=== PATIENT | female | born 1985 | race Caucasian/White ===

== ENCOUNTER 2016-12-02 17:27 | Emergency (ER) | payer BC ==
[2016-12-02 17:44] VITALS: BP 113/79
--- NOTE | 2016-12-02 18:23 | UC ---
Skin Complaint HPI - HPI Summary HPI Summary: The patient comes in today for: 1. Rash, and history of kidney stones and infections: Onset: The spot was noted "a few days ago" and she has been feeling cold in the 90 degree weather for today. Palliative/provocative: Sleep makes her symptoms better. Quality: Body aches and flank pain. Region: Rash if the inner right ankle and the back pain is over the flank areas. Severity: 5/10 Time: Constant. Associated symptoms: Chills. She does not know if she has been bitten by anything. But, her father thinks that the skin lesion "looks like a tick bite." She said that initially, she was not particularly concerned about it, but people around her told her that she "better get it checked." * - History of Current Complaint Chief Complaint: UCBackPain Time Seen by Provider: 12/02/16 18:16 Stated Complaint: FLANK PAIN,TICK BITE Hx Obtained From: Patient Hx Last Menstrual Period: 3 WEEKS AGO ?: No - Allergy/Home Medications Allergies/Adverse Reactions: Allergies Allergy/AdvReac Type Severity Reaction Status Date / Time Molds & Smuts Allergy Severe Congestion Verified 12/02/16 17:45 NSAIDs Allergy Severe SEE Verified 12/02/16 17:47 COMMENTS Shellfish Allergy Allergy Severe Anaphylatic Verified 12/02/16 17:45 Shock Bacitracin [From Neosporin] Allergy Swelling Verified 12/02/16 17:45 Hydromorphone [From Dilaudid] Allergy APNEA Verified 12/02/16 17:45 Neomycin [From Neosporin] Allergy Swelling Verified 12/02/16 17:45 Polymyxin B [From Neosporin] Allergy Swelling Verified 12/02/16 17:45 Tramadol Allergy Hallucinati Verified 12/02/16 17:45 ons DHE Allergy UNABLE TO Uncoded 06/11/16 21:07 SWALLOW Home Medications: Home Medications Bethanechol TAB* [Urecholine TAB*] 10 mg PO QID 12/02/16 [History Confirmed ] Sucralfate TAB* [Carafate*] 1 gm PO QID 12/02/16 [History Confirmed 12/02/16] Topiramate [Trokendi Xr] 12/02/16 [History] Review of Systems Constitutional: Negative, Chills - Chills in the office cold with AC. Skin: Rash Eyes: Negative ENT: Negative Respiratory: Negative Cardiovascular: Negative Gastrointestinal: Negative Genitourinary: Frequency Musculoskeletal: Arthralgia, Myalgia All Other Systems Reviewed And Are Negative: Yes PMH/Surg Hx/FS Hx/Imm Hx Previously Healthy: No - Gastroparesis, Herpes, Gastritis, Family planning/BCP, colon polyps Endocrine History Of: Denies: Diabetes, Thyroid Disease, Hyperthyroidism, Hypothyroidism, Dyslipidemia Cardiovascular History Of: Denies: Cardiac Disorders, Hypertension, Pacemaker/ICD, Myocardial Infarction , Congestive Heart Failure, Atrial Fibrillation, Deep Vein Thrombosis, Bleeding Disorders Respiratory History Of: Denies: COPD, Asthma, Bronchitis, Pneumonia, Pulmonary Embolism GI/ History Of: Reports: Kidney Stones, Renal Disease - MAY HAVE SOME RENAL INSUFF WAS TOLD BY PMD NOT TO HAVE NSAIDS Denies: Gastroesophageal Reflux, Ulcer, Gastrointestinal Bleed, Gall Bladder Disease, Diverticulitis, Urosepsis Neurological History Of: Reports: Migraine Denies: TIA, CVA, Dementia, Seizures Psychological History Of: Reports: Depression Denies: Anxiety, Bipolar Disorder, Schizophrenia, Post Traumatic Stress Disorder Cancer History Of: Denies: Lung Cancer, Colorectal Cancer, Breast Cancer, Prostate Cancer, Cervical Cancer Other History Of: Negative For: HIV, Hepatitis B, Hepatitis C, Anticoagulant Therapy - Surgical History Surgical History: Yes Surgery Procedure, Year, and Place: UPPER PELVIC GRAFT- AGE 4. SCAR TISSUE REMOVED- AGE 25 - Family History Known Family History: Positive: Hypertension, Diabetes - Social History Occupation: Employed Full-time Alcohol Use: None Substance Use Type: None Smoking Status (MU): Never Smoked Tobacco Physical Exam Triage Information Reviewed: Yes Appearance: Well-Appearing, No Pain Distress, Well-Nourished Vital Signs: Initial Vital Signs Temp 98.2 F 12/02/16 17:38 Pulse 94 12/02/16 17:38 Resp 16 12/02/16 17:38 BP 113/79 12/02/16 17:38 Pulse Ox 99 12/02/16 17:38 Vital Signs Reviewed: Yes Eyes: Positive: Conjunctiva Clear. Negative: Discharge ENT: Positive: Hearing grossly normal. Negative: Pharyngeal erythema, Nasal congestion, Nasal drainage, TM bulging, TM dull, TM red, Tonsillar swelling, Tonsillar exudate Dental: Negative: Gross Decay/Caries @, Dental Fracture @ Neck: Positive: Supple, Nontender, No Lymphadenopathy. Negative: Nuchal Rigidity, Tenderness @ Respiratory: Positive: Chest non-tender, Lungs clear, No respiratory distress, No accessory muscle use. Negative: Crackles, Rhonchi Cardiovascular: Positive: RRR, No Murmur Abdomen Description: Positive: Nontender, No Organomegaly, Soft. Negative: CVA Tenderness (R), CVA Tenderness (L), Distended, Guarding Musculoskeletal: Positive: Strength Intact, ROM Intact Neurological: Positive: Alert, Muscle Tone Normal Psychological: Positive: Age Appropriate Behavior, Consolable Skin: Positive: Other - There was a dark, red macule of the right medial ankle which was non-tender.. Negative: rashes, breakdown Diagnostics - Laboratory Diagnostic Studies Completed/Ordered: Urine screen: Specific gravity: 1.015. WBC: (-). Nitrite: (-). Blood: (-). Protein: (-). Glucose: (-) Course/Dx - Course Course Of Treatment: The patient was told that her skin lesion on the medial right ankle did not resemble the usual rash of LYme disease and with her not knowing of any tick bite, at this time my recommendation was to monitor this. - Diagnoses Provider Diagnoses: Skin lesion Discharge - Discharge Plan Condition: Stable Disposition: HOME Patient Education Materials: Dermatitis (ED) Referrals: No Primary Care Phys,NOPCP [Primary Care Provider] - 1 Week (Please see your primary care provider in about a week to see how well you are doing. If you don't have a primary care provider, please contact the physician referral service. If you can't get in timely, please you may come back to see us until you can. If you get worse, please be seen sooner by us or the ER.) [facility]IAN REFERRAL [Outside]
== END 2016-12-02 19:10 | disposition home or self-care (01) ==
LOC: UCEAST 17:27
DX: L98.9 Disorder of the skin and subcutaneous tissue, unspecified (principal)
CPT/HCPCS: 81003; 99212; G0463

== ENCOUNTER → 2017-04-27 15:26 | Emergency (ER) | payer BC, OTHER ==
[~2017-04-27 15:26] MED LIST: HYDROcodone/ACETAMIN 5-325 MG* 1 TAB PO ONE; Ondansetron ODT TAB* 4 MG SL ONE
[2017-04-27 17:53] LABS: Urine Bilirubin Negative (Negative); Urine Glucose Negative (Negative); Urine Nitrite Negative (Negative)
--- NOTE | 2017-04-27 18:41 | ED ---
Back Pain - HPI Summary HPI Summary: Patient presents to the ED with CC of left flank pain after falling at work into a bar and hitting her head on a muffler. Denies LOC. Notes to some nausea. Denies visual changes, memory loss. States she had confusion immediatley following which has now dissipated. Denies other symptoms. She was concerned because she has a history of hydronephrosis of the right kidney and she feels she may have damaged her left kidney. There is bruising noted just over the left iliac crest and inferior to the left kidney. No CVA tenderness bilaterally. Denies urinary symptoms. - History of Current Complaint Chief Complaint: EDFlankPain Stated Complaint: FALL, LEFT FLANK PAIN, ARM PAIN Time Seen by Provider: 04/27/17 16:41 Hx Obtained From: Patient Hx Last Menstrual Period: 3 WEEKS AGO Onset/Duration: Sudden Onset Onset/Duration: Started Minutes Ago Timing: Constant Back Pain Location: Is Discrete @ - left hip and back Severity Initially: Moderate Severity Currently: Moderate Pain Intensity: 6 Pain Scale Used: 0-10 Numeric Character: Aching Aggravating Symptom(s): Movement Alleviating Symptom(s): Rest, Position Related History: Previous Back Injury - Risk Factors AAA Risk Factors: Negative TAD Risk Factors: Negative Cauda Equina Risk Factors: Negative Epidural Abscess Risk Factors: Negative - Allergies/Home Medications Allergies/Adverse Reactions: Allergies Allergy/AdvReac Type Severity Reaction Status Date / Time Molds & Smuts Allergy Severe Congestion Verified 12/02/16 17:45 NSAIDs Allergy Severe SEE Verified 12/02/16 17:47 COMMENTS Shellfish Allergy Allergy Severe Anaphylatic Verified 12/02/16 17:45 Shock Bacitracin [From Neosporin] Allergy Swelling Verified 12/02/16 17:45 Hydromorphone [From Dilaudid] Allergy APNEA Verified 12/02/16 17:45 Neomycin [From Neosporin] Allergy Swelling Verified 12/02/16 17:45 Polymyxin B [From Neosporin] Allergy Swelling Verified 12/02/16 17:45 Tramadol Allergy Hallucinati Verified 12/02/16 17:45 ons DHE Allergy UNABLE TO Uncoded 06/11/16 21:07 SWALLOW PMH/Surg Hx/FS Hx/Imm Hx Previously Healthy: Yes Endocrine/Hematology History: Reports: Other Endocrine/Hematological Disorders - low K+, low Mg, enlarged right kidney Denies: Hx Anticoagulant Therapy, Hx Diabetes, Hx Thyroid Disease Cardiovascular History: Denies: Hx Congestive Heart Failure, Hx Deep Vein Thrombosis, Hx Hypertension , Hx Myocardial Infarction, Hx Pacemaker/ICD Respiratory History: Denies: Hx Asthma, Hx Chronic Obstructive Pulmonary Disease (COPD), Hx Lung Cancer, Hx Pneumonia, Hx Pulmonary Embolism GI History: Denies: Hx Gall Bladder Disease, Hx Gastrointestinal Bleed, Hx Ulcer, Hx Urosepsis History: Reports: Hx Kidney Stones, Hx Renal Disease - MAY HAVE SOME RENAL INSUFF WAS TOLD BY PMD NOT TO HAVE NSAIDS Neurological History: Reports: Hx Migraine Denies: Hx Dementia, Hx Seizures, Hx Transient Ischemic Attacks (TIA) Psychiatric History: Reports: Hx Depression Denies: Hx Anxiety, Hx Schizophrenia, Hx Bipolar Disorder - Surgical History Surgery Procedure, Year, and Place: UPPER PELVIC GRAFT- AGE 4. SCAR TISSUE REMOVED- AGE 25 - Immunization History Hx Pertussis Vaccination: No Immunizations Up to Date: Unable to Obtain/Confirm Infectious Disease History: No Infectious Disease History: Reports: History Other Infectious Disease - Herpes Denies: Traveled Outside the [place] in Last 30 Days - Family History Known Family History: Positive: Hypertension, Diabetes - Social History Occupation: Employed Full-time Lives: With Family Alcohol Use: Rare Hx Substance Use: No Substance Use Type: Reports: None Hx Tobacco Use: No Smoking Status (MU): Never Smoked Tobacco Review of Systems Constitutional: Negative Negative: Fever, Chills, Fatigue Negative: Photophobia, Blurred Vision ENT: Negative Cardiovascular: Negative Respiratory: Negative Positive: Nausea Genitourinary: Negative Positive: no symptoms reported, see HPI Positive: Arthralgia - left posterior hip pain just over the iliac crest with ecchymosis Positive: Bruising Neurological: Negative All Other Systems Reviewed And Are Negative: Yes Physical Exam Triage Information Reviewed: Yes Vital Signs On Initial Exam: Initial Vitals Temp Pulse Resp BP Pulse Ox 98.6 F 94 18 131/77 100 04/27/17 15:34 04/27/17 15:34 04/27/17 15:34 04/27/17 15:34 04/27/17 15:34 Vital Signs Reviewed: Yes Appearance: Positive: Well-Appearing, Well-Nourished Skin: Positive: Warm, Skin Color Reflects Adequate Perfusion, Other - ecchymosis over the left posterior hip Head/Face: Positive: Normal Head/Face Inspection Eyes: Positive: EOMI, CAPO, Conjunctiva Clear Neck: Positive: Supple, No Lymphadenopathy Respiratory/Lung Sounds: Positive: Clear to Auscultation, Breath Sounds Present Cardiovascular: Positive: RRR, Pulses are Symmetrical in both Upper and Lower Extremities Musculoskeletal: Positive: Pain @ - left posterior hip Neurological: Positive: Sensory/Motor Intact, Alert, Oriented to Person Place, Time, CN Intact II-III, Speech Normal Psychiatric: Positive: Normal AVPU Assessment: Alert - Pieter Coma Scale Coma Scale Total: 15 Diagnostics - Vital Signs Vital Signs Temp Pulse Resp BP Pulse Ox 04/27/17 15:34 98.6 F 94 18 131/77 100 - Laboratory Lab Results: Lab Results 04/27/17 Range/Units 17:35 Urine Color Straw Urine Appearance Clear Urine pH 7.0 (5-9) Ur Specific Siren 1.005 L (1.010-1.030) Urine Protein Negative (Negative) Urine Ketones Negative (Negative) Urine Blood Negative (Negative) Urine Nitrate Negative (Negative) Urine Bilirubin Negative (Negative) Urine Urobilinogen Negative (Negative) Ur Leukocyte Esterase Negative (Negative) Urine Glucose Negative (Negative) Lab Statement: Any lab studies that have been ordered have been reviewed, and results considered in the medical decision making process. Back Pain Course/Dx - Course Course Of Treatment: Patient presents s/p fall. She notes to hitting her head, but denies LOC. Denies memory loss. Notes to mild nausea, but also states she has had pain in the left posterior hip just over the iliac crest with ecchymosis. She hit her left hip with a bar and struck her head onto a muffler. Discussed CT scans and the risks and benefits. Patient would like to wait and will return if COLLINS develops or other symptoms. Denies any memory loss or blurry vision. Denies COLLINS. She is given pain medication to dispense to home and as rx. She is given return precautions. GCS score >15 at 2h post injury. No suspected open or depressed skull fx, no sign of basal skull fx, no hemotympanum, raccoon eyes, Battles sign, CSF adal-/rhinorrhea, no emesis after injury, age <64yo, no amnesia greater than 30 minutes prior to trauma, and mechanism of injury was minimal impact with no MVA or fall greater than 3 ft. Complete neuro exam completed and WNL. Normal head/face inspection with no cephalohematoma. Reflexes intact. EOMI, CAPO, visual acuity intact. - Diagnoses Differential Diagnosis/HQI/PQRI: Positive: Strain, Sprain Provider Diagnoses: Back contusion, Head injury Discharge - Discharge Plan Condition: Stable Disposition: HOME Prescriptions: HYDROcodone/ACETAMIN 5-325 MG* [Hallowell 5-325 TAB*] 1 tab PO Q4H PRN #6 tab MDD 6 PRN Reason: Pain Patient Education Materials: Contusion in Adults (ED) Forms: *Work Release Referrals: Tyrese Rojas MD [Primary Care Provider] - Additional Instructions: Tylenol 650mg three times daily Pain medication only as needed for breakthrough pain Moist heat to the area several times per day If you develop any urinary symptoms or worsening pain, return to the ED immediately
[2017-04-27 20:19] VITALS: BP 106/76
== END | disposition home or self-care (01) ==
LOC: ED 15:26
DX: S70.02XA Contusion of left hip, initial encounter (principal); S30.0XXA Contusion of lower back and pelvis, initial encounter; S09.90XA Unspecified injury of head, initial encounter; W18.09XA Striking against other object with subsequent fall, initial encounter; Y93.9 Activity, unspecified; Y92.9 Unspecified place or not applicable; Y99.0 Civilian activity done for income or pay; N28.81 Hypertrophy of kidney; Z87.442 Personal history of urinary calculi; E87.6 Hypokalemia; G43.909 Migraine, unspecified, not intractable, without status migrainosus; F32.9 Major depressive disorder, single episode, unspecified; Z88.6 Allergy status to analgesic agent; Z88.3 Allergy status to other anti-infective agents; Z88.5 Allergy status to narcotic agent; Z91.013 Allergy to seafood
CPT/HCPCS: 81003; 99282; A9270-GY

== ENCOUNTER 2017-06-15 05:39 | Emergency (ER) | payer BC, OTHER ==
[2017-06-15] MEDS ORDERED: NS 0.9% 1000 ML* 2,000 ML IV ONE (06:23)
[2017-06-15] MEDS ORDERED: Ondansetron INJ* 2 MG/ML VIAL IV ONE (06:23)
[2017-06-15] MEDS ORDERED: Morphine INJ* 2 MG/ML 1 ML CARPUJECT IV ONE (06:23)
[2017-06-15] MEDS ORDERED: Morphine INJ* 2 MG/ML 1 ML SYRINGE (TWO MG - NEW SYRINGE VERSION) ONE (06:34)
[2017-06-15 06:49] LABS: Hematocrit 39 % (35-47); Hemoglobin 13.1 g/dl (12.0-16.0); Mean Corpuscular HGB Conc 34 g/dl (31-36); Mean Corpuscular Hemoglobin 32 pg (27-31); Mean Corpuscular Volume 94 fL (80-97); Mean Platelet Volume 8 um3 (7.4-10.4); Red Blood Count 4.11 10^6/ul (4.0-5.4); Red Cell Distribution Width 13 % (10.5-15); White Blood Count 11.2 10^3/ul (3.5-10.8)
[2017-06-15 07:04] LABS: ALT 10 U/L (7-52); AST 17 U/L (13-39); Albumin 3.6 g/dL (3.2-5.2); Alkaline Phosphatase 64 U/L (34-104); Anion Gap 9 mmol/L (2-11); BUN/Creatinine Ratio 17.8 (8-20); Blood Urea Nitrogen 16 mg/dL (6-24); CO2 Carbon Dioxide 26 mmol/L (22-32); Calcium 9.1 mg/dL (8.6-10.3); Chloride 103 mmol/L (101-111); EGFR African American 93.3 (>60); EGFR Non-African American 72.6 (>60); Globulin 3.2 g/dL (2-4); Glucose 101 mg/dL (70-100); Lipase 22 U/L (11.0-82.0); Potassium 3.4 mmol/L (3.5-5.0); Sodium 138 mmol/L (133-145); Total Protein 6.8 g/dL (6.4-8.9)
[2017-06-15] MEDS ORDERED: Morphine INJ* 4 MG/ML 1 ML CARPUJECT IV ONE (07:52)
[2017-06-15] MEDS ORDERED: Metoclopramide IV* 5 MG/ML 2 ML VIAL IV SLOW PU ONE (07:53)
[2017-06-15] MEDS ORDERED: NS 0.9% 1000 ML* 1,000 ML IV ONE (07:53)
[2017-06-15 08:14] LABS: Urine Bacteria Absent (Absent); Urine Bilirubin Negative (Negative); Urine Glucose Negative (Negative); Urine Nitrite Negative (Negative)
[2017-06-15] MEDS ORDERED: Iohexol 300* (CONTRAST) 10 ML SDV IV ONE (08:42)
[2017-06-15] MEDS ORDERED: Morphine INJ* 4 MG/ML 1 ML CARPUJECT ONE (08:43)
--- NOTE | 2017-06-15 09:26 | RAD ---
INDICATION: Abdominal pain, evaluate for appendicitis. COMPARISON: Comparison is made with a prior CT of the abdomen and pelvis from June 11, 2016. TECHNIQUE: A CT scan of the abdomen and pelvis was performed with intravenous and oral contrast following intravenous injection of 100 ml of Omnipaque 300 nonionic contrast. Contiguous axial sections were obtained from the lung bases through the symphysis pubis. Images were reconstructed in the coronal and sagittal planes. FINDINGS: The lung bases are clear. No pleural effusion is present. The liver and spleen are normal in size. There is a small hypodense area in the lateral aspect of the right hepatic lobe measuring 0.5 cm in size which is too small to characterize by CT although unchanged from the prior exam and likely represents a small cyst. No other focal hepatic abnormalities are seen. No calcific gallstones are seen noted. The pancreas appears to be within normal limits. The adrenal glands appear to be within normal limits. There is enlargement of the right kidney. There is severe dilatation of the right renal calyces and pelvis. The right ureter is not significantly distended. These findings appear similar to the prior exam and would be most consistent with a chronic right ureteropelvic junction obstruction. The urinary bladder is normal without wall thickening. No bladder calculi are seen. The aorta is normal in caliber and demonstrates homogeneous contrast opacification. No significant enlarged retroperitoneal lymph nodes are seen. The stomach, small and large bowel appear nondistended. The appendix is within normal limits. There is mild sigmoid diverticulosis. There is no evidence for diverticulitis or colitis. The uterus is anteverted and normal in size. No free intraperitoneal air or fluid is seen. There is a [id number] lumbar scoliosis convex toward the left side. No significant focal osseous abnormality is seen. IMPRESSION: 1. NO EVIDENCE FOR ACUTE FINDING OR CAUSE FOR THE PATIENT'S ABDOMINAL PAIN IS SEEN. 2. SEVERE CHRONIC RIGHT HYDRONEPHROSIS WHICH APPEARS TO BE SECONDARY TO URETEROPELVIC JUNCTION OBSTRUCTION AND UNCHANGED FROM THE PRIOR EXAM. RECOMMEND UROLOGIC CONSULTATION.
[2017-06-15 10:24] VITALS: BP 98/66
== END 2017-06-15 10:33 ==
LOC: ED 05:39
DX: R10.9 Unspecified abdominal pain (principal)
CPT/HCPCS: 36415; 74177; 80053; 81003; 81015; 83690; 84702; 85025; 85610; 85730; 87086; 96374; 96375; 99283; J2270; J2405; J2765; Q9967

== ENCOUNTER 2017-09-06 12:21 | Emergency (ER) | payer BC ==
[2017-09-06] MEDS ORDERED: Albuterol/Ipratropium NEB.SOL* Albuterol 2.5 MG/Ipratropium 0.5 MG 3 ML INH ONE (15:10)
--- NOTE | 2017-09-06 15:14 | UC ---
FLU HPI - HPI Summary HPI Summary: Pt presents with mild sore throat, cough, and chest "hurting" with deep breath since last night. She has a history of asthma. She does have an albuterol inhaler at home, but has not used it. She also says that she is unsure if she is having cardiac chest pain or if it is her "lungs" that are hurting when she breathes. Denies fever, chills, SOB, n/v/d/c, palpitations, or body aches. - History of Current Complaint Chief Complaint: UCRespiratory Stated Complaint: FLU SYMPTOMS Time Seen by Provider: 09/06/17 14:58 Hx Obtained From: Patient Hx Last Menstrual Period: 08/16/17 Severity Currently: Mild Severity Initially: Mild Pain Intensity: 4 Pain Scale Used: 0-10 Numeric - Allergy/Home Medications Allergies/Adverse Reactions: Allergies Allergy/AdvReac Type Severity Reaction Status Date / Time bacitracin Allergy Swelling Verified 09/06/17 13:36 dihydroergotamine Allergy See Comment Verified 09/06/17 13:38 hydromorphone [From Dilaudid] Allergy See Comment Verified 09/06/17 13:35 neomycin Allergy Swelling Verified 09/06/17 13:33 NSAIDS (Non-Steroidal Allergy GI Upset Verified 09/06/17 13:37 Anti-Inflamma polymyxin B Allergy Swelling Verified 09/06/17 13:36 shellfish derived Allergy Anaphylatic Verified 09/06/17 13:35 Shock tramadol Allergy Hallucinati Verified 09/06/17 13:33 ons DHE Allergy UNABLE TO Uncoded 06/11/16 21:07 SWALLOW molds Allergy Congestion Uncoded 09/06/17 13:33 Home Medications: Home Medications Albuterol HFA INHALER* [Ventolin HFA Inhaler*] 2 puff INH Q4H PRN 09/06/17 [ History Confirmed 09/06/17] Doxylamine/Phenylep/Dm/Aspirin [Zeinab-Colstrip Plus Day/Nig] 1 mis PO DAILY PRN [History Confirmed 09/06/17] Fexofenadine (NF) [Lizet 180 (NF)] 180 mg PO DAILY 09/06/17 [History Confirmed 09/06/17] Pantoprazole TAB (NF) [Protonix TAB (NF)] 40 mg PO DAILY 09/06/17 [History Confirmed 09/06/17] Sertraline* [Zoloft*] 50 mg PO DAILY 09/06/17 [History Confirmed 09/06/17] ValACYclovir (*) [Valtrex 500 mg (*)] 500 mg PO DAILY 09/06/17 [History Confirmed 09/06/17] PMH/Surg Hx/FS Hx/Imm Hx Respiratory History: Asthma GI/ History: Gastroesophageal Reflux Other History Of: Negative For: HIV, Hepatitis B, Hepatitis C, Anticoagulant Therapy - Surgical History Surgical History: Yes Surgery Procedure, Year, and Place: UPPER PELVIC GRAFT- AGE 4. SCAR TISSUE REMOVED- AGE 25 - Family History Known Family History: Positive: Hypertension, Diabetes - Social History Lives: With Family Alcohol Use: Rare Substance Use Type: None Smoking Status (MU): Never Smoked Tobacco Review of Systems Constitutional: Negative Skin: Negative Eyes: Negative ENT: Sore Throat Respiratory: Shortness Of Breath, Cough Cardiovascular: Chest Pain Gastrointestinal: Negative Genitourinary: Negative Musculoskeletal: Negative Neurological: Negative Psychological: Negative All Other Systems Reviewed And Are Negative: Yes Physical Exam Triage Information Reviewed: Yes Appearance: Well-Appearing, No Pain Distress, Well-Nourished Vital Signs: Initial Vital Signs Temp 98.1 F 09/06/17 13:20 Pulse 90 09/06/17 13:20 Resp 16 09/06/17 13:20 BP 113/81 09/06/17 13:20 Pulse Ox 100 09/06/17 13:20 Vital Signs Reviewed: Yes Eyes: Positive: Conjunctiva Clear. Negative: Conjunctiva Inflamed, Discharge ENT: Positive: Hearing grossly normal, Pharynx normal, TMs normal, Uvula midline. Negative: Pharyngeal erythema, Nasal congestion, Nasal drainage, TM bulging, TM dull, TM red, Tonsillar swelling, Tonsillar exudate, Hoarse voice, Sinus tenderness Neck: Positive: Supple, Nontender, No Lymphadenopathy Respiratory: Positive: Lungs clear, No respiratory distress, No accessory muscle use, Wheezing - Moderate throughout. Negative: Crackles Cardiovascular: Positive: RRR, No Murmur, Pulses Normal Abdomen Description: Positive: Nontender, No Organomegaly, Soft. Negative: CVA Tenderness (R), CVA Tenderness (L), Distended, Guarding Bowel Sounds: Positive: Present Neurological: Positive: Fatigued Psychological: Positive: Age Appropriate Behavior Skin: Negative: rashes, significant lesion(s) Re-Evaluation - Re-Evaluation First Eval Re-Evaluation Time: 16:07 Change: Improved Comment: Pt reports feeling easier to breathe. Lung sounds improved with no wheezing Flu Course/Dx - Course Course Of Treatment: POC flu negative. CXR: IMPRESSION: No active cardiopulmonary disease is noted. EKG NSR 69bpm no ST changes as read by Dr. Pate. Her breathing improved after treatment with Duoneb. Suspect this is bronchitis vs asthma exacerbation. Will treat with amoxicillin and prednisone. Advised to use at home albuterol inhaler. - Differential Dx/Diagnosis Provider Diagnoses: Bronchitis. Asthma Discharge - Discharge Plan Condition: Stable Disposition: HOME Prescriptions: Amoxicillin PO (*) [Amoxicillin 500 MG CAP*] 500 mg PO Q12H #20 cap Fluconazole 100 MG TAB* [Diflucan 100 MG TAB*] 100 mg PO DAILY #2 tab predniSONE TAB* [Deltasone TAB*] 40 mg PO DAILY #10 tab Patient Education Materials: Acute Bronchitis (ED) Referrals: Ericka Hobson NP [Primary Care Provider] - Additional Instructions: If you develop a fever, shortness of breath, chest pain, new or worsening symptoms - please call your PCP or go to the ED.
--- NOTE | 2017-09-06 15:47 | RAD ---
Indication: Cough. 2 views of the chest including dual energy PA views demonstrate no mediastinal shift. Heart is of normal size and configuration. Lung cole are clear. IMPRESSION: No active cardiopulmonary disease is noted.
[2017-09-06 15:48] VITALS: BP 0/0
== END 2017-09-06 16:20 | disposition home or self-care (01) ==
LOC: UCEAST 12:21
DX: J45.909 Unspecified asthma, uncomplicated (principal); R05 Cough; R07.1 Chest pain on breathing; K21.9 Gastro-esophageal reflux disease without esophagitis; Z88.6 Allergy status to analgesic agent; Z88.3 Allergy status to other anti-infective agents; Z88.5 Allergy status to narcotic agent
CPT/HCPCS: 71046; 87502; 93005; 99212; A9270-GY; G0463

== ENCOUNTER 2017-11-02 09:14 | Emergency (ER) | payer BC ==
[2017-11-02 09:26] VITALS: BP 131/82
[2017-11-02] MEDS ORDERED: Ondansetron ODT TAB* 4 MG PO ONE ×2 (09:58→10:14)
[2017-11-02] MEDS ORDERED: Ketorolac INJ* 30 MG/ML 1 ML VIAL IM ONE (10:15)
--- NOTE | 2017-11-02 10:20 | UC ---
Demarcus Garnica Julia, scribed for Nohemi Mcdonnell MD on 11/02/17 at 1000 . Complaint Female HPI - HPI Summary HPI Summary: This patient is a 32 year old F presenting to [facility] with a chief complaint of right flank pain with difficulty urinating and abdominal discomfort. Patient reports lightheadedness, nausea, and vomiting beginning yesterday. She vomited once last night, several episodes of dry heaves this morning, and at work started with yellow vomitus. Pt states pain and pressure in left back and LLQ. Patient denies fever and diarrhea. Pt is unaware bloody or black stool. She states she generally been constipated but had a normal BM this morning. The patient rates the pain 6/10 in severity. Pt with a h/o chronic hydronephrosis due to ureter obstructing. Pt states she also has stents and renal colic. Pt states had a urologist at [facility] - is waiting to establish with a new specialist. Symptoms aggravated by BM.Pt has hx of gastritis. Pt has history of kidney stones and hydronephrosis. No analgesia taken [employer]. Medications and allergies reviewed. Previous visits reviewed. - History Of Current Complaint Chief Complaint: UCGU Stated Complaint: BACK PAIN, NAUSEA, AND VOMITING Hx Obtained From: Patient Hx Last Menstrual Period: 3 weeks Onset/Duration: Lasting Days, Still Present Timing: Constant Severity Initially: Moderate Severity Currently: Moderate Pain Intensity: 6 Pain Scale Used: 0-10 Numeric Character: Dull, Cramping, Colicy Aggravating Factor(s): Nothing Alleviating Factor(s): Nothing Associated Signs And Symptoms: Positive: Back Pain - R flank pain, Nausea, Vomiting(# Of Episodes =) Related Hx: Similar Episode/Dx as: - kidney stones, hydronephrosis - Allergies/Home Medications Allergies/Adverse Reactions: Allergies Allergy/AdvReac Type Severity Reaction Status Date / Time dihydroergotamine Allergy See Comment Verified 11/02/17 09:29 hydromorphone [From Dilaudid] Allergy See Comment Verified 11/02/17 09:29 neomycin Allergy Swelling Verified 11/02/17 09:29 shellfish derived Allergy Anaphylatic Verified 11/02/17 09:29 Shock tramadol Allergy Hallucinati Verified 11/02/17 09:29 ons NSAIDS (Non-Steroidal AdvReac GI Upset Verified 04/18/18 09:29 Anti-Inflamma DHE Allergy UNABLE TO Uncoded 11/02/17 09:29 SWALLOW molds Allergy Congestion Uncoded 11/02/17 09:29 Home Medications: Home Medications Lansoprazole [Prevacid] 1 cap PO DAILY 11/02/17 [History Confirmed 11/02/17] Loratadine 1 tab PO DAILY 11/02/17 [History Confirmed 11/02/17] Potassium Magnesium 1 tab PO BID PRN 11/02/17 [History] Triamterene/HCTZ 37.5-25 MG* [Dyazide CAP*] 1 cap PO BID 11/02/17 [History Confirmed 11/02/17] PMH/Surg Hx/FS Hx/Imm Hx Previously Healthy: Yes GI/ History: Gastroesophageal Reflux, Kidney Stones, Renal Disease - hydronephrosis Other GI/ History: nephrostomy Psychological History: Depression Other History Of: Negative For: HIV, Hepatitis B, Hepatitis C, Anticoagulant Therapy - Surgical History Surgical History: Yes Surgery Procedure, Year, and Place: UPPER PELVIC GRAFT- AGE 4. Nephrostomy tube. SCAR TISSUE REMOVED- AGE 25 - Family History Known Family History: Positive: Hypertension, Diabetes - Social History Occupation: Employed Full-time Lives: With Family Alcohol Use: Rare Substance Use Type: None Smoking Status (MU): Never Smoked Tobacco - Immunization History Most Recent Tetanus Shot: UTD Review of Systems Gastrointestinal: Abdominal Pain, Vomiting, Nausea Genitourinary: Urgency, Other - flank pain Neurological: Other - lightheaded All Other Systems Reviewed And Are Negative: Yes Physical Exam Triage Information Reviewed: Yes Appearance: Well-Nourished, Pain Distress, Other: - active vomiting in UC Vital Signs: Initial Vital Signs Temp 98.6 F 11/02/17 09:19 Pulse 95 11/02/17 09:19 Resp 18 11/02/17 09:19 BP 131/82 11/02/17 09:19 Pulse Ox 100 11/02/17 09:19 Vital Signs Reviewed: Yes Eye Exam: Normal Eyes: Positive: Conjunctiva Clear ENT Exam: Normal ENT: Positive: Normal ENT inspection, Hearing grossly normal Dental Exam: Normal Neck exam: Normal Neck: Positive: Supple, Nontender, No Lymphadenopathy Respiratory: Positive: Lungs clear, Normal breath sounds, No respiratory distress, No accessory muscle use Cardiovascular Exam: Normal Cardiovascular: Positive: RRR, No Murmur Abdomen Description: Positive: No Organomegaly, CVA Tenderness (L). Negative: Nontender - soft +BS + TTP LLQ no guarding, no rebound Musculoskeletal Exam: Normal Musculoskeletal: Positive: Strength Intact Neurological Exam: Normal Neurological: Positive: Alert Psychological Exam: Normal Skin Exam: Normal Complaint Female Dx - Course Course Of Treatment: PT with intractable nausea, vomiting and left flank pain. Pt with h/o renal colic, chronic left hydro and gastritis. Pt with active vomiting and obvious discomfort. Offered pt IV, zofran, pepcid, morphine - pt adamant wants to go by POV second to finances. d/w pt optiions - will give 1 dose IM toradol - pt generally avoids NSAIDS second to gastriris. Pt will contact mom for transportation. pt vomited after 1zofran - second ODT tab given. Will discharge with referral to ED. Pt comfortable and in agreement with plan - Differential Dx/Diagnosis Provider Diagnoses: intractable vomiting. left flank pain Discharge - Sign-Out/Discharge Documenting (check all that apply): Discharge - Discharge Plan Condition: Good Disposition: HOME Patient Education Materials: Acute Nausea and Vomiting (ED), Flank Pain (ED) Referrals: Ericka Hobson NP [Primary Care Provider] - Additional Instructions: As discussed with the provider at urgent care, it is recommended you go directly to the emergency department for further evaluation and treatment. Go directly to the emergency department at [facility]. If you symptoms worsen or you have any concerns enroute, picker/puller and call 911 for assistance. You should not be driving and you have indicated you have a family member that will be driving you. - Billing Disposition and Condition Condition: GOOD Disposition: HOME The documentation as recorded by the Demarcus jimenez Julia accurately reflects the service I personally performed and the decisions made by me, Nohemi Mcdonnell MD.
== END 2017-11-02 10:30 | disposition home or self-care (01) ==
LOC: UCEAST 09:14
DX: R11.10 Vomiting, unspecified (principal); R10.32 Left lower quadrant pain; M54.5 Low back pain; Z32.02 Encounter for pregnancy test, result negative; K21.9 Gastro-esophageal reflux disease without esophagitis; Z87.442 Personal history of urinary calculi; Z93.6 Other artificial openings of urinary tract status; F32.9 Major depressive disorder, single episode, unspecified; Z88.6 Allergy status to analgesic agent; Z88.1 Allergy status to other antibiotic agents; Z88.5 Allergy status to narcotic agent; Z88.8 Allergy status to other drugs, medicaments and biological substances
CPT/HCPCS: 81003; 84702; 96372; 99212; A9270-GY; G0463; J1885

== ENCOUNTER 2017-11-02 10:53 | Emergency (ER) | payer BC ==
[2017-11-02 11:22] LABS: Urine Appearance Clear; Urine Blood 1+ (Negative); Urine Color Straw; Urine Ketones Negative (Negative); Urine Protein Negative (Negative); Urine Specific Gravity 1.003 (1.010-1.030); Urine Urobilinogen Negative (Negative)
[2017-11-02] MEDS ORDERED: NS 0.9% 1000 ML* 1,000 ML IV ONE (12:32)
[2017-11-02] MEDS ORDERED: Ondansetron INJ* 2 MG/ML VIAL IV ONE (12:32)
[2017-11-02] MEDS ORDERED: Morphine INJ* 10 MG/ML 1 ML CARPUJECT IV ONE (12:32)
--- NOTE | 2017-11-02 13:19 | RAD ---
Indication: Right flank pain. CT of the abdomen and pelvis was performed without oral or IV contrast administration. Comparison is made with previous exam dated 06/15/2017 and 03/25/2016. Lung bases demonstrate no pleural fluid, nodules or masses. Heart is of normal size without evidence of pericardial effusion. Liver is normal in size. There is no intrahepatic duct dilatation. Low density lesion in the periphery of the right lobe of liver is unchanged measuring approximately 5 mm. Pancreas demonstrates no mass or pancreatic duct dilatation. Spleen is normal in size. Common duct is not dilated. No adrenal masses are noted. There is moderate to severe right hydronephrosis noted which appears to be chronic although the renal pelvis appears to be decompressed. This is similar to multiple prior exams. Left kidney shows no hydronephrosis. No retroperitoneal lymphadenopathy is noted. No dilated loops of bowel are present. Aorta and inferior vena cava are unremarkable. CT of the pelvis demonstrates no dilated loops of bowel. The urinary bladder is unremarkable. The colon is filled with stool. No free fluid is identified. The appendix is normal. Uterus and ovaries are unremarkable. No hernias are identified. IMPRESSION: There appears to be chronic right hydronephrosis noted however the right renal pelvis appears to be decompressed. The hydronephrosis appears to be similar to that seen on 06/15/2017 and 03/25/2016. Probable right lobe hepatic cyst unchanged from prior exam.
[2017-11-02 13:32] LABS: ABS Basophils 0 10^3/ul (0-0.2); ABS Eosinophils 0.1 10^3/ul (0-0.6); ABS Lymphocytes 1.6 10^3/ul (1.0-4.8); ABS Monocytes 0.9 10^3/ul (0-0.8); ABS Neutrophils 6.2 10^3/ul (1.5-7.7); ABS Nucleated RBC 0 10^3/ul; Eosinophil % 0.6 % (0-6); Hematocrit 39 % (35-47); Hemoglobin 13.2 g/dl (12.0-16.0); Lymphocyte % 18.5 % (25-47); Mean Corpuscular HGB Conc 34 g/dl (31-36); Mean Corpuscular Hemoglobin 31 pg (27-31); Mean Corpuscular Volume 92 fL (80-97); Mean Platelet Volume 8.8 um3 (7.4-10.4); Nucleated Red Blood Cells % 0; Platelet Count 270 10^3/ul (150-450); Red Blood Count 4.26 10^6/ul (4.0-5.4); Red Cell Distribution Width 13 % (10.5-15); White Blood Count 8.8 10^3/ul (3.5-10.8)
[2017-11-02 13:50] LABS: EGFR Non-African American 66.9 (>60)
[2017-11-02] MEDS ORDERED: Potassium Chlor TAB* 20 MEQ TAB.ER PO ONE (14:01)
[2017-11-02 15:27] VITALS: BP 122/74
--- NOTE | 2017-11-02 16:29 | ED ---
Back Pain - HPI Summary HPI Summary: Patient is a 32-year-old year-old female who presents emergency department for right flank pain, nausea and vomiting 2 days. 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 She also has chronic hydronephrosis secondary. She states she has not seen a urologist in years and procedure was done elsewhere. She denies fever, chills, upper respiratory symptoms. Admits to mild dysuria. She has had one kidney stone in the past. Symptoms are moderate in severity. No current modifying factors. Patient was seen in urgent care prior to arrival and received an injection of Toradol which is moderately for the pain. - History of Current Complaint Chief Complaint: EDFlankPain Stated Complaint: FLANK PAIN-CC TRANSFER Time Seen by Provider: 11/02/17 12:23 Hx Obtained From: Patient Hx Last Menstrual Period: 3 weeks Pain Intensity: 3 Pain Scale Used: 0-10 Numeric - Allergies/Home Medications Allergies/Adverse Reactions: Allergies Allergy/AdvReac Type Severity Reaction Status Date / Time dihydroergotamine Allergy See Comment Verified 11/02/17 09:29 hydromorphone [From Dilaudid] Allergy See Comment Verified 11/02/17 09:29 neomycin Allergy Swelling Verified 11/02/17 09:29 shellfish derived Allergy Anaphylatic Verified 11/02/17 09:29 Shock tramadol Allergy Hallucinati Verified 11/02/17 09:29 ons NSAIDS (Non-Steroidal AdvReac GI Upset Verified 11/02/17 09:29 Anti-Inflamma DHE Allergy UNABLE TO Uncoded 11/02/17 09:29 SWALLOW molds Allergy Congestion Uncoded 11/02/17 09:29 Home Medications: Home Medications Lansoprazole CAP (NF) [Prevacid CAP (NF)] 15 mg PO DAILY 11/02/17 [History Confirmed 11/02/17] LoraTADine TAB(NF) [Claritin 10 MG TAB(NF)] 10 mg PO DAILY 11/02/17 [History Confirmed 11/02/17] Potassium &Magnesium Aspartate [Ra Potassium/Magnesium As 250-250 mg] 1 cap PO BID PRN 11/02/17 [History Confirmed 11/02/17] PMH/Surg Hx/FS Hx/Imm Hx Previously Healthy: Yes Endocrine/Hematology History: Reports: Other Endocrine/Hematological Disorders - low K+, low Mg, enlarged right kidney Denies: Hx Anticoagulant Therapy, Hx Diabetes, Hx Thyroid Disease Cardiovascular History: Denies: Hx Congestive Heart Failure, Hx Deep Vein Thrombosis, Hx Hypertension , Hx Myocardial Infarction, Hx Pacemaker/ICD Respiratory History: Reports: Hx Asthma - asthmatic bronchitis Denies: Hx Chronic Obstructive Pulmonary Disease (COPD), Hx Lung Cancer, Hx Pneumonia, Hx Pulmonary Embolism GI History: Denies: Hx Gall Bladder Disease, Hx Gastrointestinal Bleed, Hx Ulcer, Hx Urosepsis History: Reports: Hx Kidney Stones, Hx Renal Disease - MAY HAVE SOME RENAL INSUFF WAS TOLD BY PMD NOT TO HAVE NSAIDS Neurological History: Reports: Hx Migraine Denies: Hx Dementia, Hx Seizures, Hx Transient Ischemic Attacks (TIA) Psychiatric History: Reports: Hx Depression Denies: Hx Anxiety, Hx Schizophrenia, Hx Bipolar Disorder - Surgical History Surgery Procedure, Year, and Place: UPPER PELVIC GRAFT- AGE 4. Nephrostomy tube. SCAR TISSUE REMOVED- AGE 25 - Immunization History Date of Tetanus Vaccine: 03/2011 Date of Influenza Vaccine: 2016 Infectious Disease History: No Infectious Disease History: Reports: History Other Infectious Disease - Herpes Denies: Traveled Outside the [place] in Last 30 Days - Family History Known Family History: Positive: Hypertension, Diabetes - Social History Occupation: Employed Full-time Lives: With Family Alcohol Use: Rare Hx Substance Use: No Substance Use Type: Reports: None Hx Tobacco Use: No Smoking Status (MU): Never Smoked Tobacco Review of Systems Negative: Fever, Chills Eyes: Negative ENT: Negative Cardiovascular: Negative Respiratory: Negative Positive: Vomiting, Nausea, Other - right flank pain Positive: dysuria Neurological: Negative All Other Systems Reviewed And Are Negative: Yes Physical Exam Triage Information Reviewed: Yes Vital Signs On Initial Exam: Initial Vitals Temp Pulse Resp BP Pulse Ox 98.8 F 97 18 126/88 99 11/02/17 10:54 11/02/17 10:54 11/02/17 10:54 11/02/17 10:54 11/02/17 10:54 Vital Signs Reviewed: Yes Appearance: Positive: Well-Appearing - Patient sitting in bed in no acute distress. Mother present. Skin: Positive: Warm, Dry Head/Face: Positive: Normal Head/Face Inspection Eyes: Positive: Normal Neck: Positive: Supple Respiratory/Lung Sounds: Positive: Clear to Auscultation, Breath Sounds Present Cardiovascular: Positive: Normal, RRR Abdomen Description: Positive: Other: - Abdomen is soft with mild tenderness to the right lower quadrant. No rebound tenderness or guarding. Mild CVA tenderness on the right. Psychiatric: Positive: Normal Diagnostics - Vital Signs Vital Signs Temp Pulse Resp BP Pulse Ox 11/02/17 15:26 97.8 F 83 17 122/74 99 11/02/17 15:00 80 119/73 97 11/02/17 14:31 78 123/82 99 11/02/17 14:00 70 128/74 100 11/02/17 13:30 73 126/79 100 11/02/17 13:08 16 11/02/17 13:01 83 100 11/02/17 12:59 83 120/94 99 11/02/17 12:53 76 116/86 99 11/02/17 12:43 75 116/87 99 11/02/17 12:38 83 125/87 97 11/02/17 12:33 85 130/90 100 11/02/17 12:28 82 120/75 100 11/02/17 12:25 79 99 11/02/17 12:23 83 119/76 99 11/02/17 10:54 98.8 F 97 18 126/88 99 - Laboratory Lab Results: Lab Results 11/02/17 11/02/17 11/02/17 Range/Units 11:00 13:05 13:05 WBC 8.8 (3.5-10.8) 10^3/ul RBC 4.26 (4.0-5.4) 10^6/ul Hgb 13.2 (12.0-16.0) g/dl Hct 39 (35-47) % MCV 92 (80-97) fL MCH 31 (27-31) pg MCHC 34 (31-36) g/dl RDW 13 (10.5-15) % Plt Count 270 (150-450) 10^3/ul MPV 8.8 (7.4-10.4) um3 Neut % (Auto) 70.4 (38-83) % Lymph % (Auto) 18.5 L (25-47) % [place] % (Auto) 10.0 H (0-7) % Eos % (Auto) 0.6 (0-6) % Baso % (Auto) 0.5 (0-2) % Absolute Neuts (auto) 6.2 (1.5-7.7) 10^3/ul Absolute Lymphs (auto) 1.6 (1.0-4.8) 10^3/ul Absolute Monos (auto) 0.9 H (0-0.8) 10^3/ul Absolute Eos (auto) 0.1 (0-0.6) 10^3/ul Absolute Basos (auto) 0 (0-0.2) 10^3/ul Absolute Nucleated RBC 0 10^3/ul Nucleated RBC % 0 Sodium 138 L (139-145) mmol/L Potassium 3.0 L (3.5-5.0) mmol/L Chloride 98 L (101-111) mmol/L Carbon Dioxide 28 (22-32) mmol/L Anion Gap 12 H (2-11) mmol/L BUN 13 (6-24) mg/dL Creatinine 0.96 H (0.51-0.95) mg/dL Est GFR ( Amer) 86.1 (>60) Est GFR (Non-Af Amer) 66.9 (>60) BUN/Creatinine Ratio 13.5 (8-20) Glucose 77 (70-100) mg/dL Calcium 9.1 (8.6-10.3) mg/dL Total Bilirubin 0.40 (0.2-1.0) mg/dL AST 18 (13-39) U/L ALT 9 (7-52) U/L Alkaline Phosphatase 55 (34-104) U/L Total Protein 7.3 (6.4-8.9) g/dL Albumin 4.1 (3.2-5.2) g/dL Globulin 3.2 (2-4) g/dL Albumin/Globulin Ratio 1.3 (1-3) Beta HCG, Quant < 0.60 mIU/mL Urine Color Straw Urine Appearance Clear Urine pH 7.0 (5-9) Ur Specific [place] 1.003 L (1.010-1.030) Urine Protein Negative (Negative) Urine Ketones Negative (Negative) Urine Blood 1+ A (Negative) Urine Nitrate Negative (Negative) Urine Bilirubin Negative (Negative) Urine Urobilinogen Negative (Negative) Ur Leukocyte Esterase Negative (Negative) Urine WBC (Auto) Trace(0-5/hpf) (Absent) Urine RBC (Auto) Trace(0-2/hpf) (Absent) Ur Squamous Epith Cells Present A (Absent) Urine Bacteria Absent (Absent) Urine Glucose Negative (Negative) Result Diagrams: 11/02/17 13:05 11/02/17 13:05 Lab Statement: Any lab studies that have been ordered have been reviewed, and results considered in the medical decision making process. Back Pain Course/Dx - Course Course Of Treatment: Patient presents emergency department for right flank pain and vomiting. IV fluids were started and she was given a dose of IV morphine and Zofran. She had Toradol prior to arrival. At work and CT scan were obtained. Urinalysis shows trace blood without signs of infection. Blood work is unremarkable including negative . Abd/pelvis CT w/o:IMPRESSION: There appears to be chronic right hydronephrosis noted however the right renal. pelvis appears to be decompressed. The hydronephrosis appears to be similar to that seen. on 06/15/2017 and 03/25/2016, reading per radiology. On reexamination patient states her pain is starting to return. I did speak with on-call urology, Dr. Alberts, who recommends conservative management of patients. He will see her in the office. Certainly she may need revisional surgery from prior procedures. This was discussed with patient and she is comfortable with this plan. A few days of Percocet were prescribed as well as Zofran. ISTOP was queried and no red flags noted. Patient to return to the ear symptoms change or worsen. To call the urology office tomorrow for an appointment. - Diagnoses Differential Diagnosis/HQI/PQRI: Positive: Other - UTI, appendicitis, ovarian cyst, , pyelonephritis, urolithiasis, hydronephrosis. Provider Diagnoses: Hydronephrosis, Flank pain Discharge - Sign-Out/Discharge Documenting (check all that apply): Discharge - Discharge Plan Condition: Good Disposition: HOME Prescriptions: Ondansetron TAB* [Zofran 4 MG Tab*] 4 mg PO Q6H PRN #12 tab PRN Reason: Nausea oxyCODONE/Acetamin 5/325 MG* [Percocet 5/325 TAB*] 1 tab PO Q6H PRN 3 Days #12 tab MDD 4 tablets PRN Reason: Pain Patient Education Materials: Hydronephrosis (ED) Referrals: Ericka Hobson NP [Primary Care Provider] - Gómez Alberts MD [Medical Doctor] - Additional Instructions: Call the urology office today to schedule an appointment Take medication as directed Return to ER if symptoms change or worsen - Billing Disposition and Condition Condition: GOOD Disposition: HOME
== END 2017-11-02 15:26 | disposition home or self-care (01) ==
LOC: ED 10:53
DX: N13.30 Unspecified hydronephrosis (principal); R10.10 Upper abdominal pain, unspecified; J45.909 Unspecified asthma, uncomplicated; Z87.442 Personal history of urinary calculi
CPT/HCPCS: 36415; 74176; 80053; 81003; 81015; 84702; 85025; 87086; 96360; 96374; 96375; 99283; A9270-GY; J2270; J2405

== ENCOUNTER 2017-12-14 19:57 | Emergency (ER) | payer BC ==
[2017-12-14 20:13] VITALS: BP 138/91
[2017-12-14] MEDS ORDERED: Ondansetron ODT TAB* 4 MG PO ONE ×2 (20:55→21:18)
[2017-12-14] MEDS ORDERED: Ciprofloxacin TAB* 500 MG PO ONE ×2 (21:16→21:17)
--- NOTE | 2017-12-14 21:29 | UC ---
Alma Garnica Emily, scribed for Axel Moreno MD on 12/14/17 at 2053 . Complaint Female HPI - HPI Summary HPI Summary: This patient is a 32 year old F presenting to urgent care with a chief complaint of irritated nephrostomy tube that began 3 days ago. The patient rates the pain 4/10 in severity. Symptoms aggravated by nothing. Symptoms alleviated by nothing. Patient reports nausea and vomiting. Pt denies fever and chills. Pt brought in her old bandages and reports a significant amount of pus. Pt reports getting her first nephrostomy tube on 11/12/2017 in [place]. Pt reports the tube fell out when she got into her car one week ago and got a new tube on 12/08/2017. Pt has had a little bit of blood since the new tube was placed. Medications reviewed. Allergies reviewed. - History Of Current Complaint Chief Complaint: UCGU Stated Complaint: IRRITATION AROUND NEPHROSTOMY TUBE Time Seen by Provider: 12/14/17 20:42 Hx Obtained From: Patient Hx Last Menstrual Period: 3 weeks ?: No Onset/Duration: Sudden Onset, Lasting Days, Still Present Timing: Constant Severity Initially: Moderate Severity Currently: Moderate Pain Intensity: 4 Pain Scale Used: 0-10 Numeric Aggravating Factor(s): Nothing Alleviating Factor(s): Nothing - Allergies/Home Medications Allergies/Adverse Reactions: Allergies Allergy/AdvReac Type Severity Reaction Status Date / Time dihydroergotamine Allergy See Comment Verified 12/14/17 20:14 hydromorphone [From Dilaudid] Allergy See Comment Verified 12/14/17 20:14 neomycin Allergy Swelling Verified 12/14/17 20:14 shellfish derived Allergy Anaphylatic Verified 12/14/17 20:14 Shock tramadol Allergy Hallucinati Verified 12/14/17 20:14 ons NSAIDS (Non-Steroidal AdvReac GI Upset Verified 12/14/17 20:14 Anti-Inflamma DHE Allergy UNABLE TO Uncoded 12/14/17 20:14 SWALLOW molds Allergy Congestion Uncoded 12/14/17 20:14 Home Medications: Home Medications Lansoprazole CAP (NF) [Prevacid CAP (NF)] 12/14/17 [History] oxyCODONE TAB* [Roxycodone TAB 5 mg*] 5 mg PO Q4H PRN 12/14/17 [History Confirmed 12/14/17] PMH/Surg Hx/FS Hx/Imm Hx Previously Healthy: No Respiratory History: Asthma GI/ History: Renal Disease Other History Of: Negative For: HIV, Hepatitis B, Hepatitis C, Anticoagulant Therapy - Surgical History Surgical History: Yes Surgery Procedure, Year, and Place: UPPER PELVIC GRAFT- AGE 4. Nephrostomy tube. SCAR TISSUE REMOVED- AGE 25 - Family History Known Family History: Positive: Hypertension, Diabetes - Social History Occupation: Employed Full-time Lives: Alone Alcohol Use: Rare Substance Use Type: Marijuana Substance Use Comment - Amount & Last Used: rarely Smoking Status (MU): Never Smoked Tobacco - Immunization History Most Recent Tetanus Shot: UTD Review of Systems Constitutional: Other - Negative fever and chills Gastrointestinal: Vomiting, Nausea Genitourinary: Other - Irritated nephrostomy tube All Other Systems Reviewed And Are Negative: Yes Physical Exam - Summary Physical Exam Summary: General: well-appearing, no pain distress Skin: warm, color reflects adequate perfusion, dry Head: normal Eyes: EOMI, CAPO ENT: normal Neck: supple, nontender Respiratory: CTA, breath sounds present Cardiovascular: RRR Abdomen: soft, nontender. Nephrostomy tube in place R flank. There is no drainage from the site. Mild erythema in a nephrostomy tube pozo and tape distribution. Bowel: present Musculoskeletal: normal, strength/ROM intact Neurological: sensory/motor intact, A&O x3 Psychological: affect/mood appropriate Triage Information Reviewed: Yes Vital Signs: Initial Vital Signs Temp 99.0 F 12/14/17 20:05 Pulse 104 12/14/17 20:05 Resp 18 12/14/17 20:05 BP 138/91 12/14/17 20:05 Pulse Ox 99 12/14/17 20:05 Vital Signs Reviewed: Yes Complaint Female Dx - Course Course Of Treatment: NO DRAINAGE SEEN WHEN NEPHROSTOMY TUBE POZO REPLACED. CX TAKEN FROM THE DRESSING THAT WAS TAKEN OFF JPTA. WILL CONTINUE CIPRO. AFEBRILE IN CLINIC. NEPHROSTOMY URINE CX TO BE OBTAINED AND SENT. CALL [facility] IN THE AM FOR F/U. GET RECHECKED IN ED SOONER IF WORSE. - Differential Dx/Diagnosis Provider Diagnoses: PAIN AND DRAINAGE RIGHT NEPHROSTOMY TUBE SITE Discharge - Sign-Out/Discharge Documenting (check all that apply): Discharge/Admit/Transfer - Discharge Plan Condition: Stable Disposition: HOME Prescriptions: Ciprofloxacin TAB* [Cipro 500 MG TAB*] 500 mg PO BID #20 tab Ondansetron ODT TAB* [Zofran 4 MG Odt TAB*] 4 mg PO Q6H PRN #10 tab.odt PRN Reason: Nausea oxyCODONE TAB* [Roxycodone TAB 5 mg*] 5 mg PO Q4H PRN #20 tab MDD 6 PRN Reason: Pain Forms: *Work Release Referrals: Ericka Hobson NP [Primary Care Provider] - Gómez Alberts MD [Medical Doctor] - Additional Instructions: FOLLOW UP WITH YOUR UROLOGIST. CALL TOMORROW MORNING TO ARRANGE FOLLOW UP FOR THE DRAINAGE AND PAIN AT YOUR NEPHROSTOMY TUBE SITE. GET RECHECKED FOR ANY WORSENING OF YOUR CONDITION; PAIN, FEVER, YOU FEEL ILL OR QUESTIONS OR CONCERNS. - Billing Disposition and Condition Condition: STABLE Disposition: HOME The documentation as recorded by the Alma jimenez Emily accurately reflects the service I personally performed and the decisions made by me, Axel Moreno MD.
== END 2017-12-14 22:00 | disposition home or self-care (01) ==
LOC: UCEAST 19:57
DX: N99.528 Other complication of incontinent external stoma of urinary tract (principal); Z88.8 Allergy status to other drugs, medicaments and biological substances; Z88.6 Allergy status to analgesic agent; Z88.1 Allergy status to other antibiotic agents; Z88.5 Allergy status to narcotic agent; Z91.013 Allergy to seafood
CPT/HCPCS: 87070; 87086; 87205; 99212; A9270-GY; G0463

== ENCOUNTER 2018-02-09 12:20 | Emergency (ER) | payer BC ==
[2018-02-09 12:39] VITALS: BP 119/95
--- NOTE | 2018-02-09 12:55 | ED ---
GI/ HPI - HPI Summary HPI Summary: 32 female presents with abdominal pain since yesterday. She states it located in her right lower quadrant and into her flank. States it started right lower quadrant. She has history of nephrostomy tube placement and urethral stent. She had her urethral stent place on the 6. She is followed by urology at [facility], [place]. She denies any dysuria urgency or frequency. No hematuria. She states that she feels warm. She states that she called [facility] [place] they told her to turn her pump on. She states after turning her pump on it change the quality pain but not location. States she's been nauseous and has been vomiting. She admits to diarrhea. She's never had this pain before. She has had surgery for stent placement and nephrostomy but no other abdominal surgeries. She has seen dr bravo before for this before she was referred to [facility], [place]. 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 She still has normal kidney function per patient. - History of Current Complaint Chief Complaint: UCGU Time Seen by Provider: 02/09/18 12:45 Stated Complaint: ABDOMINAL PAIN Hx Last Menstrual Period: 02/02/18 Pain Intensity: 8 - Allergy/Home Medications Allergies/Adverse Reactions: Allergies Allergy/AdvReac Type Severity Reaction Status Date / Time dihydroergotamine Allergy See Comment Verified 02/09/18 12:41 hydromorphone [From Dilaudid] Allergy See Comment Verified 02/09/18 12:41 neomycin Allergy Swelling Verified 02/09/18 12:41 shellfish derived Allergy Anaphylatic Verified 02/09/18 12:41 Shock tramadol Allergy Hallucinati Verified 02/09/18 12:41 ons NSAIDS (Non-Steroidal AdvReac GI Upset Verified 02/09/18 12:41 Anti-Inflamma DHE Allergy UNABLE TO Uncoded 02/09/18 12:41 SWALLOW molds Allergy Congestion Uncoded 02/09/18 12:41 Home Medications: Home Medications Oxybutynin Chloride [Ditropan Xl] 5 mg PO TID 02/09/18 [History Confirmed ] Phenazopyridine 200 mg (NF) [Pyridium 200 MG tab *] 1 tab PO ONCE PRN 02/09/18 [ History Confirmed 02/09/18] Tamsulosin HCl 1 tab PO DAILY 02/09/18 [History Confirmed 02/09/18] PMH/Surg Hx/FS Hx/Imm Hx Endocrine/Hematology History: Reports: Other Endocrine/Hematological Disorders - low K+, low Mg, enlarged right kidney Denies: Hx Anticoagulant Therapy, Hx Diabetes, Hx Thyroid Disease Cardiovascular History: Denies: Hx Congestive Heart Failure, Hx Deep Vein Thrombosis, Hx Hypertension , Hx Myocardial Infarction, Hx Pacemaker/ICD Respiratory History: Reports: Hx Asthma - asthmatic bronchitis Denies: Hx Chronic Obstructive Pulmonary Disease (COPD), Hx Lung Cancer, Hx Pneumonia, Hx Pulmonary Embolism GI History: Denies: Hx Gall Bladder Disease, Hx Gastrointestinal Bleed, Hx Ulcer, Hx Urosepsis History: Reports: Hx Kidney Stones, Hx Renal Disease - MAY HAVE SOME RENAL INSUFF WAS TOLD BY PMD NOT TO HAVE NSAIDS Neurological History: Reports: Hx Migraine Denies: Hx Dementia, Hx Seizures, Hx Transient Ischemic Attacks (TIA) Psychiatric History: Reports: Hx Depression Denies: Hx Anxiety, Hx Schizophrenia, Hx Bipolar Disorder - Surgical History Surgery Procedure, Year, and Place: UPPER PELVIC GRAFT- AGE 4. Nephrostomy tube. SCAR TISSUE REMOVED- AGE 25 - Immunization History Date of Tetanus Vaccine: 03/2011 Date of Influenza Vaccine: 2016 Infectious Disease History: No Infectious Disease History: Reports: History Other Infectious Disease - Herpes Denies: Traveled Outside the [place] in Last 30 Days - Family History Known Family History: Positive: Hypertension, Diabetes - Social History Alcohol Use: Rare Hx Substance Use: No Substance Use Type: Reports: Marijuana Substance Use Comment - Amount & Last Used: rarely Hx Tobacco Use: No Smoking Status (MU): Never Smoked Tobacco Review of Systems Negative: Fever Negative: Chest Pain Negative: Shortness Of Breath Positive: Abdominal Pain, Vomiting, Diarrhea, Nausea Positive: flank pain All Other Systems Reviewed And Are Negative: Yes Physical Exam Triage Information Reviewed: Yes Vital Signs On Initial Exam: Initial Vitals Temp Pulse Resp BP Pulse Ox 98.7 F 103 22 119/95 97 02/09/18 12:35 02/09/18 12:35 02/09/18 12:35 02/09/18 12:35 02/09/18 12:35 Vital Signs Reviewed: Yes Appearance: Positive: Pain Distress Skin: Positive: Warm, Dry Head/Face: Positive: Normal Head/Face Inspection Eyes: Positive: Normal, Conjunctiva Clear ENT: Positive: Pharynx normal Respiratory/Lung Sounds: Positive: Clear to Auscultation, Breath Sounds Present Cardiovascular: Positive: Normal, RRR Abdomen Description: Positive: Soft, CVA Tenderness (R), McBurney's Point Tenderness, Other: - tenderness RLQ, pos obturator, nephrostomy tube in place right side Bowel Sounds: Positive: Present Musculoskeletal: Positive: Normal Neurological: Positive: Normal Psychiatric: Positive: Normal Diagnostics - Vital Signs Vital Signs Temp Pulse Resp BP Pulse Ox 02/09/18 12:35 98.7 F 103 22 119/95 97 - Laboratory Lab Statement: Any lab studies that have been ordered have been reviewed, and results considered in the medical decision making process. GIGU Course/Dx - Course Course Of Treatment: 32 female presents with abdominal pain since yesterday. She states it located in her right lower quadrant and into her flank. States it started right lower quadrant. She has history of nephrostomy tube placement and urethral stent. She had her urethral stent place on the 6. She is followed by urology at [facility], [place]. She denies any dysuria urgency or frequency. No hematuria. She states that she feels warm. She states that she called [facility] [place] they told her to turn her pump on. She states after turning her pump on it change the quality pain but not location. States she's been nauseous and has been vomiting. She admits to diarrhea. She's never had this pain before. She has had surgery for stent placement and nephrostomy but no other abdominal surgeries. She has seen dr bravo before for this before she was referred to [facility], [place]. 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 She still has normal kidney function per patient. on exam has tenderness in RLQ at mcburney point and of right flank. has nephrostomy tube in place. patient in pain distress. discussed with patient that should go to the ED for further evualation so can get lab work as diff include appendicitis, urethral obstruction, pyelo. gave pain medication before left with mom to go to the ED. - Diagnoses Differential Diagnoses - Female: Appendicitis, Pyelonephritis, Urinary Tract Infection, Ureteral Calculi Provider Diagnoses: Abdominal pain Discharge - Sign-Out/Discharge Documenting (check all that apply): Patient Departure - Discharge Plan Condition: Good Disposition: HOME-RECOMMEND TO ED Patient Education Materials: Acute Abdominal Pain (ED) Referrals: Jazlyn,Ericka, SEED SPECIALIST [Primary Care Provider] - Additional Instructions: It is recommended that you go to the ED for your symptoms Per institutional requirements, I have reviewed the chart, however, I was not consulted specifically or made aware of this patient by the above midlevel provider. I did not personally evaluate, interact with , or disposition this patient. - Billing Disposition and Condition Condition: GOOD Disposition: Home-Recommend to ED
[2018-02-09] MEDS ORDERED: Ondansetron ODT TAB* 4 MG PO ONE (13:00)
[2018-02-09] MEDS ORDERED: Morphine VIAL* 10 MG/ML 1 ML VIAL IM ONE (13:00)
== END 2018-02-09 13:21 | disposition home health service (06) ==
LOC: UCEAST 12:20
DX: R10.31 Right lower quadrant pain (principal); R19.7 Diarrhea, unspecified; N28.81 Hypertrophy of kidney; R11.2 Nausea with vomiting, unspecified; Q62.39 Other obstructive defects of renal pelvis and ureter; J45.909 Unspecified asthma, uncomplicated; Z88.8 Allergy status to other drugs, medicaments and biological substances; Z88.5 Allergy status to narcotic agent; Z91.013 Allergy to seafood; Z88.6 Allergy status to analgesic agent; Z93.6 Other artificial openings of urinary tract status; Z88.1 Allergy status to other antibiotic agents; Z91.09 Other allergy status, other than to drugs and biological substances; Z96.0 Presence of urogenital implants
CPT/HCPCS: 96372; 99212; A9270-GY; G0463; J2270

== ENCOUNTER 2018-02-09 13:57 | Emergency (ER) | payer BC ==
[2018-02-09] MEDS ORDERED: NS 0.9% 1000 ML* 1,000 ML IV ONE ×2 (16:38→19:12)
--- NOTE | 2018-02-09 16:56 | ED ---
Abdominal Pain/Female - HPI Summary HPI Summary: This is scribe Chapo Jordana documenting for attending Chaim Caruso MD. Patient is a 32 y/o F w/ c/o RLQ abdominal pain onsetting yesterday. 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 She reports that her bag was closed for a week and a half to check for proper function of the bag. At the time, the bag function was good and there was no pain. Yesterday, after pain onset, Pt had called her urologist who told her to open the valve of her nephrostomy tube. She did so, but pain still remained. Pain is noted to be different from that caused by previous kidney problems and patient described current pain as stabbing. Patient went to walk- in clinic and was sent to ED. Pain has progressively worsened, vomiting, nausea , and diarrhea are noted. She also reports some right pelvic and flank pain. Patient notes she feels feverish. The patient's last menstrual cycle was 2 weeks ago and she denies any vaginal discharge or bleeding. On triage, pain is rated 7/10, noted to radiate to the right side of the lower back, and it is noted that certain movements aggravate Sx, with nothing alleviating symptoms. Hx of kidney failure is noted. Home medications and allergies are noted. - History of Current Complaint Chief Complaint: EDAbdPain Stated Complaint: ABD PAIN-SENT BY CC Time Seen by Provider: 02/09/18 16:31 Hx Obtained From: Patient Hx Last Menstrual Period: 02/02/18 Onset/Duration: Lasting Days - yesterday, Worse Since Timing: Constant Severity Initially: Mild Severity Currently: Moderate Pain Intensity: 7 Pain Scale Used: 0-10 Numeric - 7/10 Location: Discrete At: RLQ, Flank - right side flank, Other - right sided lower back pain, right sided pelvic pain Radiates: Yes Radiates to: Back - right side of back Aggravating Factor(s): Movement Alleviating Factor(s): Nothing Associated Signs and Symptoms: Positive: Fever, Nausea, Vomiting, Diarrhea. Negative: Vaginal Bleeding, Vaginal Discharge Allergies/Adverse Reactions: Allergies Allergy/AdvReac Type Severity Reaction Status Date / Time dihydroergotamine Allergy See Comment Verified 02/09/18 15:56 hydromorphone [From Dilaudid] Allergy See Comment Verified 02/09/18 15:56 neomycin Allergy Swelling Verified 02/09/18 15:56 shellfish derived Allergy Anaphylatic Verified 02/09/18 15:56 Shock tramadol Allergy Hallucinati Verified 02/09/18 15:56 ons NSAIDS (Non-Steroidal AdvReac GI Upset Verified 02/09/18 15:56 Anti-Inflamma DHE Allergy UNABLE TO Uncoded 02/09/18 12:41 SWALLOW molds Allergy Congestion Uncoded 02/09/18 12:41 PMH/Surg Hx/FS Hx/Imm Hx Endocrine/Hematology History: Reports: Other Endocrine/Hematological Disorders - low K+, low Mg, enlarged right kidney Denies: Hx Anticoagulant Therapy, Hx Diabetes, Hx Thyroid Disease Cardiovascular History: Denies: Hx Congestive Heart Failure, Hx Deep Vein Thrombosis, Hx Hypertension , Hx Myocardial Infarction, Hx Pacemaker/ICD Respiratory History: Reports: Hx Asthma - asthmatic bronchitis Denies: Hx Chronic Obstructive Pulmonary Disease (COPD), Hx Lung Cancer, Hx Pneumonia, Hx Pulmonary Embolism GI History: Denies: Hx Gall Bladder Disease, Hx Gastrointestinal Bleed, Hx Ulcer, Hx Urosepsis History: Reports: Hx Kidney Stones, Hx Renal Disease - MAY HAVE SOME RENAL INSUFF WAS TOLD BY PMD NOT TO HAVE NSAIDS Neurological History: Reports: Hx Migraine Denies: Hx Dementia, Hx Seizures, Hx Transient Ischemic Attacks (TIA) Psychiatric History: Reports: Hx Depression Denies: Hx Anxiety, Hx Schizophrenia, Hx Bipolar Disorder - Surgical History Surgery Procedure, Year, and Place: UPPER PELVIC GRAFT- AGE 4. Nephrostomy tube. SCAR TISSUE REMOVED- AGE 25 - Immunization History Date of Tetanus Vaccine: 03/2011 Date of Influenza Vaccine: 2016 Infectious Disease History: No Infectious Disease History: Reports: History Other Infectious Disease - Herpes Denies: Traveled Outside the [place] in Last 30 Days - Family History Known Family History: Positive: Hypertension, Diabetes - Social History Alcohol Use: Rare Hx Substance Use: No Substance Use Type: Reports: None Substance Use Comment - Amount & Last Used: rarely Hx Tobacco Use: No Smoking Status (MU): Never Smoked Tobacco Review of Systems Positive: Fever Positive: Abdominal Pain - RLQ abdominal pain, Vomiting, Diarrhea, Nausea Positive: flank pain - right sided , pain - right pelvic pain, other - NEGATIVE : vaginal discharge/bleeding Positive: Other - right sided lower back pain All Other Systems Reviewed And Are Negative: Yes Physical Exam - Summary Physical Exam Summary: VITAL SIGNS: Reviewed. GENERAL: Patient is a well-developed and nourished female who is lying comfortable in the stretcher. Patient is not in any acute respiratory distress. HEAD AND FACE: Normocephalic and atraumatic. EYES: PERRLA, EOMI x 2, No injected conjunctiva. EARS: Hearing grossly intact. Ear canals and tympanic membranes are WNL. MOUTH: Oropharynx within normal limits. NECK: Supple, trachea is midline, no adenopathy, no JVD. CHEST: Symmetric, no tenderness at palpation LUNGS: Clear to auscultation bilaterally. No wheezing or crackles. CVS: RRR, S1 and S2 present, no murmurs or gallops appreciated. ABDOMEN: Soft, RLQ tenderness. No signs of distention. Positive bowel sounds. No rebound no guarding, and no masses palpated. No abdominal bruit or pulsations. Right nephrostomy tube is noted to be present. EXTREMITIES: FROM in all major joints, no edema, no cyanosis or clubbing. NEURO: Alert and oriented x 3. No acute neurological deficits. Speech is normal. SKIN: Dry and warm Triage Information Reviewed: Yes Vital Signs On Initial Exam: Initial Vitals Temp Pulse Resp BP Pulse Ox 98.8 F 98 20 123/87 94 02/09/18 14:23 02/09/18 14:23 02/09/18 14:23 02/09/18 14:23 02/09/18 14:23 Vital Signs Reviewed: Yes Diagnostics - Vital Signs Vital Signs Temp Pulse Resp BP Pulse Ox 02/09/18 15:27 98.2 F 101 18 131/87 02/09/18 14:23 98.8 F 98 20 123/87 94 - Laboratory Result Diagrams: 02/09/18 16:54 02/09/18 16:54 Lab Statement: Any lab studies that have been ordered have been reviewed, and results considered in the medical decision making process. - CT CT abd/pel CT Interpretation: No Acute Changes CT Interpretation Completed By: Radiologist - No evidence for acute finding. Chronic severe right caliectasis. There is a percutaneous nephrostomy tube and ureteral stent in place. This report was reviewed by ED physician. Re-Evaluation - Re-Evaluation First Eval Re-Evaluation Time: 20:20 Comment: Discussed labs and tests. Discussed plan of discharge and follow up from [facility] urolog. Patient is agreeable with plan. Abdominal Pain Fem Course/Dx - Course Course Of Treatment: This patient is a 32-year-old female who presents to the emergency department with a chief complaint of having right lower abdominal pain. The patient reports that she has history of congenital UPJ obstruction for which she has had surgery and last she had a nephrostomy tube in place as well as and stent. She was doing well until yesterday when she developed pain. The patient denies any fever or chills positive nausea no vomiting. The pain is 10 out of 10. The patient has menstrual cycle was 2 weeks ago and she denies any vaginal discharge or bleeding. Physical exam she has a right lower quadrant tenderness. There is no rebound no guarding. Blood test results without any significant abnormality except for potassium level of 2.1 magnesium 1.4. The patient was given potassium and magnesium by mouth. CRP 15.6. Urinalysis shows 1+ ketones 1+ blood, leukocyte 2+ the result of to RBCs , and positive squamous epithelial cells. Abdominopelvic CT impression: No evidence for acute findings. Chronic severe right caliectasis. There is a percutaneous nephrostomy tube and urethral stent in place. In the ED course the patient was given IV fluids, Zofran for nausea vomiting a morphine for pain. After these medications the patient is feeling better. I discussed my physical exam and findings with Dr. Carlson who is covering from Dr. Cook the [facility] urologist for this patient. Since all the test results are within normal limits he recommends for the patient to be discharged home and they will contact the patient tomorrow for an outpatient visit. I discussed the findings test results and plan with the patient and patients family members and they agree. At this time the patient is hemodynamically stable alert and oriented 3. - Diagnoses Provider Diagnoses: Lower abdominal pain - Provider Notifications Discussed Care Of Patient With: stacy carlson Time Discussed With Above Provider: 20:10 Instructed by Provider To: Other - Dr. Carlson from [facility] was consulted at 20:10. They recommend discharge and their office will call the patient tomorrow to set up a follow up appointment. Discharge - Sign-Out/Discharge Documenting (check all that apply): Patient Departure - discharge - Discharge Plan Condition: Stable Disposition: HOME Patient Education Materials: Acute Abdominal Pain (ED) Referrals: [facility] [Provider Group] - 1 Day Additional Instructions: Return to ED for new or worsening symptoms. [facility] Urology office will call tomorrow to set up an appointment.
[2018-02-09 17:08] LABS: ABS Basophils 0 10^3/ul (0-0.2); ABS Eosinophils 0 10^3/ul (0-0.6); ABS Lymphocytes 1.7 10^3/ul (1.0-4.8); ABS Monocytes 0.8 10^3/ul (0-0.8); ABS Neutrophils 6.4 10^3/ul (1.5-7.7); ABS Nucleated RBC 0 10^3/ul; Eosinophil % 0.4 % (0-6); Hematocrit 40 % (35-47); Hemoglobin 13.6 g/dl (12.0-16.0); Lymphocyte % 19.2 % (25-47); Mean Corpuscular HGB Conc 34 g/dl (31-36); Mean Corpuscular Hemoglobin 31 pg (27-31); Mean Corpuscular Volume 91 fL (80-97); Mean Platelet Volume 7.7 um3 (7.4-10.4); Nucleated Red Blood Cells % 0; Platelet Count 291 10^3/ul (150-450); Red Blood Count 4.42 10^6/ul (4.00-5.40); Red Cell Distribution Width 12 % (10.5-15)
[2018-02-09 17:21] LABS: Urine Appearance Cloudy; Urine Blood 1+ (Negative); Urine Color Yellow; Urine Ketones 1+ (Negative); Urine Protein Negative (Negative); Urine Red Blood Cell 1+(3-5/hpf) (Absent); Urine Specific Gravity 1.012 (1.010-1.030); Urine Urobilinogen Negative (Negative); Urine White Blood Cell 2+(11-20/hpf) (Absent)
[2018-02-09 17:22] LABS: EGFR Non-African American 71.2 (>60)
[2018-02-09] MEDS ORDERED: Ondansetron INJ* 2 MG/ML VIAL ONE (17:35)
[2018-02-09] MEDS ORDERED: Ondansetron INJ* 2 MG/ML VIAL IV ONE (17:36)
[2018-02-09] MEDS ORDERED: Morphine VIAL* 4 MG/ML VIAL (1 ml vial) IV ONE ×2 (18:07→20:30)
[2018-02-09] MEDS ORDERED: Morphine INJ* 2 MG/ML 1 ML SYRINGE (TWO MG - NEW SYRINGE VERSION) ONE (18:12)
[2018-02-09] MEDS ORDERED: Iodixanol* (CONTRAST) 320 MG/ML 100 ML SDV IV ONE (18:16)
[2018-02-09] MEDS ORDERED: Magnesium Sulfate 1 GM IV* 1 GM/100 ML BAG IV ONE (18:58)
[2018-02-09] MEDS ORDERED: Potassium Chlor TAB* 20 MEQ TAB.ER PO ONE (18:59)
--- NOTE | 2018-02-09 19:36 | RAD ---
INDICATION: Right lower quadrant abdominal pain. COMPARISON: Comparison is made with a prior CT of the abdomen and pelvis from June 15, [address] of the abdomen and pelvis from November 02, 2017. TECHNIQUE: A CT scan of the abdomen and pelvis was performed with intravenous and with oral contrast following intravenous injection of 99 ml of Visipaque 320 nonionic contrast. Contiguous axial sections were obtained from the lung bases through the symphysis pubis. Images were reconstructed in the coronal and sagittal planes. FINDINGS: The lung bases are clear. No pleural effusion is present. The liver and spleen are normal in size. There is a very small 3 mm hypodense lesion within the right hepatic lobe which is unchanged from the prior exams possibly representing a small cyst although too small to characterize by CT. No other focal abnormalities are seen. No calcified gallstones are noted. The pancreas appears to be within normal limits. The adrenal glands and left kidney appear to be within normal limits. The right kidney is enlarged. There is marked dilatation of the renal calyces most consistent with chronic severe caliectasis which appears unchanged. The renal pelvis and ureter do not appear distended. There is a percutaneous nephrostomy tube on the right side and a right ureteral stent catheter present which appear to be in normal position. The aorta is normal in caliber and demonstrates homogeneous contrast opacification. No significant enlarged retroperitoneal lymph nodes are seen. The stomach, small and large bowel appear nondistended. The appendix is within normal limits. Contrast is seen throughout the colon. There is no evidence for diverticulitis or colitis. The uterus is anteverted and normal in size. No free intraperitoneal air or fluid is seen. No significant focal osseous abnormality is seen. IMPRESSION: 1. NO EVIDENCE FOR ACUTE FINDING. 2. CHRONIC SEVERE RIGHT CALIECTASIS. THERE IS A PERCUTANEOUS NEPHROSTOMY TUBE AND URETERAL STENT IN PLACE.
[2018-02-09 21:44] VITALS: BP 125/75
== END 2018-02-09 21:42 | disposition home or self-care (01) ==
LOC: ED 13:57
DX: R10.31 Right lower quadrant pain (principal); M54.5 Low back pain; R50.9 Fever, unspecified; R11.2 Nausea with vomiting, unspecified; R19.7 Diarrhea, unspecified; N28.89 Other specified disorders of kidney and ureter; Z88.6 Allergy status to analgesic agent; Z88.5 Allergy status to narcotic agent; Z91.013 Allergy to seafood; Z82.49 Family history of ischemic heart disease and other diseases of the circulatory system; Z83.3 Family history of diabetes mellitus
CPT/HCPCS: 36415; 74177; 80053; 81003; 81015; 82550; 83605; 83690; 83735; 84702; 85025; 86140; 87086; 96365; 96375; 96376; 99284; A9270-GY; J2270; J2405; J3475; Q9967

== ENCOUNTER 2018-04-27 14:33 | Emergency (ER) | payer BC ==
[2018-04-27 15:09] VITALS: BP 118/82
--- NOTE | 2018-04-27 15:29 | UC ---
Complaint Female HPI - HPI Summary HPI Summary: 3 days of R CVAT/back pain w/ chills, aches, n/v. Pain radiates to RLQ and feels her temperature is elevated but denies actual fever. Has tried ibu, tylenol w/ no relief. Pain is constant, nothing makes it better/worse. Of note Uretal stent mid Mar. Sees Dr. Cook/[facility] hosp. - History Of Current Complaint Chief Complaint: UCGU Stated Complaint: LOWER BACK PAIN Time Seen by Provider: 04/27/18 15:17 Hx Obtained From: Patient Hx Last Menstrual Period: 03/29/18 ?: No - bcp Onset/Duration: Sudden Onset Timing: Constant Severity Currently: Moderate Pain Intensity: 8 Character: Dull Aggravating Factor(s): Movement - Allergies/Home Medications Allergies/Adverse Reactions: Allergies Allergy/AdvReac Type Severity Reaction Status Date / Time dihydroergotamine Allergy See Comment Verified 04/27/18 15:09 hydromorphone [From Dilaudid] Allergy See Comment Verified 04/27/18 15:09 neomycin Allergy Swelling Verified 04/27/18 15:09 shellfish derived Allergy Anaphylatic Verified 04/27/18 15:09 Shock tramadol Allergy Hallucinati Verified 04/27/18 15:09 ons NSAIDS (Non-Steroidal AdvReac GI Upset Verified 04/27/18 15:09 Anti-Inflamma DHE Allergy UNABLE TO Uncoded 04/27/18 15:09 SWALLOW molds Allergy Congestion Uncoded 04/27/18 15:09 PMH/Surg Hx/FS Hx/Imm Hx Previously Healthy: No GI/ History: Renal Disease - renal stenosis Psychological History: Depression Other History Of: Negative For: HIV, Hepatitis B, Hepatitis C, Anticoagulant Therapy - Surgical History Surgical History: Yes Surgery Procedure, Year, and Place: UPPER PELVIC GRAFT- AGE 4. Nephrostomy tube. SCAR TISSUE REMOVED- AGE 25 - Family History Known Family History: Positive: Hypertension, Diabetes - Social History Alcohol Use: Occasionally Substance Use Type: Marijuana Substance Use Comment - Amount & Last Used: rarely Smoking Status (MU): Never Smoked Tobacco - Immunization History Most Recent Tetanus Shot: UTD Review of Systems Constitutional: Chills Respiratory: Negative Cardiovascular: Negative Gastrointestinal: Vomiting, Nausea Genitourinary: Dysuria, Other - r sided back pain All Other Systems Reviewed And Are Negative: Yes Physical Exam Triage Information Reviewed: Yes Appearance: Well-Appearing Vital Signs: Initial Vital Signs Temp 98.4 F 04/27/18 15:05 Pulse 92 04/27/18 15:05 Resp 20 04/27/18 15:05 BP 118/82 04/27/18 15:05 Pulse Ox 99 04/27/18 15:05 Vital Signs Reviewed: Yes Respiratory: Positive: Lungs clear, Normal breath sounds Cardiovascular Exam: Normal Abdomen Description: Positive: Nontender, Soft, CVA Tenderness (R) Neurological: Positive: Alert Complaint Female Dx - Course Course Of Treatment: R flank pain in a healthy pt w/ hx of renal stent in R ureter for stenosis in 03/2018. Has perishable fruit inspector on board. afebrile, good vitals, exam essentially unremarkable and UA showed + blood, no signs of infection. declined sti testing. offered imaging but given timing pt will simply call her perishable fruit inspector tomorrow to be evaluated. strongly recommended going to ED should anythign worsen. - Differential Dx/Diagnosis Differential Diagnosis/HQI/PQRI: Sexually Transmitted Disease, Urinary Tract Infection Provider Diagnoses: R flank pain Discharge - Sign-Out/Discharge Documenting (check all that apply): Patient Departure All imaging exams completed and their final reports reviewed: No Studies - Discharge Plan Condition: Stable Disposition: HOME Patient Education Materials: Flank Pain (ED) Forms: *Work Release Referrals: Ericka Hobson NP [Primary Care Provider] - Eagle Cook MD [Medical Doctor] - Additional Instructions: please f/u w/ Dr. Cook/[facility] nephrology tomorrow or if pain continues or new symptoms go to emergency room - Billing Disposition and Condition Condition: STABLE Disposition: Home - Attestation Statements Provider Attestation: I was available for consult. This patient was seen by the [facility]. The patient was not presented to, seen by, or examined by me. -Chaitanya
== END 2018-04-27 16:07 | disposition home or self-care (01) ==
LOC: UCEAST 14:33
DX: M54.5 Low back pain (principal); R10.31 Right lower quadrant pain; Z88.6 Allergy status to analgesic agent; Z88.3 Allergy status to other anti-infective agents; Z88.5 Allergy status to narcotic agent; Z91.013 Allergy to seafood
CPT/HCPCS: 81003; 84702; 99211; G0463

== ENCOUNTER 2018-05-06 13:59 | Emergency (ER) | payer BC ==
[2018-05-06 14:58] VITALS: BP 125/74
--- NOTE | 2018-05-06 15:05 | UC ---
Throat Pain/Nasal Nicholas HPI - HPI Summary HPI Summary: Patient has had a cold for the past 2 weeks, now has increased sinus pressure and drainage, pain in ears and sore throat, cough is non productive. no wheezing - History of Current Complaint Chief Complaint: UCRespiratory Stated Complaint: COUGH Time Seen by Provider: 05/06/18 14:57 Hx Obtained From: Patient Hx Last Menstrual Period: 04/28/18 ?: No Onset/Duration: Sudden Onset, Lasting Days Severity: Moderate Pain Intensity: 6 Associated Signs & Symptoms: Positive: Dysphagia, Sinus Discomfort, Nasal Discharge - Allergies/Home Medications Allergies/Adverse Reactions: Allergies Allergy/AdvReac Type Severity Reaction Status Date / Time dihydroergotamine Allergy See Comment Verified 05/06/18 14:49 hydromorphone [From Dilaudid] Allergy See Comment Verified 05/06/18 14:49 neomycin Allergy Swelling Verified 05/06/18 14:49 shellfish derived Allergy Anaphylatic Verified 05/06/18 14:49 Shock tramadol Allergy Hallucinati Verified 05/06/18 14:49 ons NSAIDS (Non-Steroidal AdvReac GI Upset Verified 05/06/18 14:49 Anti-Inflamma DHE Allergy UNABLE TO Uncoded 05/06/18 14:49 SWALLOW molds Allergy Congestion Uncoded 05/06/18 14:49 Home Medications: Home Medications Tamsulosin CAP* [Flomax CAP*] 0.4 mg PO BEDTIME 05/06/18 [History Confirmed ] PMH/Surg Hx/FS Hx/Imm Hx Previously Healthy: Yes Other History Of: Negative For: HIV, Hepatitis B, Hepatitis C, Anticoagulant Therapy - Surgical History Surgical History: Yes Surgery Procedure, Year, and Place: UPPER PELVIC GRAFT- AGE 4. Nephrostomy tube. SCAR TISSUE REMOVED- AGE 25 - Family History Known Family History: Positive: Hypertension, Diabetes - Social History Alcohol Use: Occasionally Substance Use Type: Marijuana Substance Use Comment - Amount & Last Used: rarely Smoking Status (MU): Never Smoked Tobacco - Immunization History Most Recent Tetanus Shot: UTD Review of Systems Constitutional: Fatigue Skin: Negative Eyes: Negative ENT: Sore Throat, Ear Ache, Nasal Discharge, Sinus Congestion, Sinus Pain/ Tenderness Respiratory: Cough Cardiovascular: Negative Gastrointestinal: Negative Genitourinary: Negative Motor: Negative Neurovascular: Negative Musculoskeletal: Negative Neurological: Headache Psychological: Negative Is Patient Immunocompromised?: No All Other Systems Reviewed And Are Negative: Yes Physical Exam Triage Information Reviewed: Yes Appearance: Well-Nourished, Ill-Appearing, Pain Distress Vital Signs: Initial Vital Signs Temp 98.6 F 05/06/18 14:51 Pulse 95 05/06/18 14:51 Resp 16 05/06/18 14:51 BP 125/74 05/06/18 14:51 Pulse Ox 99 05/06/18 14:51 Eye Exam: Normal ENT: Positive: Pharyngeal erythema, TM bulging, TM dull, Tonsillar exudate Dental Exam: Normal Neck exam: Normal Neck: Positive: Supple, Nontender, No Lymphadenopathy Respiratory Exam: Normal Respiratory: Positive: Chest non-tender Cardiovascular Exam: Normal Cardiovascular: Positive: RRR, No Murmur, Pulses Normal Abdominal Exam: Normal Abdomen Description: Positive: Nontender, No Organomegaly, Soft Bowel Sounds: Positive: Present Musculoskeletal Exam: Normal Neurological Exam: Normal Psychological Exam: Normal Skin Exam: Normal Throat Pain/Nasal Course/Dx - Course Course Of Treatment: hx obtained, exam performed ,meds reviewed, rapid strep performed, treaed for sinusitis - Differential Dx/Diagnosis Differential Diagnosis/HQI/PQRI: Influenza, Laryngitis, Otitis Media, Pharyngitis, Sinusitis, Tonsillitis, URI Provider Diagnoses: sinusitis Discharge - Sign-Out/Discharge Documenting (check all that apply): Patient Departure All imaging exams completed and their final reports reviewed: No Studies - Discharge Plan Condition: Stable Disposition: HOME Prescriptions: Amoxicillin PO (*) [Amoxicillin 875 MG (*)] 875 mg PO BID #20 tab Referrals: Ericka Hobson [facility] [Primary Care Provider] - Additional Instructions: 1. take the medication as prescribed. 2. get plenty of rest and increase fluid intake - Billing Disposition and Condition Condition: STABLE Disposition: Home
== END 2018-05-06 15:24 | disposition home or self-care (01) ==
LOC: UCCORT 13:59
DX: J32.9 Chronic sinusitis, unspecified (principal); F12.90 Cannabis use, unspecified, uncomplicated; Z93.6 Other artificial openings of urinary tract status; Z88.1 Allergy status to other antibiotic agents; Z88.6 Allergy status to analgesic agent; Z88.8 Allergy status to other drugs, medicaments and biological substances; Z91.013 Allergy to seafood; Z88.5 Allergy status to narcotic agent
CPT/HCPCS: 87651; 99211; G0463

== ENCOUNTER 2018-06-06 17:42 | Emergency (ER) | payer BC ==
--- NOTE | 2018-06-06 17:49 | UC ---
Skin Complaint HPI - HPI Summary HPI Summary: 32 yo female presents with rash to abdomen. She tells me that on 05/17 she had laparoscopic surgery to place a stent in her right ureter. Around 05/28 she noticed that around one of the incision sites she has mild itching and red tiny bumps. She saw her surgeon in f/u and was told that it was a reaction from the adhesive/dressing. Since that time the area has gotten larger and more itchy. She has applied benadryl cream and OTC hydrocortisone cream with no relief. Denies fever, chills, or drainage from the incision sites. - History of Current Complaint Time Seen by Provider: 06/06/18 17:48 Stated Complaint: RASH Hx Obtained From: Patient Hx Last Menstrual Period: 04/28/18 Onset/Duration: Sudden Onset Onset Severity: Mild Current Severity: Moderate Pain Intensity: 5 Pain Scale Used: 0-10 Numeric - Allergy/Home Medications Allergies/Adverse Reactions: Allergies Allergy/AdvReac Type Severity Reaction Status Date / Time dihydroergotamine Allergy See Comment Verified 06/06/18 17:56 hydromorphone [From Dilaudid] Allergy See Comment Verified 06/06/18 17:56 neomycin Allergy Swelling Verified 06/06/18 17:56 shellfish derived Allergy Anaphylatic Verified 06/06/18 17:56 Shock tramadol Allergy Hallucinati Verified 06/06/18 17:56 ons NSAIDS (Non-Steroidal AdvReac GI Upset Verified 06/06/18 17:56 Anti-Inflamma DHE Allergy UNABLE TO Uncoded 06/06/18 17:56 SWALLOW molds Allergy Congestion Uncoded 06/06/18 17:56 Home Medications: Home Medications Acetaminophen [Acetaminophen Extra Strength] 500 mg PO PRN 06/06/18 [History Confirmed 06/06/18] Cetirizine* [ZyrTEC 10 MG TAB*] 10 mg PO DAILY 06/06/18 [History Confirmed 06/06] oxyCODONE TAB* [Roxycodone TAB 5 mg*] 5 mg PO PRN 06/06/18 [History] Review of Systems All Other Systems Reviewed And Are Negative: Yes Constitutional: Positive: Negative Skin: Positive: Other - Irritation around incision Respiratory: Positive: Negative Cardiovascular: Positive: Negative Gastrointestinal: Positive: Negative Neurovascular: Positive: Negative Neurological: Positive: Negative Psychological: Positive: Negative PMH/Surg Hx/FS Hx/Imm Hx - Additional Past Medical History Additional PMH: Overactive bladder Cardiovascular History: Hypertension GI/ History: Gastroesophageal Reflux Other History Of: Negative For: HIV, Hepatitis B, Hepatitis C, Anticoagulant Therapy - Surgical History Surgical History: Yes Surgery Procedure, Year, and Place: UPPER PELVIC GRAFT- AGE 4. Nephrostomy tube. SCAR TISSUE REMOVED- AGE 25 - Family History Known Family History: Positive: Hypertension, Diabetes - Social History Occupation: Employed Full-time Lives: With Family Alcohol Use: Occasionally Substance Use Type: Marijuana Substance Use Comment - Amount & Last Used: rarely Smoking Status (MU): Never Smoked Tobacco - Immunization History Most Recent Tetanus Shot: UTD Physical Exam - Summary Physical Exam Summary: GENERAL: NAD. WDWN. No pain distress. SKIN: RUQ laparoscopic incision: 1.5cm surrounding area with mild erythema and irritation. Small papules. Incision healing well without drainage, warmth, or edema. CHEST: No accessory muscle use. Breathing comfortably and in no distress. CV: Pulses intact. Cap refill <2seconds NEURO: Alert. PSYCH: Age appropriate behavior. Triage Information Reviewed: Yes Vital Signs: Vital Signs: Temp Pulse Resp BP Pulse Ox 98.1 F 99 16 120/87 97 06/06/18 17:48 06/06/18 17:48 06/06/18 17:48 06/06/18 17:48 06/06/18 17:48 Vital Signs Reviewed: Yes Course/Dx - Course Course Of Treatment: Suspect contact dermatitis. Will try her with kenalog cream and have her f/u if her symptoms do not improve. - Diagnoses Provider Diagnoses: Contact dermatitis Discharge - Sign-Out/Discharge Documenting (check all that apply): Patient Departure All imaging exams completed and their final reports reviewed: No Studies - Discharge Plan Condition: Stable Disposition: HOME Prescriptions: Triamcinolone 0.1% CREAM (NF) [Kenalog 0.1% Cream (NF)] 1 applic TOPICAL BID #1 tube Patient Education Materials: Contact Dermatitis (DC) Referrals: Ericka Hobson NP [Primary Care Provider] - Additional Instructions: If you develop a fever, shortness of breath, chest pain, new or worsening symptoms - please call your PCP or go to the ED. - Billing Disposition and Condition Condition: STABLE Disposition: Home
[2018-06-06 17:56] VITALS: BP 120/87
== END 2018-06-06 18:20 | disposition home or self-care (01) ==
LOC: UCEAST 17:42
DX: L25.9 Unspecified contact dermatitis, unspecified cause (principal); I10 Essential (primary) hypertension; Z88.8 Allergy status to other drugs, medicaments and biological substances; Z88.5 Allergy status to narcotic agent; Z88.1 Allergy status to other antibiotic agents; Z88.6 Allergy status to analgesic agent; Z91.013 Allergy to seafood; Z91.048 Other nonmedicinal substance allergy status
CPT/HCPCS: 99212; G0463

== ENCOUNTER 2018-06-10 13:13 | Emergency (ER) | payer BC ==
[2018-06-10 13:22] VITALS: BP 124/88
[2018-06-10] MEDS ORDERED: methylPREDNISolone SOD 40 MG* 1 ML VIAL IM ONE (13:49)
--- NOTE | 2018-06-10 13:55 | ED ---
Skin Complaint - HPI Summary HPI Summary: Patient presents with worsening of rash since last visit. She had urologic surgery in [place] on 05/17/[address] Newton for a congenital hydronephrosis condition. After the surgery, her laparoscopic sites developed scant red itchy spots. She thought this was contact dermatitis from a bandage she applied. She tried [id number] topical Benadryl cream as well as hydrocortisone cream with minimal relief. She was seen here 06/06 and prescribed triamcinolone 0.1% cream which she reports has not been helpful - rash appears to be spreading along Rt side of abdomen. The only site that was not affected is one that remained open to drain (this is on her lowest right quadrant). She has had this surgery 2 times before and reports no issues like this however she is unsure if anything has changed such as closure material, cleaning supplies of her skin or instruments, Steri-Strip, glue, etc. She denies systematic anaphylactic symptoms such as throat tightness, difficulty swallowing, chest tightness shortness of breath, wheezing, abdominal pain/flank pain (outside of soreness status post surgery which she typically has after this procedure), fevers, chills. She is still moving her bowels, urinating without difficulty and eating and drinking well. Her next follow-up appointment with her urologist in [place] is in 1 month - stent is still in place - drains have been removed. She has significant medical history of eczema in the winter, seasonal allergies all year round which she treats with cetirizine daily and asthmatic bronchitis when she gets URI's. She has had oral steroids in the past without allergic reaction although she reports they can be upsetting to her stomach. She has not taken Benadryl recently for her symptoms either. - History of Current Complaint Chief Complaint: UCSkin Time Seen by Provider: 06/10/18 13:25 Stated Complaint: RASH Hx Obtained From: Patient Hx Last Menstrual Period: 05/29 Pain Intensity: 4 - Allergy/Home Medications Allergies/Adverse Reactions: Allergies Allergy/AdvReac Type Severity Reaction Status Date / Time dihydroergotamine Allergy See Comment Verified 06/10/18 13:22 hydromorphone [From Dilaudid] Allergy See Comment Verified 06/10/18 13:22 neomycin Allergy Swelling Verified 06/10/18 13:22 shellfish derived Allergy Anaphylatic Verified 06/10/18 13:22 Shock tramadol Allergy Hallucinati Verified 06/10/18 13:22 ons NSAIDS (Non-Steroidal AdvReac GI Upset Verified 06/10/18 13:22 Anti-Inflamma DHE Allergy UNABLE TO Uncoded 06/10/18 13:22 SWALLOW molds Allergy Congestion Uncoded 06/10/18 13:22 PMH/Surg Hx/FS Hx/Imm Hx Previously Healthy: Yes Endocrine/Hematology History: Reports: Other Endocrine/Hematological Disorders - low K+, low Mg, enlarged right kidney Denies: Hx Anticoagulant Therapy, Hx Diabetes, Hx Thyroid Disease Cardiovascular History: Denies: Hx Congestive Heart Failure, Hx Deep Vein Thrombosis, Hx Hypertension , Hx Myocardial Infarction, Hx Pacemaker/ICD Respiratory History: Reports: Hx Asthma - asthmatic bronchitis, Hx Seasonal Allergies - year round - takes cetirizine Denies: Hx Chronic Obstructive Pulmonary Disease (COPD), Hx Lung Cancer, Hx Pneumonia, Hx Pulmonary Embolism GI History: Denies: Hx Gall Bladder Disease, Hx Gastrointestinal Bleed, Hx Ulcer, Hx Urosepsis History: Reports: Hx Kidney Stones, Hx Renal Disease - ?RENAL INSUFF? h/o GI bleed - NO NSAIDS Sensory History: Reports: Hx Contacts or Glasses Opthamlomology History: Reports: Hx Contacts or Glasses Neurological History: Reports: Hx Migraine Denies: Hx Dementia, Hx Seizures, Hx Transient Ischemic Attacks (TIA) Psychiatric History: Reports: Hx Depression Denies: Hx Anxiety, Hx Schizophrenia, Hx Bipolar Disorder - Surgical History Surgery Procedure, Year, and Place: UPPER PELVIC GRAFT- AGE 4. Nephrostomy tube. SCAR TISSUE REMOVED- AGE 25. laparoscopic pyeloplasty 05/16/2018 - Immunization History Date of Tetanus Vaccine: 03/2011 Date of Influenza Vaccine: 2017 Infectious Disease History: No Infectious Disease History: Reports: History Other Infectious Disease - Herpes Denies: Hx Hepatitis, Hx Human Immunodeficiency Virus (HIV), Traveled Outside the [place] in Last 30 Days - Family History Known Family History: Positive: Hypertension, Diabetes - Social History Alcohol Use: Rare Hx Substance Use: No Substance Use Type: Reports: Marijuana Substance Use Comment - Amount & Last Used: rarely Hx Tobacco Use: No Smoking Status (MU): Never Smoked Tobacco Review of Systems Constitutional: Negative Negative: Fever, Chills, Fatigue Eyes: Negative ENT: Negative Cardiovascular: Negative Respiratory: Negative Gastrointestinal: Negative Positive: see HPI Musculoskeletal: Negative Positive: Rash Neurological: Negative Positive: Anxious All Other Systems Reviewed And Are Negative: Yes Physical Exam Triage Information Reviewed: Yes Vital Signs On Initial Exam: Initial Vitals Temp Pulse Resp BP Pulse Ox 98.4 F 96 14 124/88 100 06/10/18 13:17 06/10/18 13:17 06/10/18 13:17 06/10/18 13:17 06/10/18 13:17 Vital Signs Reviewed: Yes Appearance: Positive: Well-Appearing, Well-Nourished, Pain Distress - no pain but occasionally appears to be uncomfortable from itching Skin: Positive: Warm, Skin Color Reflects Adequate Perfusion, Dry - <1mm pink spots w/o urticaria over Rt side of anterior ab, clustered in areas of surigcal sites which are closed and healed EXCEPT lowest RLQ site which is clear of any spots - there is an element of mild hyperpigmentation in these area which may be from over itching - no bleeding, no edema, no fever to touch - these spots are no where else on her body; dry skin most noticable within stretch mcadams along B/L lower back Head/Face: Positive: Normal Head/Face Inspection Eyes: Positive: Normal, EOMI, Conjunctiva Clear. Negative: Conjunctiva Inflammed, Discharge ENT: Positive: Normal ENT inspection, Hearing grossly normal, Pharynx normal - mucosa moist Neck: Positive: Supple, Nontender, No Lymphadenopathy Respiratory/Lung Sounds: Positive: Clear to Auscultation, Breath Sounds Present. Negative: Rales, Rhonchi, Wheezes Cardiovascular: Positive: Normal, RRR Abdomen Description: Positive: No Organomegaly, Soft, Other: - mild (pt reports this is baseline for surgery she just had) Bowel Sounds: Positive: Present Musculoskeletal: Positive: Normal, Strength/ROM Intact Neurological: Positive: Normal, Sensory/Motor Intact, Alert, Oriented to Person Place, Time, CN Intact II-III Psychiatric: Positive: Anxious - but pleasant and cooperative Diagnostics - Vital Signs Vital Signs Temp Pulse Resp BP Pulse Ox 06/10/18 13:17 98.4 F 96 14 124/88 100 - Laboratory Lab Statement: Any lab studies that have been ordered have been reviewed, and results considered in the medical decision making process. Course/Dx - Course Course Of Treatment: Suspect reaction to something from surgery such as cleaning solution for skin prep, cleaning products of instruments, closure materials, etc as pt is atopic. Given her lack of response to topical anti- histamines nor steroid and intense itching, will rx oral steroids and have close f/u w/ urology in the event she's having a reaction to something placed internally. Danger signs and symptoms discussed with the patient will go to the emergency department if these present. Note: Advised patient to call urology Tuesday to update them of her symptoms and have a follow-up appointment sooner. She was given an IM of steroid here today as we decided to start her off with a larger dose and avoid putting this into her stomach as she's had irritation in the past. She will follow-up at home with a lower dose steroid Medrol Dosepak. - Diagnoses Provider Diagnoses: Rash Discharge - Sign-Out/Discharge Documenting (check all that apply): Patient Departure All imaging exams completed and their final reports reviewed: No Studies - Discharge Plan Condition: Stable Disposition: HOME Prescriptions: methylPREDNISolone [Medrol Dosepak 4 MG*] 4 mg PO .SEE ESEQUIEL INSTRUCTION #1 esequiel Patient Education Materials: Dermatitis (ED) Referrals: Eagle Cook MD [Medical Doctor] - Additional Instructions: TAKE BENADRYL 50MG BEFORE BED AND CONTINUE CETIRIZINE DURING THE DAY You were also provided with an injection of steroid today. It is important that she continue and complete her Medrol Dosepak as directed. Ask pharmacist if he have any questions. Take in the morning with food to avoid upset stomach. Stay hydrated, avoid excessive washing of your skin, avoid high temperatures in the shower/long duration and keep your home temperature 68 or less with humidifier to reduce risk of drying your skin out further. CALL UROLOGIST TUESDAY TO UPDATE REGARDING THIS CONDITION AND INQUIRE ABOUT ANY POSSIBLY NEW PRODUCTS/MARKET REPORTER/ETC USED DURING PROCEDURE TO AVOID REPEAT ISSUES IN THE FUTURE. *If you develop fever, chills, vomiting, spreading rash, difficulty breathing or swallowing, change in urination, go to the emergency department. - Billing Disposition and Condition Condition: STABLE Disposition: Home
== END 2018-06-10 14:05 | disposition home or self-care (01) ==
LOC: UCEAST 13:13
DX: R21 Rash and other nonspecific skin eruption (principal); Z88.8 Allergy status to other drugs, medicaments and biological substances; Z88.5 Allergy status to narcotic agent; Z88.1 Allergy status to other antibiotic agents
CPT/HCPCS: 96372; 99212; G0463; J2920

== ENCOUNTER 2018-06-17 12:14 | Emergency (ER) | payer BC ==
[2018-06-17 12:24] VITALS: BP 133/88
[2018-06-17] MEDS ORDERED: Morphine VIAL* 10 MG/ML 1 ML VIAL IM ONE (13:02)
--- NOTE | 2018-06-17 13:09 | UC ---
Complaint Female HPI - HPI Summary HPI Summary: 32 y/o female with long standing urological history with obstruction surgery R at age 4 with scar tissues, obstruction @ age 29 and multiple surgeries, stents since this time. Last stent was placed 05/17/2018. Patient presents with 3 days R flank pain, mild urinary frequency, mild burning with urination, but main complaint sharp shooting flank pain. No fever, chills. - History Of Current Complaint Chief Complaint: UCGU Stated Complaint: UTI Time Seen by Provider: 06/17/18 12:35 Hx Obtained From: Patient Hx Last Menstrual Period: 05/30/18 ?: No Onset/Duration: Sudden Onset, Lasting Days - x 3 days Timing: Constant Severity Initially: Mild Severity Currently: Moderate Pain Intensity: 6 Pain Scale Used: 0-10 Numeric Character: Sharp, Cramping, Colicy - Allergies/Home Medications Allergies/Adverse Reactions: Allergies Allergy/AdvReac Type Severity Reaction Status Date / Time dihydroergotamine Allergy See Comment Verified 06/17/18 12:25 hydromorphone [From Dilaudid] Allergy See Comment Verified 06/17/18 12:25 neomycin Allergy Swelling Verified 06/17/18 12:25 shellfish derived Allergy Anaphylatic Verified 06/17/18 12:25 Shock tramadol Allergy Hallucinati Verified 06/17/18 12:25 ons NSAIDS (Non-Steroidal AdvReac GI Upset Verified 06/17/18 12:25 Anti-Inflamma DHE Allergy UNABLE TO Uncoded 06/17/18 12:25 SWALLOW molds Allergy Congestion Uncoded 06/17/18 12:25 Home Medications: Home Medications Ibuprofen 400 mg PO 06/17/18 [History] PMH/Surg Hx/FS Hx/Imm Hx Previously Healthy: No - prior R stent Other History Of: Negative For: HIV, Hepatitis B, Hepatitis C, Anticoagulant Therapy - Surgical History Surgical History: Yes Surgery Procedure, Year, and Place: UPPER PELVIC GRAFT- AGE 4. Nephrostomy tube. SCAR TISSUE REMOVED- AGE 25. laparoscopic pyeloplasty 05/16/2018 - Family History Known Family History: Positive: Hypertension, Diabetes - Social History Alcohol Use: Rare Substance Use Type: Marijuana Substance Use Comment - Amount & Last Used: rarely Smoking Status (MU): Never Smoked Tobacco - Immunization History Most Recent Tetanus Shot: UTD Review of Systems All Other Systems Reviewed And Are Negative: Yes Gastrointestinal: Positive: Abdominal Pain Genitourinary: Positive: Dysuria, Frequency Is Patient Immunocompromised?: No Physical Exam Triage Information Reviewed: Yes Appearance: Well-Appearing, Well-Nourished, Pain Distress - moderate at rest Vital Signs: Initial Vital Signs Temp 97.1 F 06/17/18 12:21 Pulse 106 06/17/18 12:21 Resp 18 06/17/18 12:21 BP 133/88 06/17/18 12:21 Pulse Ox 100 06/17/18 12:21 Vital Signs Reviewed: Yes Eyes: Positive: Conjunctiva Clear Abdomen Description: Positive: No Organomegaly, Soft, CVA Tenderness (R), Other : - suprapubic pain. Negative: CVA Tenderness (L) Musculoskeletal Exam: Normal Neurological Exam: Normal Psychological Exam: Normal Skin Exam: Normal Complaint Female Dx - Course Course Of Treatment: UA= hematuria Discussed case with oncall physician Dr. Arango, pt requires further work up due to prior surgeries being done in [place] recommended follow up there. Patient given pain medication, will drive with mother. - Differential Dx/Diagnosis Provider Diagnosis: Abdominal pain Discharge - Sign-Out/Discharge Documenting (check all that apply): Patient Departure All imaging exams completed and their final reports reviewed: No Studies - Discharge Plan Condition: Good Disposition: HOME Patient Education Materials: Flank Pain (ED) Referrals: Ericka Hobson NP [Primary Care Provider] - Additional Instructions: - Spoke with Dr. Arango, recommended travelling to [place] since prior surgeries performed there. Remain nothing by mouth, no eating until seen in ER in case surgery required. - Billing Disposition and Condition Condition: GOOD Disposition: Home
== END 2018-06-17 13:30 | disposition home health service (06) ==
LOC: UCEAST 12:14
DX: R10.31 Right lower quadrant pain (principal); R30.0 Dysuria; R35.0 Frequency of micturition; R31.9 Hematuria, unspecified; Z88.8 Allergy status to other drugs, medicaments and biological substances; Z88.6 Allergy status to analgesic agent; Z88.1 Allergy status to other antibiotic agents; Z88.5 Allergy status to narcotic agent; Z91.013 Allergy to seafood
CPT/HCPCS: 81003; 84702; 96372; 99212; G0463; J2270

== ENCOUNTER 2018-07-07 17:43 | Emergency (ER) | payer BC ==
[2018-07-07 17:50] VITALS: BP 128/93
== END 2018-07-07 18:20 | disposition left against medical advice (07) ==
LOC: UCEAST 17:43
DX: R10.9 Unspecified abdominal pain (principal); Z53.21 Procedure and treatment not carried out due to patient leaving prior to being seen by health care provider

== ENCOUNTER 2018-07-07 18:41 | Emergency (ER) | payer BC ==
[2018-07-07 20:04] LABS: ABS Basophils 0 10^3/ul (0-0.2); ABS Eosinophils 0.1 10^3/ul (0-0.6); ABS Lymphocytes 1.8 10^3/ul (1.0-4.8); ABS Monocytes 0.9 10^3/ul (0-0.8); ABS Neutrophils 3.6 10^3/ul (1.5-7.7); ABS Nucleated RBC 0 10^3/ul; Hematocrit 37 % (35-47); Hemoglobin 12.6 g/dl (12.0-16.0); Lymphocyte % 28.1 %; Mean Corpuscular HGB Conc 34 g/dl (31-36); Mean Corpuscular Hemoglobin 31 pg (27-31); Mean Corpuscular Volume 92 fL (80-97); Mean Platelet Volume 8.5 fL (7.4-10.4); Nucleated Red Blood Cells % 0; Platelet Count 311 10^3/ul (150-450); Red Blood Count 4.04 10^6/ul (4.00-5.40); Red Cell Distribution Width 13 % (10.5-15); White Blood Count 6.3 10^3/ul (3.5-10.8)
[2018-07-07 20:24] LABS: ALT 15 U/L (7-52); AST 18 U/L (13-39); Albumin 3.9 g/dL (3.2-5.2); Albumin/Globulin Ratio 1.3 (1-3); Alkaline Phosphatase 61 U/L (34-104); Anion Gap 9 mmol/L (2-11); BUN/Creatinine Ratio 26.4 (8-20); Blood Urea Nitrogen 23 mg/dL (6-24); C Reactive Protein 18.96 mg/L (<8.01); CO2 Carbon Dioxide 28 mmol/L (22-32); Calcium 9.3 mg/dL (8.6-10.3); Chloride 100 mmol/L (101-111); Globulin 3.1 g/dL (2-4); Glucose 103 mg/dL (70-100); Sodium 137 mmol/L (135-145)
[2018-07-07 20:29] LABS: HCG Pregnancy < 0.60 mIU/mL
[2018-07-07] MEDS ORDERED: NS 0.9% 1000 ML* 1,000 ML IV ONE (21:24)
[2018-07-07] MEDS ORDERED: Morphine VIAL* 4 MG/ML VIAL (1 ml vial) IV ONE (21:25)
[2018-07-07 21:36] LABS: Magnesium 1.7 mg/dL (1.9-2.7)
[2018-07-07] MEDS ORDERED: Potassium Chlor TAB* 20 MEQ TAB.ER PO ONE (21:36)
--- NOTE | 2018-07-07 21:37 | ED ---
GI/ HPI - HPI Summary HPI Summary: 32-year-old female presents with lower abdominal pain today. States that she started her period started even though she is midcycle. She is having a lot of bleeding. States she is on control. States she's also been having a little bit of flank pain. She has history of renal issues and had a recently removed stent. She denies any urinary symptoms. She states the pain is crampy. She takes ibuprofen with some relief. She denies any nausea vomiting. She denies diarrhea. she has a history of low potassium. no fevers. no chest pain or SOB. - History of Current Complaint Chief Complaint: EDAbdPain Time Seen by Provider: 07/07/18 21:15 Stated Complaint: ABD PAIN/FLANK PAIN Hx Last Menstrual Period: CURRENT (LAST NORMAL PERIOD WEEK OF 06/22/18) Pain Intensity: 8 - Allergy/Home Medications Allergies/Adverse Reactions: Allergies Allergy/AdvReac Type Severity Reaction Status Date / Time dihydroergotamine Allergy See Comment Verified 07/07/18 17:50 hydromorphone [From Dilaudid] Allergy See Comment Verified 07/07/18 17:50 neomycin Allergy Swelling Verified 07/07/18 17:50 shellfish derived Allergy Anaphylatic Verified 07/07/18 17:50 Shock tramadol Allergy Hallucinati Verified 07/07/18 17:50 ons NSAIDS (Non-Steroidal AdvReac GI Upset Verified 07/07/18 17:50 Anti-Inflamma DHE Allergy UNABLE TO Uncoded 07/07/18 17:50 SWALLOW molds Allergy Congestion Uncoded 07/07/18 17:50 PMH/Surg Hx/FS Hx/Imm Hx Endocrine/Hematology History: Reports: Other Endocrine/Hematological Disorders - low K+, low Mg, enlarged right kidney Denies: Hx Anticoagulant Therapy, Hx Diabetes, Hx Thyroid Disease Cardiovascular History: Denies: Hx Congestive Heart Failure, Hx Deep Vein Thrombosis, Hx Hypertension , Hx Myocardial Infarction, Hx Pacemaker/ICD Respiratory History: Reports: Hx Asthma - asthmatic bronchitis, Hx Seasonal Allergies - year round - takes cetirizine Denies: Hx Chronic Obstructive Pulmonary Disease (COPD), Hx Lung Cancer, Hx Pneumonia, Hx Pulmonary Embolism GI History: Denies: Hx Gall Bladder Disease, Hx Gastrointestinal Bleed, Hx Ulcer, Hx Urosepsis History: Reports: Hx Kidney Stones, Hx Renal Disease - ?RENAL INSUFF? h/o GI bleed - NO NSAIDS Sensory History: Reports: Hx Contacts or Glasses Opthamlomology History: Reports: Hx Contacts or Glasses Neurological History: Reports: Hx Migraine Denies: Hx Dementia, Hx Seizures, Hx Transient Ischemic Attacks (TIA) Psychiatric History: Reports: Hx Depression Denies: Hx Anxiety, Hx Schizophrenia, Hx Bipolar Disorder - Surgical History Surgery Procedure, Year, and Place: UPPER PELVIC GRAFT- AGE 4. Nephrostomy tube. SCAR TISSUE REMOVED- AGE 25. laparoscopic pyeloplasty 05/16/2018. KIDNEY STONE PLACED AND REMOVED (06/27/18) - Immunization History Date of Tetanus Vaccine: 03/2011 Date of Influenza Vaccine: 2017 Infectious Disease History: No Infectious Disease History: Reports: History Other Infectious Disease - Herpes Denies: Hx Hepatitis, Hx Human Immunodeficiency Virus (HIV), Traveled Outside the [place] in Last 30 Days - Family History Known Family History: Positive: Hypertension, Diabetes - Social History Alcohol Use: Rare Hx Substance Use: No Substance Use Type: Reports: Marijuana Substance Use Comment - Amount & Last Used: rarely Hx Tobacco Use: No Smoking Status (MU): Never Smoked Tobacco Review of Systems Negative: Fever Negative: Chest Pain Negative: Shortness Of Breath Positive: Abdominal Pain, Diarrhea, Nausea. Negative: Vomiting All Other Systems Reviewed And Are Negative: Yes Physical Exam Triage Information Reviewed: Yes Vital Signs On Initial Exam: Initial Vitals Temp Pulse Resp BP Pulse Ox 98.3 F 94 18 124/99 100 07/07/18 18:45 07/07/18 18:45 07/07/18 18:45 07/07/18 18:45 07/07/18 18:45 Vital Signs Reviewed: Yes Appearance: Positive: Well-Appearing Skin: Positive: Warm, Dry Head/Face: Positive: Normal Head/Face Inspection Eyes: Positive: Normal, Conjunctiva Clear ENT: Positive: Pharynx normal Respiratory/Lung Sounds: Positive: Clear to Auscultation, Breath Sounds Present Cardiovascular: Positive: Normal, RRR Abdomen Description: Positive: CVA Tenderness (R), Other: - tenderness lower abd Bowel Sounds: Positive: Present Pelvic Exam: Positive: External Exam Normal, Speculum Exam Normal, Bimanual Exam Normal, No Cerv. Motion Tender, Blood - old, Tender Uterus Musculoskeletal: Positive: Normal Neurological: Positive: Normal Psychiatric: Positive: Normal Diagnostics - Vital Signs Vital Signs Temp Pulse Resp BP Pulse Ox 07/07/18 21:30 16 07/07/18 21:21 94 98 07/07/18 21:20 90 132/101 99 07/07/18 21:19 156/102 07/07/18 18:45 98.3 F 94 18 124/99 100 - Laboratory Lab Results: Lab Results 07/07/18 07/07/18 Range/Units 19:41 19:41 WBC 6.3 (3.5-10.8) 10^3/ul RBC 4.04 (4.00-5.40) 10^6/ul Hgb 12.6 (12.0-16.0) g/dl Hct 37 (35-47) % MCV 92 (80-97) fL MCH 31 (27-31) pg MCHC 34 (31-36) g/dl RDW 13 (10.5-15) % Plt Count 311 (150-450) 10^3/ul MPV 8.5 (7.4-10.4) fL Neut % (Auto) 56.4 % Lymph % (Auto) 28.1 % Levy % (Auto) 14.1 % Eos % (Auto) 1.0 % Baso % (Auto) 0.4 % Absolute Neuts (auto) 3.6 (1.5-7.7) 10^3/ul Absolute Lymphs (auto) 1.8 (1.0-4.8) 10^3/ul Absolute Monos (auto) 0.9 H (0-0.8) 10^3/ul Absolute Eos (auto) 0.1 (0-0.6) 10^3/ul Absolute Basos (auto) 0 (0-0.2) 10^3/ul Absolute Nucleated RBC 0 10^3/ul Nucleated RBC % 0 Sodium 137 (135-145) mmol/L Potassium 3.0 L (3.5-5.0) mmol/L Chloride 100 L (101-111) mmol/L Carbon Dioxide 28 (22-32) mmol/L Anion Gap 9 (2-11) mmol/L BUN 23 (6-24) mg/dL Creatinine 0.87 (0.51-0.95) mg/dL Est GFR ( Amer) 90.7 (>60) Est GFR (Non-Af Amer) 75.0 (>60) BUN/Creatinine Ratio 26.4 H (8-20) Glucose 103 H (70-100) mg/dL Calcium 9.3 (8.6-10.3) mg/dL Magnesium 1.7 L (1.9-2.7) mg/dL Total Bilirubin 0.30 (0.2-1.0) mg/dL AST 18 (13-39) U/L ALT 15 (7-52) U/L Alkaline Phosphatase 61 (34-104) U/L C-Reactive Protein 18.96 H (<8.01) mg/L Total Protein 7.0 (6.4-8.9) g/dL Albumin 3.9 (3.2-5.2) g/dL Globulin 3.1 (2-4) g/dL Albumin/Globulin Ratio 1.3 (1-3) Lipase 36 (11.0-82.0) U/L Beta HCG, Quant < 0.60 mIU/mL Result Diagrams: 07/07/18 19:41 07/07/18 19:41 Lab Statement: Any lab studies that have been ordered have been reviewed, and results considered in the medical decision making process. GIGU Course/Dx - Course Course Of Treatment: 32-year-old female presents with lower abdominal pain today. States that she started her period started even though she is midcycle. She is having a lot of bleeding. States she is on control. States she' s also been having a little bit of flank pain. She has history of renal issues and had a recently removed stent. She denies any urinary symptoms. She states the pain is crampy. She takes ibuprofen with some relief. She denies any nausea vomiting. She denies diarrhea. she has a history of low potassium. On exam tenderness in lower abdomen. Tenderness over right CVA. Lab work: wbc normal. CRP is normal. Potassium was low so gave supplement. Transvaginal ultrasound is normal. Normal pelvic exam except for tenderness of uterus with old blood seen. CT shows dilation of the calyxes. Explained likely dysmenorrhea pain. told to follow up with food and drug inspector. Patient understands agrees the plan. - Diagnoses Differential Diagnoses - Female: DVB/Menopause, Ovarian Cyst, Ovarian Torsion, Urinary Tract Infection Provider Diagnoses: Dysmenorrhea Discharge - Sign-Out/Discharge Documenting (check all that apply): Patient Departure - Discharge Plan Condition: Good Disposition: HOME Patient Education Materials: Dysmenorrhea (ED) Referrals: Ericka Hobson NP [Primary Care Provider] - Miguel Ángel Garcia MD [Medical Doctor] - Additional Instructions: Follow up with food and drug inspector Take tyenlol every 6 hours as needed for pain apply heat at abdomen Return to ED if develop any new or worsening symptoms - Billing Disposition and Condition Condition: GOOD Disposition: Home
[2018-07-07 23:47] VITALS: BP 104/65
== END 2018-07-07 23:51 | disposition home or self-care (01) ==
LOC: ED 18:41
DX: N94.6 Dysmenorrhea, unspecified (principal); J45.909 Unspecified asthma, uncomplicated; F32.9 Major depressive disorder, single episode, unspecified
CPT/HCPCS: 36415; 74176; 76830; 80053; 83690; 83735; 84702; 85025; 86140; 87480; 87491; 87510; 87591; 87661; 99283; A9270-GY; J2270

== ENCOUNTER 2018-08-24 17:44 | Emergency (ER) | payer BC ==
--- NOTE | 2018-08-24 18:26 | UC ---
Complaint Female HPI - HPI Summary HPI Summary: REports Nausea , urgency, dysuria, and R sided intermittent pain. Has had 3 surgical intervention on R kidney, most recent a stent was placed 2 wks. ago. Denies fever, vomiting, joint pain. also reporting her RUQ rash is back; tx'ed at urgent care a few wks back. itchy , somewhat red. no new topical products or chemicals. - History Of Current Complaint Stated Complaint: RASH, AND BURNING URINATION Time Seen by Provider: 08/24/18 18:04 Hx Obtained From: Patient Hx Last Menstrual Period: CURRENT (LAST NORMAL PERIOD WEEK OF 06/22/18) Character: Burning Aggravating Factor(s): Nothing Alleviating Factor(s): Nothing - Allergies/Home Medications Allergies/Adverse Reactions: Allergies Allergy/AdvReac Type Severity Reaction Status Date / Time dihydroergotamine Allergy See Comment Verified 08/24/18 18:36 hydromorphone [From Dilaudid] Allergy See Comment Verified 08/24/18 18:36 neomycin Allergy Swelling Verified 08/24/18 18:36 shellfish derived Allergy Anaphylatic Verified 08/24/18 18:36 Shock tramadol Allergy Hallucinati Verified 08/24/18 18:36 ons NSAIDS (Non-Steroidal AdvReac GI Upset Verified 08/24/18 18:36 Anti-Inflamma molds Allergy Congestion Uncoded 08/24/18 18:36 Home Medications: Home Medications Oxybutynin TAB* [Ditropan TAB*] 5 mg PO DAILY 08/24/18 [History Confirmed ] PMH/Surg Hx/FS Hx/Imm Hx Previously Healthy: No - recurrent renal issues GI/ History: Other - R renal stent, chronic hydronephrosis Other History Of: Negative For: HIV, Hepatitis B, Hepatitis C, Anticoagulant Therapy - Surgical History Surgical History: Yes Surgery Procedure, Year, and Place: UPPER PELVIC GRAFT- AGE 4. Nephrostomy tube. SCAR TISSUE REMOVED- AGE 25. laparoscopic pyeloplasty 05/16/2018. KIDNEY STONE PLACED AND REMOVED (06/27/18) - Family History Known Family History: Positive: Hypertension, Diabetes - Social History Alcohol Use: Rare Substance Use Type: Marijuana Substance Use Comment - Amount & Last Used: rarely Smoking Status (MU): Never Smoked Tobacco - Immunization History Most Recent Tetanus Shot: UTD Review of Systems All Other Systems Reviewed And Are Negative: Yes Constitutional: Positive: Negative Skin: Positive: Rash - ruq abd, itchy, a little red and prickly per pt. Respiratory: Positive: Negative Cardiovascular: Positive: Negative Gastrointestinal: Negative: Abdominal Pain, Vomiting, Diarrhea, Nausea Genitourinary: Positive: Dysuria, Frequency, Urgency. Negative: Hematuria Neurological: Negative: Headache, Weakness Physical Exam Triage Information Reviewed: Yes Appearance: Well-Appearing Vital Signs Reviewed: Yes Respiratory Exam: Normal Cardiovascular Exam: Normal Abdomen Description: Negative: CVA Tenderness (R), CVA Tenderness (L) Skin: Positive: Rashes - RUQ, blanching, prickly feel and pruritic Complaint Female Dx - Course Course Of Treatment: Dysuria in a pt. w/ chronic hydronephrosis on R side, has stent. Has urologist on board; will be seeing them in a few days. Vitals are good but will tx for suspected UTI, sending for cx; UA significant but no nitrites. Also has a recurrent patch of dermatitis for which she will use her topical steroid cream for. Evaluated today and appears to be blanching dermatitis, pruritic. Pt stable. - Differential Dx/Diagnosis Differential Diagnosis/HQI/PQRI: Urinary Tract Infection, Other - rash Provider Diagnosis: Dysuria Discharge - Sign-Out/Discharge Documenting (check all that apply): Patient Departure All imaging exams completed and their final reports reviewed: No Studies - Discharge Plan Condition: Good Disposition: HOME Prescriptions: Ciprofloxacin TAB* [Cipro 500 MG TAB*] 500 mg PO BID 5 Days #10 tab Fluconazole 150 MG TAB* [Diflucan 150 MG TAB*] 150 mg PO UC ONCE #1 tablet Patient Education Materials: Dysuria (ED) Referrals: Ericka Hobson NP [Primary Care Provider] - Additional Instructions: You will need to find primary care and you can choose whoever you like in this area. You can also call [facility] at [phone] - Billing Disposition and Condition Condition: GOOD Disposition: Home
[2018-08-24 18:35] VITALS: BP 119/76
--- NOTE | 2018-08-26 15:59 | UC ---
- Progress Note Progress Note: call patient and assure sx have resolved ---if not have her re-check with pcp. Course/Dx - Diagnoses Provider Diagnoses: Dysuria Discharge - Sign-Out/Discharge Documenting (check all that apply): Post-Discharge Follow Up All imaging exams completed and their final reports reviewed: No Studies - Discharge Plan Condition: Good Disposition: HOME Prescriptions: Ciprofloxacin TAB* [Cipro 500 MG TAB*] 500 mg PO BID 5 Days #10 tab Fluconazole 150 MG TAB* [Diflucan 150 MG TAB*] 150 mg PO UC ONCE #1 tablet Patient Education Materials: Dysuria (ED) Referrals: Ericka Hobson NP [Primary Care Provider] - Additional Instructions: You will need to find primary care and you can choose whoever you like in this area. You can also call [facility] at [phone] - Billing Disposition and Condition Condition: GOOD Disposition: Home
[2018-08-28 14:10] LABS: Urine Appearance Cloudy; Urine Bacteria Absent (Absent); Urine Bilirubin Negative (Negative); Urine Blood Negative (Negative); Urine Color Yellow; Urine Glucose Negative (Negative); Urine Ketones Negative (Negative); Urine Nitrite Negative (Negative); Urine Protein 2+(100 mg/dL) (Negative); Urine Red Blood Cell Trace(0-2/hpf) (Absent); Urine Specific Gravity 1.024 (1.010-1.030); Urine Squamous Epithelial Cell Present (Absent); Urine Urobilinogen Negative (Negative); Urine White Blood Cell 2+(11-20/hpf) (Absent)
== END 2018-08-24 19:25 | disposition home or self-care (01) ==
LOC: UCEAST 17:44
DX: R30.0 Dysuria (principal); R11.0 Nausea; N13.30 Unspecified hydronephrosis; L30.8 Other specified dermatitis; R39.15 Urgency of urination; Z88.1 Allergy status to other antibiotic agents; Z88.5 Allergy status to narcotic agent; Z91.013 Allergy to seafood; Z88.8 Allergy status to other drugs, medicaments and biological substances; Z91.09 Other allergy status, other than to drugs and biological substances; Z93.6 Other artificial openings of urinary tract status
CPT/HCPCS: 81003; 81015; 84702; 87086; 99212; G0463

== ENCOUNTER 2018-09-19 18:47 | Emergency (ER) | payer BC ==
[2018-09-19] MEDS ORDERED: NS 0.9% 1000 ML** 1,000 ML IV ONE (19:57)
[2018-09-19] MEDS ORDERED: PROCHLORPERAZINE INJ 5 MG/ML 2 ML VIAL IV ONE (19:58)
[2018-09-19] MEDS ORDERED: Ketorolac INJ* 30 MG/ML 1 ML VIAL IV PUSH ONE (20:00)
[2018-09-19] MEDS ORDERED: Ketorolac INJ* 15 MG/ML 1 ML VIAL ONE (20:02)
[2018-09-19] MEDS ORDERED: diPHENhydraMINE PO* 25 MG PO ONE (20:18)
[2018-09-19 20:25] LABS: ABS Basophils 0.1 10^3/ul (0-0.2); ABS Eosinophils 0.1 10^3/ul (0-0.6); ABS Lymphocytes 1.8 10^3/ul (1.0-4.8); ABS Monocytes 0.7 10^3/ul (0-0.8); ABS Neutrophils 3.8 10^3/ul (1.5-7.7); ABS Nucleated RBC 0 10^3/ul; Eosinophil % 0.8 %; Hematocrit 37 % (35-47); Hemoglobin 12.1 g/dl (12.0-16.0); Lymphocyte % 28.1 %; Mean Corpuscular HGB Conc 33 g/dl (31-36); Mean Corpuscular Hemoglobin 30 pg (27-31); Mean Corpuscular Volume 91 fL (80-97); Mean Platelet Volume 8.1 fL (7.4-10.4); Nucleated Red Blood Cells % 0.1; Platelet Count 292 10^3/ul (150-450); Red Cell Distribution Width 14 % (10.5-15); White Blood Count 6.4 10^3/ul (3.5-10.8)
[2018-09-19 20:38] LABS: Albumin/Globulin Ratio 1.3 (1-3); BUN/Creatinine Ratio 16.1 (8-20); C Reactive Protein 14.64 mg/L (<8.01); Calcium 9.1 mg/dL (8.6-10.3); EGFR African American 90.7 (>60); Magnesium 1.3 mg/dL (1.9-2.7); Potassium 2.8 mmol/L (3.5-5.0); Total Bilirubin 0.5 mg/dL (0.2-1.0)
[2018-09-19] MEDS ORDERED: Magnesium Sulfate 2 GM IV* 2 GM/50 ML BAG IVPB ONE (21:10)
[2018-09-19] MEDS ORDERED: KCL 20 MEQ/100 ML IVPREMIX* 20 MEQ/100 ML BAG IV ONE (21:12)
[2018-09-19] MEDS ORDERED: Potassium Chloride LIQUID* 20 MEQ PACKET PO ONE (21:13)
--- NOTE | 2018-09-19 21:16 | ED ---
Headache - HPI Summary HPI Summary: 31-year-old female presents with headache for the past week. She admits to nausea vomiting. She also admits to dizziness. She states she has a history of migraines. She has not a migraine in sometime. this is not the worse headache of her life. She states she has had surgery of a ureteral stent and feels like she may have moved it with the vomiting. She also fell last week on the area. She denies any urinary symptoms. No blood in her urine. She denies any fevers. No neck stiffness. No recent illness. No chest pain or shortness breath. No cough. She admits to photophobia. Denies any change in vision. this is the typical location of her headaches they just normally do not last this long. - History Of Current Complaint Chief Complaint: EDHeadache Stated Complaint: HEADACHE X 1 WK/DIZZINESS/VOMITING PER PT Time Seen by Provider: 09/19/18 19:48 Hx Last Menstrual Period: CURRENT (LAST NORMAL PERIOD WEEK OF 06/22/18) - Allergies/Home Medications Allergies/Adverse Reactions: Allergies Allergy/AdvReac Type Severity Reaction Status Date / Time dihydroergotamine Allergy See Comment Verified 09/19/18 18:53 hydromorphone [From Dilaudid] Allergy See Comment Verified 09/19/18 18:53 neomycin Allergy Swelling Verified 09/19/18 18:53 shellfish derived Allergy Anaphylatic Verified 09/19/18 18:53 Shock tramadol Allergy Hallucinati Verified 09/19/18 18:53 ons NSAIDS (Non-Steroidal AdvReac GI Upset Verified 09/19/18 18:53 Anti-Inflamma molds Allergy Congestion Uncoded 09/19/18 18:53 PMH/Surg Hx/FS Hx/Imm Hx Endocrine/Hematology History: Reports: Other Endocrine/Hematological Disorders - low K+, low Mg, enlarged right kidney Denies: Hx Anticoagulant Therapy, Hx Diabetes, Hx Thyroid Disease Cardiovascular History: Denies: Hx Congestive Heart Failure, Hx Deep Vein Thrombosis, Hx Hypertension , Hx Myocardial Infarction, Hx Pacemaker/ICD Respiratory History: Reports: Hx Asthma - asthmatic bronchitis, Hx Seasonal Allergies - year round - takes cetirizine Denies: Hx Chronic Obstructive Pulmonary Disease (COPD), Hx Lung Cancer, Hx Pneumonia, Hx Pulmonary Embolism GI History: Denies: Hx Gall Bladder Disease, Hx Gastrointestinal Bleed, Hx Ulcer, Hx Urosepsis History: Reports: Hx Kidney Stones, Hx Renal Disease - ?RENAL INSUFF? h/o GI bleed - NO NSAIDS Sensory History: Reports: Hx Contacts or Glasses Opthamlomology History: Reports: Hx Contacts or Glasses Neurological History: Reports: Hx Migraine Denies: Hx Dementia, Hx Seizures, Hx Transient Ischemic Attacks (TIA) Psychiatric History: Reports: Hx Depression Denies: Hx Anxiety, Hx Schizophrenia, Hx Bipolar Disorder - Surgical History Surgery Procedure, Year, and Place: UPPER PELVIC GRAFT- AGE 4. Nephrostomy tube. SCAR TISSUE REMOVED- AGE 25. laparoscopic pyeloplasty 05/16/2018. KIDNEY STONE PLACED AND REMOVED (06/27/18) - Immunization History Date of Tetanus Vaccine: 03/2011 Date of Influenza Vaccine: 2016 Infectious Disease History: No Infectious Disease History: Reports: History Other Infectious Disease - Herpes Denies: Hx Hepatitis, Hx Human Immunodeficiency Virus (HIV), Traveled Outside the [place] in Last 30 Days - Family History Known Family History: Positive: Hypertension, Diabetes - Social History Alcohol Use: Rare Hx Substance Use: No Substance Use Type: Reports: Marijuana Substance Use Comment - Amount & Last Used: rarely Hx Tobacco Use: No Smoking Status (MU): Never Smoked Tobacco Review of Systems Negative: Fever Negative: Chest Pain Negative: Shortness Of Breath Positive: Vomiting, Nausea Positive: flank pain Positive: Headache All Other Systems Reviewed And Are Negative: Yes Physical Exam Triage Information Reviewed: Yes Vital Signs On Initial Exam: Initial Vitals Temp Pulse Resp BP Pulse Ox 99.1 F 108 20 132/95 94 09/19/18 18:54 09/19/18 18:54 09/19/18 18:54 09/19/18 18:54 09/19/18 18:54 Vital Signs Reviewed: Yes Appearance: Positive: Pain Distress Skin: Positive: Warm, Dry Head/Face: Positive: Normal Head/Face Inspection Eyes: Positive: Normal, EOMI, CAPO, Conjunctiva Clear ENT: Positive: Normal ENT inspection, Pharynx normal, TMs normal Respiratory/Lung Sounds: Positive: Clear to Auscultation, Breath Sounds Present Cardiovascular: Positive: Normal, RRR Abdomen Description: Positive: Nontender, Soft, CVA Tenderness (R). Negative: CVA Tenderness (L) Bowel Sounds: Positive: Present Musculoskeletal: Positive: Normal Neurological: Positive: Sensory/Motor Intact, Alert, Oriented to Person Place, Time, CN Intact II-III Psychiatric: Positive: Normal Diagnostics - Vital Signs Vital Signs Temp Pulse Resp BP Pulse Ox 09/19/18 19:24 94 117/84 97 09/19/18 19:23 95 09/19/18 18:54 99.1 F 108 20 132/95 94 - Laboratory Lab Results: Lab Results 09/19/18 09/19/18 Range/Units 20:11 20:11 WBC 6.4 (3.5-10.8) 10^3/ul RBC 4.00 (4.00-5.40) 10^6/ul Hgb 12.1 (12.0-16.0) g/dl Hct 37 (35-47) % MCV 91 (80-97) fL MCH 30 (27-31) pg MCHC 33 (31-36) g/dl RDW 14 (10.5-15) % Plt Count 292 (150-450) 10^3/ul MPV 8.1 (7.4-10.4) fL Neut % (Auto) 58.6 % Lymph % (Auto) 28.1 % Kemper % (Auto) 11.6 % Eos % (Auto) 0.8 % Baso % (Auto) 0.9 % Absolute Neuts (auto) 3.8 (1.5-7.7) 10^3/ul Absolute Lymphs (auto) 1.8 (1.0-4.8) 10^3/ul Absolute Monos (auto) 0.7 (0-0.8) 10^3/ul Absolute Eos (auto) 0.1 (0-0.6) 10^3/ul Absolute Basos (auto) 0.1 (0-0.2) 10^3/ul Absolute Nucleated RBC 0 10^3/ul Nucleated RBC % 0.1 Sodium 136 (135-145) mmol/L Potassium 2.8 L (3.5-5.0) mmol/L Chloride 101 (101-111) mmol/L Carbon Dioxide 27 (22-32) mmol/L Anion Gap 8 (2-11) mmol/L BUN 14 (6-24) mg/dL Creatinine 0.87 (0.51-0.95) mg/dL Est GFR ( Amer) 90.7 (>60) Est GFR (Non-Af Amer) 75.0 (>60) BUN/Creatinine Ratio 16.1 (8-20) Glucose 116 H (70-100) mg/dL Calcium 9.1 (8.6-10.3) mg/dL Magnesium 1.3 L (1.9-2.7) mg/dL Total Bilirubin 0.50 (0.2-1.0) mg/dL AST 16 (13-39) U/L ALT 11 (7-52) U/L Alkaline Phosphatase 54 (34-104) U/L C-Reactive Protein 14.64 H (<8.01) mg/L Total Protein 7.0 (6.4-8.9) g/dL Albumin 4.0 (3.2-5.2) g/dL Globulin 3.0 (2-4) g/dL Albumin/Globulin Ratio 1.3 (1-3) Result Diagrams: 09/19/18 20:11 09/19/18 20:11 Lab Statement: Any lab studies that have been ordered have been reviewed, and results considered in the medical decision making process. - Radiology abd Radiology Interpretation Completed By: ED Physician Summary of Radiographic Findings: stent appears to be in place, pending official report Re-Evaluation - Re-Evaluation First Eval Re-Evaluation Time: 21:16 Change: Improved Comment: feeling better. discussed electrolytes low Second Eval Re-Evaluation Time: 22:59 Change: Improved Comment: headache less, wants to sleep in room Third Eval Re-Evaluation Time: 00:15 Change: Worse Comment: headache is returning but is less than when came in Fourth Eval Re-Evaluation Time: 00:30 Change: Improved Comment: feeling good enough to go home Headache Course/Dx - Course Course Of Treatment: 31-year-old female presents with headache for the past week. She admits to nausea vomiting. She also admits to dizziness. She states she has a history of migraines. She has not a migraine in sometime. this is not the worse headache of her life. She states she has had surgery of a ureteral stent and feels like she may have moved it with the vomiting. She also fell last week on the area. She denies any urinary symptoms. No blood in her urine. She denies any fevers. No neck stiffness. No recent illness. No chest pain or shortness breath. No cough. She admits to photophobia. Denies any change in vision. On exam has normal neuro exam. Tenderness over right flank. wbc normal. Potassium is 2.8. Magnesium 1.3. Gave Compazine Benadryl and Toradol feeling better. Supplemental magnesium potassium given. discussed with dr pedraza who said get xray for stent placement. xray read by me and dr pedraza as stent appears to be in place. patient headache slightly returned so gave decadron. will give zofran to go. patient understand and agrees with plan. - Diagnoses Differential Diagnosis/HQI/PQRI: Migraine, Sinus Headache, Tension Headache Provider Diagnoses: Headache Discharge - Sign-Out/Discharge Documenting (check all that apply): Patient Departure Patient Received Moderate/Deep Sedation with Procedure: No - Discharge Plan Condition: Good Disposition: HOME Prescriptions: Metoclopramide TAB* [Reglan TAB*] 10 mg PO Q6H #18 tab Patient Education Materials: Migraine Headache (ED) Forms: *Work Release Referrals: [facility] [Outside] Care [facility] [Outside] Additional Instructions: take reglan every 6 hours as needed for nausea Establish care with primary Return to ED if develop any new or worsening symptoms - Billing Disposition and Condition Condition: GOOD Disposition: Home
[2018-09-20] MEDS ORDERED: Dexamethasone IV* 4 MG/ML 1 ML (4 MG) IV SLOW PU ONE
[2018-09-20] MEDS ORDERED: Metoclopramide TAB* 10 MG PO ONE (00:25)
[2018-09-20 00:36] VITALS: BP 111/75
== END 2018-09-20 00:35 | disposition home or self-care (01) ==
LOC: ED 18:47
DX: R51 Headache (principal); R42 Dizziness and giddiness; Z88.6 Allergy status to analgesic agent; R11.2 Nausea with vomiting, unspecified; Z87.442 Personal history of urinary calculi
CPT/HCPCS: 36415; 74018; 80053; 83735; 85025; 86140; 96361; 96365; 96375; 99283; A9270-GY; J0780; J1100; J1885; J3475; J3480

== ENCOUNTER 2018-10-27 17:40 | Emergency (ER) | payer BC ==
[2018-10-27 18:09] VITALS: BP 119/90
--- NOTE | 2018-10-27 18:29 | UC ---
Abdominal Pain Female HPI - HPI Summary HPI Summary: Pt presents to [facility] x 4 days progressive urinary frequency, urgency, cramping and flank pain. Pt states had a D+C earlier this week for persistent vaginal bleeding and polyp - pt states intially thought her discomfort was related to this. Today she develop dysuria and became concerned for UTI. Pt with a h/o of ureter surgery and has stents. Pt states has a h/o recurrent UTIs. No fever, chills no n/v. no diarrhea. no abdominal pain. No analgesia taken. Pt's medications reviewed this visit - History of Current Complaint Chief Complaint: UCGU Stated Complaint: BURNING URINATION Time Seen by Provider: 10/27/18 18:23 Hx Obtained From: Patient Hx Last Menstrual Period: ON DEPOPROVERA ?: No Onset/Duration: Gradual Onset Pain Intensity: 8 Allergies/Adverse Reactions: Allergies Allergy/AdvReac Type Severity Reaction Status Date / Time dihydroergotamine Allergy Severe See Comment Verified 10/27/18 18:10 hydromorphone [From Dilaudid] Allergy Severe See Comment Verified 10/27/18 18:10 shellfish derived Allergy Severe Anaphylatic Verified 10/27/18 18:10 Shock tramadol Allergy Severe Hallucinati Verified 10/27/18 18:10 ons neomycin Allergy Intermediate Swelling Verified 10/27/18 18:10 NSAIDS (Non-Steroidal AdvReac Severe GI Upset Verified 10/27/18 18:10 Anti-Inflamma molds Allergy Severe Anaphylatic Uncoded 10/27/18 18:10 Shock Home Medications: Home Medications Acetaminophen [Tylenol Extra Strength] 1,000 mg PO ONCE PRN 10/27/18 [History Confirmed 10/27/18] medroxyPROGESTERone ACETATE* [DEPO-Provera] 150 mg IM 10/27/18 [History] PMH/Surg Hx/FS Hx/Imm Hx Previously Healthy: Yes Other History Of: Negative For: HIV, Hepatitis B, Hepatitis C, Anticoagulant Therapy - Surgical History Surgical History: Yes Surgery Procedure, Year, and Place: UPPER PELVIC GRAFT 1989 [facility]. SCAR TISSUE REMOVED- AGE 25. LAPAROSCOPIC PYLOPLASTY 05/16/2018 [facility]. LAPAROSCOPIC PYLOPLASTY 07/04 [facility] - Family History Known Family History: Positive: Hypertension, Diabetes, Non-Contributory - Social History Occupation: Employed Full-time Lives: With Family Alcohol Use: Occasionally Alcohol Amount: 2 DRINKS/MONTH Substance Use Type: Marijuana Substance Use Comment - Amount & Last Used: rarely Smoking Status (MU): Current Some Day Smoker Amount Used/How Often: 1/2 CIGARETTE 2 X YR SOCIALLY Have You Smoked in the Last Year: No - Immunization History Most Recent Tetanus Shot: UTD Review of Systems All Other Systems Reviewed And Are Negative: Yes Constitutional: Positive: Negative. Negative: Fever, Chills, Fatigue Skin: Positive: Negative Genitourinary: Positive: Dysuria, Frequency, Urgency, Other - + CVA Is Patient Immunocompromised?: No Physical Exam - Summary Physical Exam Summary: Vital Signs Reviewed: Yes A+Ox3, no distress Eyes: Conjunctiva Clear, CAPO. EOM intact and full ENT: Hearing grossly normal TM x 2 clear, mmoist, uvula midline, no exudate, no erythema Neck: Positive: Supple Respiratory: Positive: No respiratory distress, No accessory muscle use + CTA throughout no w/r Cardiovascular: RRR nl s1, s2 no m/r CBT <2 sec abd soft + BS nd no guarding, no distension no cva R>L, mild suprapubic Musculoskeletal Exam: MANCIA x 4 without difficulty Strength Intact, ROM Intact Neurological: Positive: Alert, + sensation throughout Psychological: Positive: Normal Response To Family Skin: Positive: no rash, no ecchymosis Triage Information Reviewed: Yes Vital Signs: Initial Vital Signs Temp 98.3 F 10/27/18 18:05 Pulse 91 10/27/18 18:05 Resp 16 10/27/18 18:05 BP 119/90 10/27/18 18:05 Pulse Ox 99 10/27/18 18:05 Abd Pain Female Course/Dx - Course Course Of Treatment: Patient with 3-4 days of progressive abdominal cramping urinary frequency and right flank pain. Today patient with dysuria. Patient recently had a D&C attributed discomfort that. Patient states today she felt his hearing was concern of UTI. Patient with a history of ureter surgery and has a stent. Patient with a history of recurrent UTI. Patient will take anything for pain or fever. On exam patient with mild right CVA tenderness as well as suprapubic discomfort. Recommend patient to the emergency department for further evaluation to include laboratory studies proximal, probable IV antibiotics, and imaging which may include ultrasound or CAT scan. Patient comfortable in agreement with plan. I spoke with Saige DHALIWAL in the ED, was aware patient 's coming - Differential Dx/Diagnosis Provider Diagnosis: UTI (urinary tract infection), Flank pain Discharge - Sign-Out/Discharge Documenting (check all that apply): Patient Departure All imaging exams completed and their final reports reviewed: No Studies - Discharge Plan Condition: Stable Disposition: HOME-RECOMMEND TO ED Patient Education Materials: Dysuria (ED) Referrals: No Primary Care Phys,NOPCP [Primary Care Provider] - Additional Instructions: The doctor that evaluated you today thinks that you need additional testing that can be completed the emergency department. It is recommended that you go directly to emergency department for further evaluation. This evaluation may include blood work or imaging. This testing will be directed and decided by the provider that evaluate you at the emergency department. If pain becomes worse, you feel lightheaded, you have uncontrolled vomiting, or you have any other concerns while you are being driven to emergency department as recommended to pullover and contact 911. - Billing Disposition and Condition Condition: STABLE Disposition: Home-Recommend to ED
[2018-10-27] MEDS ORDERED: Acetaminophen TAB* 325 MG PO ONE (19:00)
--- NOTE | 2018-10-30 16:50 | UC ---
- Progress Note Progress Note: Patient seen at for possible UTI. Was transferred to ED for concern of pyelonephritis. She received ceftriaxone in the ED and was discharged on Cipro. Urine culture performed in grew out Enterococcus faecalis which is insensative to ciprofloxacin. The Rocephin should have covered her for this however will have nursing call patient to see if her symptoms resolved. If still having symptoms may need to change her antibiotic. Course/Dx - Diagnoses Provider Diagnoses: UTI (urinary tract infection), Flank pain Discharge - Sign-Out/Discharge Documenting (check all that apply): Post-Discharge Follow Up All imaging exams completed and their final reports reviewed: No Studies - Discharge Plan Condition: Stable Disposition: HOME-RECOMMEND TO ED Patient Education Materials: Dysuria (ED) Referrals: No Primary Care Phys,NOPCP [Primary Care Provider] - Additional Instructions: The doctor that evaluated you today thinks that you need additional testing that can be completed the emergency department. It is recommended that you go directly to emergency department for further evaluation. This evaluation may include blood work or imaging. This testing will be directed and decided by the provider that evaluate you at the emergency department. If pain becomes worse, you feel lightheaded, you have uncontrolled vomiting, or you have any other concerns while you are being driven to emergency department as recommended to pullover and contact 911. - Billing Disposition and Condition Condition: STABLE Disposition: Home-Recommend to ED
== END 2018-10-27 19:07 | disposition home health service (06) ==
LOC: UCEAST 17:40
DX: N39.0 Urinary tract infection, site not specified (principal); B95.2 Enterococcus as the cause of diseases classified elsewhere; Z87.440 Personal history of urinary (tract) infections; R10.9 Unspecified abdominal pain; Z88.6 Allergy status to analgesic agent; Z88.1 Allergy status to other antibiotic agents; Z91.030 Bee allergy status; Z88.5 Allergy status to narcotic agent; Z91.013 Allergy to seafood; Z72.0 Tobacco use
CPT/HCPCS: 81003; 84702; 87077; 87086; 87186; 99212; A9270-GY; G0463

== ENCOUNTER 2018-10-27 19:32 | Emergency (ER) | payer BC ==
[2018-10-27 21:05] LABS: Urine Appearance Cloudy; Urine Bacteria Absent (Absent); Urine Bilirubin Negative (Negative); Urine Blood 1+ (Negative); Urine Color Yellow; Urine Glucose Negative (Negative); Urine Ketones Trace (Negative); Urine Nitrite Negative (Negative); Urine Protein Negative (Negative); Urine Red Blood Cell 1+(3-5/hpf) (Absent); Urine Specific Gravity 1.015 (1.010-1.030); Urine Squamous Epithelial Cell Present (Absent); Urine Urobilinogen Negative (Negative); Urine White Blood Cell 3+(>20/hpf) (Absent)
[2018-10-27 21:06] LABS: ABS Basophils 0.1 10^3/ul (0-0.2); ABS Eosinophils 0.1 10^3/ul (0-0.6); ABS Lymphocytes 2.4 10^3/ul (1.0-4.8); ABS Neutrophils 4.7 10^3/ul (1.5-7.7); ABS Nucleated RBC 0 10^3/ul; Eosinophil % 0.8 %; Hematocrit 38 % (33-41); Hemoglobin 12.9 g/dL (12.0-16.0); Lymphocyte % 29.2 %; Mean Corpuscular HGB Conc 34 g/dL (31-36); Mean Corpuscular Hemoglobin 31 pg (27-31); Mean Corpuscular Volume 90 fL (80-97); Mean Platelet Volume 8.1 fL (7.4-10.4); Nucleated Red Blood Cells % 0; Platelet Count 321 10^3/uL (150-450); Red Blood Count 4.22 10^6 /uL (3.70-4.87); Red Cell Distribution Width 13 % (10.5-15); White Blood Count 8.2 10^3/uL (3.5-10.8)
[2018-10-27 21:23] LABS: ALT 17 U/L (7-52); AST 20 U/L (13-39); Albumin 4.4 g/dL (3.2-5.2); Albumin/Globulin Ratio 1.3 (1-3); Alkaline Phosphatase 72 U/L (34-104); Anion Gap 9 mmol/L (2-11); Blood Urea Nitrogen 20 mg/dL (6-24); C Reactive Protein 17.67 mg/L (<8.01); CO2 Carbon Dioxide 30 mmol/L (22-32); Calcium 9.8 mg/dL (8.6-10.3); Chloride 98 mmol/L (101-111); EGFR African American 85.6 (>60); EGFR Non-African American 70.8 (>60); Globulin 3.5 g/dL (2-4); Glucose 85 mg/dL (70-100); Potassium 2.9 mmol/L (3.5-5.0); Sodium 137 mmol/L (135-145); Total Protein 7.9 g/dL (6.4-8.9)
[2018-10-27 21:29] LABS: HCG Pregnancy < 0.60 mIU/mL
[2018-10-28] MEDS ORDERED: Ondansetron INJ* 2 MG/ML VIAL IV ONE (00:17)
[2018-10-28] MEDS ORDERED: NS 0.9% 1000 ML** 1,000 ML IV ONE (00:17)
[2018-10-28] MEDS ORDERED: cefTRIAXone(*) 1 GM in NS 0.9% 50 ML* 50 ML IVPB ONE (00:17)
[2018-10-28] MEDS ORDERED: Potassium Chlor TAB* 20 MEQ TAB.ER PO ONE (00:42)
[2018-10-28] MEDS ORDERED: HYDROcodone/ACETAMIN 5-325 MG* 1 TAB PO ONE (00:42)
[2018-10-28] MEDS ORDERED: diPHENhydraMINE PO* 25 MG PO ONE (01:31)
--- NOTE | 2018-10-28 01:36 | ED ---
GI/ HPI - HPI Summary HPI Summary: 33-year-old female presents with dysuria past couple days. She states that she had a D&C week ago. She states she was having lower abdominal pain and after the D&C which has been persisting. States started having flank pain today. No fevers. She admits to some nausea no vomiting. Bleeding has slowed down. She was seen in [facility] and sent here. Has history of a stent placement on right ureteral stent. - History of Current Complaint Chief Complaint: EDFlankPain Time Seen by Provider: 10/28/18 00:09 Stated Complaint: POSS UTI/RT SIDE PAIN PER PT Hx Last Menstrual Period: ON DEPOPROVERA Pain Intensity: 6 - Allergy/Home Medications Allergies/Adverse Reactions: Allergies Allergy/AdvReac Type Severity Reaction Status Date / Time dihydroergotamine Allergy Severe See Comment Verified 10/27/18 18:10 hydromorphone [From Dilaudid] Allergy Severe See Comment Verified 10/27/18 18:10 shellfish derived Allergy Severe Anaphylatic Verified 10/27/18 18:10 Shock tramadol Allergy Severe Hallucinati Verified 10/27/18 18:10 ons neomycin Allergy Intermediate Swelling Verified 10/27/18 18:10 NSAIDS (Non-Steroidal AdvReac Severe GI Upset Verified 10/27/18 18:10 Anti-Inflamma molds Allergy Severe Anaphylatic Uncoded 10/27/18 18:10 Shock PMH/Surg Hx/FS Hx/Imm Hx Endocrine/Hematology History: Reports: Other Endocrine/Hematological Disorders - low K+, low Mg, enlarged right kidney Denies: Hx Anticoagulant Therapy, Hx Bone Marrow Disease, Hx Diabetes, Hx Sickle Cell Disease, Hx Thyroid Disease, Hx Anemia Cardiovascular History: Denies: Hx Congestive Heart Failure, Hx Deep Vein Thrombosis, Hx Hypertension , Hx Myocardial Infarction, Hx Pacemaker/ICD Respiratory History: Reports: Hx Asthma - asthmatic bronchitis, Hx Seasonal Allergies - year round - takes cetirizine Denies: Hx Chronic Obstructive Pulmonary Disease (COPD), Hx Lung Cancer, Hx Pneumonia, Hx Pulmonary Embolism GI History: Reports: Hx Gastroesophageal Reflux Disease, Other GI Disorders - HX OF CHRONIC GASTRITIS Denies: Hx Gall Bladder Disease, Hx Gastrointestinal Bleed, Hx Ulcer, Hx Urosepsis History: Reports: Hx Kidney Infection, Hx Kidney Stones, Hx Renal Disease - ? RENAL INSUFF? h/o GI bleed - NO NSAIDS, Other Problems/Disorders - HYDRONEPHROSIS Musculoskeletal History: Reports: Hx Tendonitis - HX OF- RIGHT HIP Sensory History: Reports: Hx Contacts or Glasses - GLASSES Denies: Hx Cataracts, Hx Glaucoma, Hx Hearing Aid Opthamlomology History: Reports: Hx Contacts or Glasses - GLASSES Denies: Hx Cataracts, Hx Glaucoma Neurological History: Reports: Hx Migraine - OCCASIONALLY, Other Neuro Impairments/Disorders - MENIERE'S DISEASE Denies: Hx Dementia, Hx Seizures, Hx Transient Ischemic Attacks (TIA) Psychiatric History: Reports: Hx Depression - TAKES RX Denies: Hx Anxiety, Hx Schizophrenia, Hx Bipolar Disorder - Cancer History Hx Chemotherapy: No - Surgical History Surgery Procedure, Year, and Place: UPPER PELVIC GRAFT 1989 [facility]. SCAR TISSUE REMOVED- AGE 25. LAPAROSCOPIC PYLOPLASTY 05/16/2018 [facility]. LAPAROSCOPIC PYLOPLASTY 07/04 [facility] Hx Anesthesia Reactions: No - Immunization History Date of Tetanus Vaccine: 03/2011 Date of Influenza Vaccine: 2016 Infectious Disease History: No Infectious Disease History: Reports: History Other Infectious Disease - Herpes Denies: Hx Hepatitis, Hx Human Immunodeficiency Virus (HIV), Traveled Outside the in Last 30 Days - Family History Known Family History: Positive: Hypertension, Diabetes - Social History Alcohol Use: Rare Alcohol Amount: 2 DRINKS/MONTH Hx Substance Use: No Substance Use Type: Reports: Marijuana Substance Use Comment - Amount & Last Used: rarely Hx Tobacco Use: No Smoking Status (MU): Never Smoked Tobacco Amount Used/How Often: 1/2 CIGARETTE 2 X YR SOCIALLY Have You Smoked in the Last Year: No Review of Systems Negative: Fever Negative: Chest Pain Negative: Shortness Of Breath Positive: Nausea Positive: dysuria, flank pain All Other Systems Reviewed And Are Negative: Yes Physical Exam Triage Information Reviewed: Yes Vital Signs On Initial Exam: Initial Vitals Temp Pulse Resp BP Pulse Ox 98.3 F 90 18 136/100 100 10/27/18 19:34 10/27/18 19:34 10/27/18 19:34 10/27/18 19:34 10/27/18 19:34 Vital Signs Reviewed: Yes Appearance: Positive: Well-Appearing Skin: Positive: Warm, Dry Head/Face: Positive: Normal Head/Face Inspection Eyes: Positive: Normal, Conjunctiva Clear ENT: Positive: Pharynx normal Respiratory/Lung Sounds: Positive: Clear to Auscultation, Breath Sounds Present Cardiovascular: Positive: Normal, RRR Abdomen Description: Positive: Soft, CVA Tenderness (R), Other: - tenderness in lower abd Bowel Sounds: Positive: Present Musculoskeletal: Positive: Normal Neurological: Positive: Normal Psychiatric: Positive: Normal Diagnostics - Vital Signs Vital Signs Temp Pulse Resp BP Pulse Ox 10/28/18 00:05 87 117/81 98 10/28/18 00:01 87 97 10/27/18 23:59 92 96 10/27/18 23:10 98.5 F 88 20 132/89 100 10/27/18 19:53 98.5 F 88 20 132/89 100 10/27/18 19:34 98.3 F 90 18 136/100 100 - Laboratory Lab Results: Lab Results 10/27/18 10/27/18 10/27/18 Range/Units 19:59 20:52 20:52 WBC 8.2 (3.5-10.8) 10^3/uL RBC 4.22 (3.70-4.87) 10^6 /uL Hgb 12.9 (12.0-16.0) g/dL Hct 38 (33-41) % MCV 90 (80-97) fL MCH 31 (27-31) pg MCHC 34 (31-36) g/dL RDW 13 (10.5-15) % Plt Count 321 (150-450) 10^3/uL MPV 8.1 (7.4-10.4) fL Neut % (Auto) 57.1 % Lymph % (Auto) 29.2 % Prairie % (Auto) 12.2 % Eos % (Auto) 0.8 % Baso % (Auto) 0.7 % Absolute Neuts (auto) 4.7 (1.5-7.7) 10^3/ul Absolute Lymphs (auto) 2.4 (1.0-4.8) 10^3/ul Absolute Monos (auto) 1.0 H (0-0.8) 10^3/ul Absolute Eos (auto) 0.1 (0-0.6) 10^3/ul Absolute Basos (auto) 0.1 (0-0.2) 10^3/ul Absolute Nucleated RBC 0 10^3/ul Nucleated RBC % 0 Sodium 137 (135-145) mmol/L Potassium 2.9 L (3.5-5.0) mmol/L Chloride 98 L (101-111) mmol/L Carbon Dioxide 30 (22-32) mmol/L Anion Gap 9 (2-11) mmol/L BUN 20 (6-24) mg/dL Creatinine 0.91 (0.51-0.95) mg/dL Est GFR ( Amer) 85.6 (>60) Est GFR (Non-Af Amer) 70.8 (>60) BUN/Creatinine Ratio 22.0 H (8-20) Glucose 85 (70-100) mg/dL Lactic Acid (0.5-2.0) mmol/L Calcium 9.8 (8.6-10.3) mg/dL Total Bilirubin 0.40 (0.2-1.0) mg/dL AST 20 (13-39) U/L ALT 17 (7-52) U/L Alkaline Phosphatase 72 (34-104) U/L C-Reactive Protein 17.67 H (<8.01) mg/L Total Protein 7.9 (6.4-8.9) g/dL Albumin 4.4 (3.2-5.2) g/dL Globulin 3.5 (2-4) g/dL Albumin/Globulin Ratio 1.3 (1-3) Lipase 24 (11.0-82.0) U/L Beta HCG, Quant < 0.60 mIU/mL Urine Color Yellow Urine Appearance Cloudy Urine pH 6.0 (5-9) Ur Specific Homer 1.015 (1.010-1.030) Urine Protein Negative (Negative) Urine Ketones Trace A (Negative) Urine Blood 1+ A (Negative) Urine Nitrate Negative (Negative) Urine Bilirubin Negative (Negative) Urine Urobilinogen Negative (Negative) Ur Leukocyte Esterase 3+ A (Negative) Urine WBC (Auto) 3+(>20/hpf) A (Absent) Urine RBC (Auto) 1+(3-5/hpf) A (Absent) Ur Squamous Epith Cells Present A (Absent) Urine Bacteria Absent (Absent) Hyaline Casts Present A (Absent) Urine Glucose Negative (Negative) 10/27/18 Range/Units 20:52 WBC (3.5-10.8) 10^3/uL RBC (3.70-4.87) 10^6 /uL Hgb (12.0-16.0) g/dL Hct (33-41) % MCV (80-97) fL MCH (27-31) pg MCHC (31-36) g/dL RDW (10.5-15) % Plt Count (150-450) 10^3/uL MPV (7.4-10.4) fL Neut % (Auto) % Lymph % (Auto) % Prairie % (Auto) % Eos % (Auto) % Baso % (Auto) % Absolute Neuts (auto) (1.5-7.7) 10^3/ul Absolute Lymphs (auto) (1.0-4.8) 10^3/ul Absolute Monos (auto) (0-0.8) 10^3/ul Absolute Eos (auto) (0-0.6) 10^3/ul Absolute Basos (auto) (0-0.2) 10^3/ul Absolute Nucleated RBC 10^3/ul Nucleated RBC % Sodium (135-145) mmol/L Potassium (3.5-5.0) mmol/L Chloride (101-111) mmol/L Carbon Dioxide (22-32) mmol/L Anion Gap (2-11) mmol/L BUN (6-24) mg/dL Creatinine (0.51-0.95) mg/dL Est GFR ( Amer) (>60) Est GFR (Non-Af Amer) (>60) BUN/Creatinine Ratio (8-20) Glucose (70-100) mg/dL Lactic Acid 0.6 (0.5-2.0) mmol/L Calcium (8.6-10.3) mg/dL Total Bilirubin (0.2-1.0) mg/dL AST (13-39) U/L ALT (7-52) U/L Alkaline Phosphatase (34-104) U/L C-Reactive Protein (<8.01) mg/L Total Protein (6.4-8.9) g/dL Albumin (3.2-5.2) g/dL Globulin (2-4) g/dL Albumin/Globulin Ratio (1-3) Lipase (11.0-82.0) U/L Beta HCG, Quant mIU/mL Urine Color Urine Appearance Urine pH (5-9) Ur Specific Homer (1.010-1.030) Urine Protein (Negative) Urine Ketones (Negative) Urine Blood (Negative) Urine Nitrate (Negative) Urine Bilirubin (Negative) Urine Urobilinogen (Negative) Ur Leukocyte Esterase (Negative) Urine WBC (Auto) (Absent) Urine RBC (Auto) (Absent) Ur Squamous Epith Cells (Absent) Urine Bacteria (Absent) Hyaline Casts (Absent) Urine Glucose (Negative) Result Diagrams: 10/27/18 20:52 10/27/18 20:52 Lab Statement: Any lab studies that have been ordered have been reviewed, and results considered in the medical decision making process. Re-Evaluation - Re-Evaluation First Eval Re-Evaluation Time: 01:33 Comment: states has a lump in throat, lungs CTA, pharynx normal. no nausea Second Eval Re-Evaluation Time: 02:09 Change: Improved Comment: lump throat resolved after benadryl GIGU Course/Dx - Course Course Of Treatment: 33-year-old female presents with dysuria past couple days. She states that she had a D&C week ago. She states she was having lower abdominal pain and after the D&C which has been persisting. States started having flank pain today. No fevers. She admits to some nausea no vomiting. Bleeding has slowed down. She was seen in [facility] and sent here. Has history of a stent placement on right ureteral stent. On exam tenderness over right flank. Tenderness lower abdomen. wbc normal. Urine shows a UTI. Stent placement appears in place on x-ray. Gave dosed Rocephin. We'll discharge with Cipro and Zofran as needed for nausea. Told to return develop any fevers. Patient understands agrees with plan. - Diagnoses Differential Diagnoses - Female: Pyelonephritis, Urinary Tract Infection, Ureteral Calculi Provider Diagnoses: Complicated UTI (urinary tract infection) Discharge - Sign-Out/Discharge Documenting (check all that apply): Patient Departure Patient Received Moderate/Deep Sedation with Procedure: No - Discharge Plan Condition: Good Disposition: HOME Prescriptions: Ciprofloxacin TAB* [Cipro 500 MG TAB*] 500 mg PO BID #14 tab Ondansetron ODT TAB* [Zofran 4 MG Odt TAB*] 4 mg PO Q6H PRN #9 tab.odt PRN Reason: Nausea Patient Education Materials: Urinary Tract Infection in Women (ED) Referrals: No Primary Care Phys,NOPCP [Primary Care Provider] - Additional Instructions: take cipro twice a day for 7 days Take zofran as needed every 6 hours for nausea Drink plenty of fluids take tyenlol as needed for pain Follow up with primary in 7 days Return to ED if develop fever or any new or worsening symptoms - Billing Disposition and Condition Condition: GOOD Disposition: Home
[2018-10-28 02:48] VITALS: BP 122/67
== END 2018-10-28 02:48 | disposition home or self-care (01) ==
LOC: ED 19:32
DX: N39.0 Urinary tract infection, site not specified (principal); E87.6 Hypokalemia; N28.81 Hypertrophy of kidney; J45.909 Unspecified asthma, uncomplicated; F32.9 Major depressive disorder, single episode, unspecified; Z88.8 Allergy status to other drugs, medicaments and biological substances; Z88.6 Allergy status to analgesic agent; Z98.890 Other specified postprocedural states; Z96.0 Presence of urogenital implants
CPT/HCPCS: 36415; 74018; 80053; 81003; 81015; 83605; 83690; 84702; 85025; 86140; 96365; 96375; 99284; A9270-GY; J0696; J2405

== ENCOUNTER 2018-11-06 18:15 | Emergency (ER) | payer BC ==
[2018-11-06] MEDS ORDERED: Ondansetron INJ* 2 MG/ML VIAL IV ONE (18:45)
[2018-11-06] MEDS ORDERED: NS 0.9% 1000 ML** 1,000 ML IV ONE ×2 (18:45→19:33)
[2018-11-06] MEDS ORDERED: Morphine 4 MG/ML VIAL (1 ml) 4 MG/ML VIAL IV ONE (18:48)
[2018-11-06 19:05] LABS: ABS Basophils 0.1 10^3/ul (0-0.2); ABS Eosinophils 0.1 10^3/ul (0-0.6); ABS Lymphocytes 1.9 10^3/ul (1.0-4.8); ABS Monocytes 1.1 10^3/ul (0-0.8); ABS Neutrophils 4.5 10^3/ul (1.5-7.7); ABS Nucleated RBC 0 10^3/ul; Hematocrit 39 % (33-41); Hemoglobin 12.9 g/dL (12.0-16.0); Lymphocyte % 25.3 %; Mean Corpuscular HGB Conc 33 g/dL (31-36); Mean Corpuscular Hemoglobin 30 pg (27-31); Mean Corpuscular Volume 90 fL (80-97); Mean Platelet Volume 8.4 fL (7.4-10.4); Nucleated Red Blood Cells % 0.3; Platelet Count 280 10^3/uL (150-450); Red Blood Count 4.31 10^6 /uL (3.70-4.87); Red Cell Distribution Width 13 % (10.5-15); White Blood Count 7.7 10^3/uL (3.5-10.8)
[2018-11-06 19:09] LABS: Urine Appearance Cloudy; Urine Bacteria Absent (Absent); Urine Bilirubin Negative (Negative); Urine Blood 2+ (Negative); Urine Color Yellow; Urine Glucose Negative (Negative); Urine Ketones Negative (Negative); Urine Nitrite Negative (Negative); Urine Protein 1+(30 mg/dL) (Negative); Urine Red Blood Cell 3+(>10/hpf) (Absent); Urine Specific Gravity 1.015 (1.010-1.030); Urine Squamous Epithelial Cell Present (Absent); Urine Urobilinogen Negative (Negative); Urine White Blood Cell Trace(0-5/hpf) (Absent)
--- NOTE | 2018-11-06 19:14 | ED ---
GI/ HPI - HPI Summary HPI Summary: 33-year-old female presents with nausea and vomiting today. She states that she feels shortness of breath. she was treated with augmentin for a uti and just finished yesterday. She states UTI symptoms have been resolving. She says she's been having flank pain. No cough or chest pain. She does have family history of blood clots. She denies any recent travel. no swelling in legs. She has been taking Tylenol for the pain. She states she is also been having vaginal bleeding since her D&C but is only mild. She denies any dizziness. She denies any diarrhea or constipation. She states she is not able to keep anything down. She admits to diffuse abdominal pain. - History of Current Complaint Chief Complaint: EDNauseaVomitDiarrh Time Seen by Provider: 11/06/18 18:28 Stated Complaint: POSS UTI/ BODY ACHES PER PT Hx Last Menstrual Period: ON DEPOPROVERA Pain Intensity: 8 - Allergy/Home Medications Allergies/Adverse Reactions: Allergies Allergy/AdvReac Type Severity Reaction Status Date / Time dihydroergotamine Allergy Severe See Comment Verified 11/06/18 18:20 hydromorphone [From Dilaudid] Allergy Severe See Comment Verified 11/06/18 18:20 shellfish derived Allergy Severe Anaphylatic Verified 11/06/18 18:20 Shock tramadol Allergy Severe Hallucinati Verified 11/06/18 18:20 ons neomycin Allergy Intermediate Swelling Verified 11/06/18 18:20 NSAIDS (Non-Steroidal AdvReac Severe GI Upset Verified 11/06/18 18:20 Anti-Inflamma molds Allergy Severe Anaphylatic Uncoded 11/06/18 18:20 Shock PMH/Surg Hx/FS Hx/Imm Hx Endocrine/Hematology History: Reports: Other Endocrine/Hematological Disorders - low K+, low Mg, enlarged right kidney Denies: Hx Anticoagulant Therapy, Hx Bone Marrow Disease, Hx Diabetes, Hx Sickle Cell Disease, Hx Thyroid Disease, Hx Anemia Cardiovascular History: Denies: Hx Congestive Heart Failure, Hx Deep Vein Thrombosis, Hx Hypertension , Hx Myocardial Infarction, Hx Pacemaker/ICD Respiratory History: Reports: Hx Asthma - asthmatic bronchitis, Hx Seasonal Allergies - year round - takes cetirizine Denies: Hx Chronic Obstructive Pulmonary Disease (COPD), Hx Lung Cancer, Hx Pneumonia, Hx Pulmonary Embolism GI History: Reports: Hx Gastroesophageal Reflux Disease, Other GI Disorders - HX OF CHRONIC GASTRITIS Denies: Hx Gall Bladder Disease, Hx Gastrointestinal Bleed, Hx Ulcer, Hx Urosepsis History: Reports: Hx Kidney Infection, Hx Kidney Stones, Hx Renal Disease - ? RENAL INSUFF? h/o GI bleed - NO NSAIDS, Other Problems/Disorders - HYDRONEPHROSIS Musculoskeletal History: Reports: Hx Tendonitis - HX OF- RIGHT HIP Sensory History: Reports: Hx Contacts or Glasses - GLASSES Denies: Hx Cataracts, Hx Glaucoma, Hx Hearing Aid Opthamlomology History: Reports: Hx Contacts or Glasses - GLASSES Denies: Hx Cataracts, Hx Glaucoma Neurological History: Reports: Hx Migraine - OCCASIONALLY, Other Neuro Impairments/Disorders - MENIERE'S DISEASE Denies: Hx Dementia, Hx Seizures, Hx Transient Ischemic Attacks (TIA) Psychiatric History: Reports: Hx Depression - TAKES RX Denies: Hx Anxiety, Hx Schizophrenia, Hx Bipolar Disorder - Cancer History Hx Chemotherapy: No - Surgical History Surgery Procedure, Year, and Place: UPPER PELVIC GRAFT [address] [place] [address]. SCAR TISSUE REMOVED- AGE 25. LAPAROSCOPIC PYLOPLASTY 05/16/2018 [facility]. LAPAROSCOPIC PYLOPLASTY 07/04 [facility] Hx Anesthesia Reactions: No - Immunization History Date of Tetanus Vaccine: 03/2011 Date of Influenza Vaccine: 2016 Infectious Disease History: No Infectious Disease History: Reports: History Other Infectious Disease - Herpes Denies: Hx Hepatitis, Hx Human Immunodeficiency Virus (HIV), Traveled Outside the in Last 30 Days - Family History Known Family History: Positive: Hypertension, Diabetes - Social History Alcohol Use: Rare Alcohol Amount: 2 DRINKS/MONTH Hx Substance Use: No Substance Use Type: Reports: Marijuana Substance Use Comment - Amount & Last Used: rarely Hx Tobacco Use: No Smoking Status (MU): Never Smoked Tobacco Amount Used/How Often: 1/2 CIGARETTE 2 X YR SOCIALLY Have You Smoked in the Last Year: No Review of Systems Negative: Fever Negative: Chest Pain Positive: Shortness Of Breath. Negative: Cough Positive: Abdominal Pain All Other Systems Reviewed And Are Negative: Yes Physical Exam Triage Information Reviewed: Yes Vital Signs On Initial Exam: Initial Vitals Temp Pulse Resp BP Pulse Ox 99.2 F 97 18 149/93 98 11/06/18 18:16 11/06/18 18:16 11/06/18 18:16 11/06/18 18:16 11/06/18 18:16 Vital Signs Reviewed: Yes Appearance: Positive: Well-Appearing Skin: Positive: Warm, Dry Head/Face: Positive: Normal Head/Face Inspection Eyes: Positive: Normal, EOMI, CAPO, Conjunctiva Clear ENT: Positive: Normal ENT inspection, Pharynx normal, TMs normal Respiratory/Lung Sounds: Positive: Clear to Auscultation, Breath Sounds Present Cardiovascular: Positive: Normal, RRR Abdomen Description: Positive: Soft, CVA Tenderness (R), CVA Tenderness (L), Other: - tenderness diffuse abd Bowel Sounds: Positive: Present Musculoskeletal: Positive: Normal Neurological: Positive: Normal Psychiatric: Positive: Normal Diagnostics - Vital Signs Vital Signs Temp Pulse Resp BP Pulse Ox 11/06/18 18:58 16 11/06/18 18:38 92 133/101 97 11/06/18 18:37 97 96 11/06/18 18:16 99.2 F 97 18 149/93 98 - Laboratory Lab Results: Lab Results 11/06/18 Range/Units 18:57 WBC 7.7 (3.5-10.8) 10^3/uL RBC 4.31 (3.70-4.87) 10^6 /uL Hgb 12.9 (12.0-16.0) g/dL Hct 39 (33-41) % MCV 90 (80-97) fL MCH 30 (27-31) pg MCHC 33 (31-36) g/dL RDW 13 (10.5-15) % Plt Count 280 (150-450) 10^3/uL MPV 8.4 (7.4-10.4) fL Neut % (Auto) 58.3 % Lymph % (Auto) 25.3 % [place] % (Auto) 14.3 % Eos % (Auto) 1.0 % Baso % (Auto) 1.1 % Absolute Neuts (auto) 4.5 (1.5-7.7) 10^3/ul Absolute Lymphs (auto) 1.9 (1.0-4.8) 10^3/ul Absolute Monos (auto) 1.1 H (0-0.8) 10^3/ul Absolute Eos (auto) 0.1 (0-0.6) 10^3/ul Absolute Basos (auto) 0.1 (0-0.2) 10^3/ul Absolute Nucleated RBC 0 10^3/ul Nucleated RBC % 0.3 Result Diagrams: 11/06/18 18:57 11/06/18 18:57 Lab Statement: Any lab studies that have been ordered have been reviewed, and results considered in the medical decision making process. - CT abd CT Interpretation Completed By: Radiologist Summary of CT Findings: IMPRESSION: 1. Right ureteral stent now present. 2. Continued dilatation of the right renal pelvis and calyces without. appreciable change from comparison study. - Ultrasound No standard instances Ultrasound Interpretation Completed By: Radiologist Summary of Ultrasound Findings: IMPRESSION: 1. Right sided hydronephrosis with stent present. 2. Normal left kidney. - EKG No standard instances Cardiac Rate: NL EKG Rhythm: Sinus Rhythm Summary of EKG Findings: sinus rhythm Re-Evaluation - Re-Evaluation First Eval Re-Evaluation Time: 20:10 Change: Improved Comment: still has flank pain but better Second Eval Comment: discussed results GIGU Course/Dx - Course Course Of Treatment: 33-year-old female presents with nausea and vomiting today. She states that she feels shortness of breath. she was treated with augmentin for a uti and just finished yesterday. She states UTI symptoms have been resolving. She says she's been having flank pain. No cough or chest pain. She does have family history of blood clots. She denies any recent travel. no swelling in legs. She has been taking Tylenol for the pain. She states she is also been having vaginal bleeding since her D&C but is only mild. She denies any dizziness. She denies any diarrhea or constipation. She states she is not able to keep anything down. She admits to diffuse abdominal pain. on exam tenderness greatest on right flank, mild diffuse abd. tenderness. wbc normal. k is 2.8 which it is normally low. renal ultrasound shows hydronephrosis. d-dimer neg. urine likely a contaminant. will wait for final culture. ct abd no acute findings. gave dose of potassium in ED. discussed could be viral infection. patient has zofran at home. will call if need to add antibiotic for uti. patient understand and agrees with plan. - Diagnoses Differential Diagnoses - Female: Renal Calculi, Urinary Tract Infection, Other - pe Provider Diagnoses: Hypokalemia, Nausea & vomiting, Flank pain, Shortness of breath Discharge - Sign-Out/Discharge Documenting (check all that apply): Patient Departure Patient Received Moderate/Deep Sedation with Procedure: No - Discharge Plan Condition: Good Disposition: HOME Patient Education Materials: Acute Nausea and Vomiting (ED) Referrals: Care [facility] [Outside] Additional Instructions: Can take Zofran every 6 hours as needed for nausea Drink small amounts of fluid as tolerated When able to eat follow BRAT diet: Bananas, rice, applesauce, toast Take Tylenol for pain as needed every 6 hours Follow up with primary within 5 days Return to ED if develop any new or worsening symptoms - Billing Disposition and Condition Condition: GOOD Disposition: Home
[2018-11-06 19:24] LABS: ALT 19 U/L (7-52); AST 22 U/L (13-39); Albumin 4.4 g/dL (3.2-5.2); Albumin/Globulin Ratio 1.3 (1-3); Alkaline Phosphatase 62 U/L (34-104); Anion Gap 11 mmol/L (2-11); BUN/Creatinine Ratio 25.8 (8-20); Blood Urea Nitrogen 25 mg/dL (6-24); CO2 Carbon Dioxide 26 mmol/L (22-32); Calcium 9.7 mg/dL (8.6-10.3); Chloride 99 mmol/L (101-111); EGFR African American 79.5 (>60); EGFR Non-African American 65.7 (>60); Globulin 3.4 g/dL (2-4); Glucose 87 mg/dL (70-100); Potassium 2.8 mmol/L (3.5-5.0); Sodium 136 mmol/L (135-145); Total Protein 7.8 g/dL (6.4-8.9)
[2018-11-06 19:29] LABS: Influenza A Molecular NEGATIVE (Negative); Influenza B Molecular NEGATIVE (Negative)
[2018-11-06 19:30] LABS: HCG Pregnancy < 0.60 mIU/mL
[2018-11-06] MEDS ORDERED: KCL 20 MEQ/100 ML IVPREMIX* 20 MEQ/100 ML BAG IV ONE (19:33)
[2018-11-06 19:54] LABS: Magnesium 1.7 mg/dL (1.9-2.7)
[2018-11-06] MEDS ORDERED: Ketorolac INJ* 30 MG/ML 1 ML VIAL IV PUSH ONE (21:39)
[2018-11-06 23:07] VITALS: BP 116/68
== END 2018-11-06 23:09 | disposition home or self-care (01) ==
LOC: ED 18:15
DX: E87.6 Hypokalemia (principal); R11.2 Nausea with vomiting, unspecified; R10.9 Unspecified abdominal pain; R06.02 Shortness of breath; E83.42 Hypomagnesemia; N28.81 Hypertrophy of kidney; N13.30 Unspecified hydronephrosis; R94.31 Abnormal electrocardiogram [ECG] [EKG]; J45.909 Unspecified asthma, uncomplicated; K21.9 Gastro-esophageal reflux disease without esophagitis; K29.50 Unspecified chronic gastritis without bleeding; H81.09 Meniere's disease, unspecified ear; F32.9 Major depressive disorder, single episode, unspecified; Z88.8 Allergy status to other drugs, medicaments and biological substances; Z88.5 Allergy status to narcotic agent; Z88.3 Allergy status to other anti-infective agents; Z88.6 Allergy status to analgesic agent; Z79.899 Other long term (current) drug therapy; Z72.0 Tobacco use; Z96.0 Presence of urogenital implants
CPT/HCPCS: 36415; 74176; 76775; 80053; 81003; 81015; 83605; 83690; 83735; 84484; 84702; 85025; 85379; 86140; 87086; 93005; 96361; 96374; 96375; 99284; J1885; J2270; J2405; J3480

== ENCOUNTER 2019-01-25 16:19 | Emergency (ER) | payer BC ==
[2019-01-25 17:00] LABS: Urine Appearance Clear; Urine Bacteria Absent (Absent); Urine Bilirubin Negative (Negative); Urine Blood 3+ (Negative); Urine Color Straw; Urine Glucose Negative (Negative); Urine Ketones Negative (Negative); Urine Nitrite Negative (Negative); Urine Protein 1+(30 mg/dL) (Negative); Urine Red Blood Cell 3+(>10/hpf) (Absent); Urine Specific Gravity 1.009 (1.010-1.030); Urine Squamous Epithelial Cell Present (Absent); Urine Urobilinogen Negative (Negative); Urine White Blood Cell 1+(6-10/hpf) (Absent)
[2019-01-25 17:20] LABS: ABS Basophils 0.1 10^3/ul (0-0.2); ABS Eosinophils 0.1 10^3/ul (0-0.6); ABS Lymphocytes 1.9 10^3/ul (1.0-4.8); ABS Neutrophils 4.6 10^3/ul (1.5-7.7); Eosinophil % 1.1 %; Hematocrit 40 % (35-47); Hemoglobin 13.4 g/dL (12.0-16.0); Lymphocyte % 24.3 %; Mean Corpuscular HGB Conc 34 g/dL (31-36); Mean Corpuscular Hemoglobin 31 pg (27-31); Mean Corpuscular Volume 90 fL (80-97); Platelet Count 286 10^3/uL (150-450); Red Blood Count 4.39 10^6 /uL (3.70-4.87); Red Cell Distribution Width 14 % (10-15); White Blood Count 7.6 10^3/uL (3.5-10.8)
[2019-01-25 17:37] LABS: Albumin 4.7 g/dL (3.2-5.2); Albumin/Globulin Ratio 1.3 (1-3); BUN/Creatinine Ratio 17.9 (8-20); C Reactive Protein 10.56 mg/L (<8.01); Calcium 9.8 mg/dL (8.6-10.3); EGFR African American 81.5 (>60); EGFR Non-African American 67.3 (>60); Globulin 3.5 g/dL (2-4); Potassium 2.8 mmol/L (3.5-5.0); Total Bilirubin 0.5 mg/dL (0.2-1.0); Total Protein 8.2 g/dL (6.4-8.9)
[2019-01-25] MEDS ORDERED: Ondansetron INJ* 2 MG/ML VIAL IV ONE ×2 (18:46→21:37)
[2019-01-25] MEDS ORDERED: Morphine 4 MG/ML VIAL (1 ml) 4 MG/ML VIAL IV ONE ×2 (18:46→21:37)
--- NOTE | 2019-01-25 19:53 | ED ---
GI/ HPI - HPI Summary HPI Summary: Patient complains of right-sided flank pain, nausea vomiting, increased urinary urge and frequency starting today. History of ureteral stent placed 2 weeks ago on right side by Dr. Cook in [place]. Denies fever, cough, sore throat , CP, SOB, diarrhea, abdominal pain, change in BM, vaginal pain, discharge or bleeding. History of pyeloplasty 2018. - History of Current Complaint Chief Complaint: EDFlankPain Time Seen by Provider: 01/25/19 18:12 Stated Complaint: FLANK PAIN, NAUSEA, VOMITING PER PT Hx Obtained From: Patient Hx Last Menstrual Period: ON DEPOPROVERA Onset/Duration: Started Hours Ago Timing: Constant Severity: Severe Current Severity: Severe Pain Intensity: 10 Location of Pain: Flank Pain Characteristics: Sharp, Aching Pain Radiates to: Flank Associated Signs and Symptoms: Positive: Nausea, Vomiting, Flank Pain Aggravating Factor(s): Movement Alleviating Factor(s): Nothing - Allergy/Home Medications Allergies/Adverse Reactions: Allergies Allergy/AdvReac Type Severity Reaction Status Date / Time dihydroergotamine Allergy Severe See Comment Verified 11/06/18 18:20 hydromorphone [From Dilaudid] Allergy Severe See Comment Verified 11/06/18 18:20 shellfish derived Allergy Severe Anaphylatic Verified 11/06/18 18:20 Shock tramadol Allergy Severe Hallucinati Verified 11/06/18 18:20 ons neomycin Allergy Intermediate Swelling Verified 11/06/18 18:20 NSAIDS (Non-Steroidal AdvReac Severe GI Upset Verified 11/06/18 18:20 Anti-Inflamma molds Allergy Severe Anaphylatic Uncoded 11/06/18 18:20 Shock PMH/Surg Hx/FS Hx/Imm Hx Endocrine/Hematology History: Reports: Other Endocrine/Hematological Disorders - low K+, low Mg, enlarged right kidney Denies: Hx Anticoagulant Therapy, Hx Bone Marrow Disease, Hx Diabetes, Hx Sickle Cell Disease, Hx Thyroid Disease, Hx Anemia Cardiovascular History: Denies: Hx Congestive Heart Failure, Hx Deep Vein Thrombosis, Hx Hypertension , Hx Myocardial Infarction, Hx Pacemaker/ICD Respiratory History: Reports: Hx Asthma - asthmatic bronchitis, Hx Seasonal Allergies - year round - takes cetirizine Denies: Hx Chronic Obstructive Pulmonary Disease (COPD), Hx Lung Cancer, Hx Pneumonia, Hx Pulmonary Embolism GI History: Reports: Hx Gastroesophageal Reflux Disease, Other GI Disorders - HX OF CHRONIC GASTRITIS Denies: Hx Gall Bladder Disease, Hx Gastrointestinal Bleed, Hx Ulcer, Hx Urosepsis History: Reports: Hx Kidney Infection, Hx Kidney Stones, Hx Renal Disease - ? RENAL INSUFF? h/o GI bleed - NO NSAIDS, Other Problems/Disorders - HYDRONEPHROSIS Musculoskeletal History: Reports: Hx Tendonitis - HX OF- RIGHT HIP Sensory History: Reports: Hx Contacts or Glasses - GLASSES Denies: Hx Cataracts, Hx Glaucoma, Hx Hearing Aid Opthamlomology History: Reports: Hx Contacts or Glasses - GLASSES Denies: Hx Cataracts, Hx Glaucoma Neurological History: Reports: Hx Migraine - OCCASIONALLY, Other Neuro Impairments/Disorders - MENIERE'S DISEASE Denies: Hx Dementia, Hx Seizures, Hx Transient Ischemic Attacks (TIA) Psychiatric History: Reports: Hx Depression - TAKES RX Denies: Hx Anxiety, Hx Schizophrenia, Hx Bipolar Disorder - Cancer History Hx Chemotherapy: No - Surgical History Surgery Procedure, Year, and Place: UPPER PELVIC GRAFT [address] [place] [address]. SCAR TISSUE REMOVED- AGE 25. LAPAROSCOPIC PYLOPLASTY 05/16/2018 [facility]. LAPAROSCOPIC PYLOPLASTY 07/04 [facility] Hx Anesthesia Reactions: No - Immunization History Date of Tetanus Vaccine: 03/2011 Date of Influenza Vaccine: 2016 Infectious Disease History: No Infectious Disease History: Reports: History Other Infectious Disease - Herpes Denies: Hx Hepatitis, Hx Human Immunodeficiency Virus (HIV), Traveled Outside the in Last 30 Days - Family History Known Family History: Positive: Hypertension, Diabetes - Social History Alcohol Use: Rare Alcohol Amount: 2 DRINKS/MONTH Hx Substance Use: No Substance Use Type: Reports: Marijuana Substance Use Comment - Amount & Last Used: rarely Hx Tobacco Use: No Smoking Status (MU): Never Smoked Tobacco Amount Used/How Often: 1/2 CIGARETTE 2 X YR SOCIALLY Have You Smoked in the Last Year: No Review of Systems Constitutional: Negative Eyes: Negative ENT: Negative Cardiovascular: Negative Respiratory: Negative Gastrointestinal: Negative Positive: dysuria, frequency, flank pain, urgency Musculoskeletal: Negative Skin: Negative Neurological: Negative Psychological: Normal All Other Systems Reviewed And Are Negative: Yes Physical Exam - Summary Physical Exam Summary: Abdomen soft nontender. Tenderness over the right flank. Triage Information Reviewed: Yes Vital Signs On Initial Exam: Initial Vitals Temp Pulse Resp BP Pulse Ox 97.5 F 98 18 130/91 97 01/25/19 16:35 07/11/19 16:35 01/25/19 16:35 01/25/19 16:35 01/25/19 16:35 Vital Signs Reviewed: Yes Appearance: Positive: Well-Appearing Skin: Positive: Warm Head/Face: Positive: Normal Head/Face Inspection Eyes: Positive: Normal Neck: Positive: Supple Respiratory/Lung Sounds: Positive: Clear to Auscultation Cardiovascular: Positive: Normal Abdomen Description: Positive: Nontender Musculoskeletal: Positive: Normal Neurological: Positive: Normal Psychiatric: Positive: Normal AVPU Assessment: Alert - Pieter Coma Scale Best Eye Response: 4 - Spontaneous Best Motor Response: 6 - Obeys Commands Best Verbal Response: 5 - Oriented Coma Scale Total: 15 Diagnostics - Vital Signs Vital Signs Temp Pulse Resp BP Pulse Ox 01/25/19 19:38 16 01/25/19 16:35 97.5 F 98 18 130/91 97 - Laboratory Lab Results: Lab Results 01/25/19 01/25/19 01/25/19 Range/Units 16:49 17:10 17:10 WBC 7.6 (3.5-10.8) 10^3/uL RBC 4.39 (3.70-4.87) 10^6 /uL Hgb 13.4 (12.0-16.0) g/dL Hct 40 (35-47) % MCV 90 (80-97) fL MCH 31 (27-31) pg MCHC 34 (31-36) g/dL RDW 14 (10-15) % Plt Count 286 (150-450) 10^3/uL MPV 8.0 (7.4-10.4) fL Neut % (Auto) 60.3 % Lymph % (Auto) 24.3 % [place] % (Auto) 13.2 % Eos % (Auto) 1.1 % Baso % (Auto) 1.1 % Absolute Neuts (auto) 4.6 (1.5-7.7) 10^3/ul Absolute Lymphs (auto) 1.9 (1.0-4.8) 10^3/ul Absolute Monos (auto) 1.0 H (0-0.8) 10^3/ul Absolute Eos (auto) 0.1 (0-0.6) 10^3/ul Absolute Basos (auto) 0.1 (0-0.2) 10^3/ul Absolute Nucleated RBC 0.0 10^3/ul Nucleated RBC % 0.0 Sodium 136 (135-145) mmol/L Potassium 2.8 L (3.5-5.0) mmol/L Chloride 99 L (101-111) mmol/L Carbon Dioxide 26 (22-32) mmol/L Anion Gap 11 (2-11) mmol/L BUN 17 (6-24) mg/dL Creatinine 0.95 (0.51-0.95) mg/dL Est GFR ( Amer) 81.5 (>60) Est GFR (Non-Af Amer) 67.3 (>60) BUN/Creatinine Ratio 17.9 (8-20) Glucose 82 (70-100) mg/dL Lactic Acid (0.5-2.0) mmol/L Calcium 9.8 (8.6-10.3) mg/dL Total Bilirubin 0.50 (0.2-1.0) mg/dL AST 22 (13-39) U/L ALT 18 (7-52) U/L Alkaline Phosphatase 81 (34-104) U/L C-Reactive Protein 10.56 H (<8.01) mg/L Total Protein 8.2 (6.4-8.9) g/dL Albumin 4.7 (3.2-5.2) g/dL Globulin 3.5 (2-4) g/dL Albumin/Globulin Ratio 1.3 (1-3) Lipase 15 (11.0-82.0) U/L Urine Color Straw Urine Appearance Clear Urine pH 6.0 (5-9) Ur Specific [place] 1.009 L (1.010-1.030) Urine Protein 1+(30 mg/dl) A (Negative) Urine Ketones Negative (Negative) Urine Blood 3+ A (Negative) Urine Nitrate Negative (Negative) Urine Bilirubin Negative (Negative) Urine Urobilinogen Negative (Negative) Ur Leukocyte Esterase Trace A (Negative) Urine WBC (Auto) 1+(6-10/hpf) A (Absent) Urine RBC (Auto) 3+(>10/hpf) A (Absent) Ur Squamous Epith Cells Present A (Absent) Urine Bacteria Absent (Absent) Urine Glucose Negative (Negative) 01/25/19 Range/Units 17:10 WBC (3.5-10.8) 10^3/uL RBC (3.70-4.87) 10^6 /uL Hgb (12.0-16.0) g/dL Hct (35-47) % MCV (80-97) fL MCH (27-31) pg MCHC (31-36) g/dL RDW (10-15) % Plt Count (150-450) 10^3/uL MPV (7.4-10.4) fL Neut % (Auto) % Lymph % (Auto) % [place] % (Auto) % Eos % (Auto) % Baso % (Auto) % Absolute Neuts (auto) (1.5-7.7) 10^3/ul Absolute Lymphs (auto) (1.0-4.8) 10^3/ul Absolute Monos (auto) (0-0.8) 10^3/ul Absolute Eos (auto) (0-0.6) 10^3/ul Absolute Basos (auto) (0-0.2) 10^3/ul Absolute Nucleated RBC 10^3/ul Nucleated RBC % Sodium (135-145) mmol/L Potassium (3.5-5.0) mmol/L Chloride (101-111) mmol/L Carbon Dioxide (22-32) mmol/L Anion Gap (2-11) mmol/L BUN (6-24) mg/dL Creatinine (0.51-0.95) mg/dL Est GFR ( Amer) (>60) Est GFR (Non-Af Amer) (>60) BUN/Creatinine Ratio (8-20) Glucose (70-100) mg/dL Lactic Acid 0.8 (0.5-2.0) mmol/L Calcium (8.6-10.3) mg/dL Total Bilirubin (0.2-1.0) mg/dL AST (13-39) U/L ALT (7-52) U/L Alkaline Phosphatase (34-104) U/L C-Reactive Protein (<8.01) mg/L Total Protein (6.4-8.9) g/dL Albumin (3.2-5.2) g/dL Globulin (2-4) g/dL Albumin/Globulin Ratio (1-3) Lipase (11.0-82.0) U/L Urine Color Urine Appearance Urine pH (5-9) Ur Specific [place] (1.010-1.030) Urine Protein (Negative) Urine Ketones (Negative) Urine Blood (Negative) Urine Nitrate (Negative) Urine Bilirubin (Negative) Urine Urobilinogen (Negative) Ur Leukocyte Esterase (Negative) Urine WBC (Auto) (Absent) Urine RBC (Auto) (Absent) Ur Squamous Epith Cells (Absent) Urine Bacteria (Absent) Urine Glucose (Negative) Result Diagrams: 01/25/19 17:10 01/25/19 17:10 Lab Statement: Any lab studies that have been ordered have been reviewed, and results considered in the medical decision making process. GIGU Course/Dx - Course Course Of Treatment: Patient complains of right-sided flank pain, nausea vomiting, increased urinary urge and frequency starting today. History of ureteral stent placed 2 weeks ago on right side by Dr. Cook in [place]. Denies fever, cough, sore throat, CP, SOB, diarrhea, abdominal pain, change in BM, vaginal pain, discharge or bleeding. History of pyeloplasty 2017. Vital signs within normal limits. Potassium 2.8, which is patient's baseline. Labs otherwise unremarkable. Urine positive for UTI. KUB positive for right side ureteral stent. Patient's pain controlled. Rx for pain control. Patient will follow-up with Dr. Bryan Perez tomorrow. Patient understands and approves of plan. - Diagnoses Provider Diagnoses: Right flank pain, Nausea & vomiting, UTI (urinary tract infection) Discharge - Sign-Out/Discharge Documenting (check all that apply): Patient Departure Patient Received Moderate/Deep Sedation with Procedure: No - Discharge Plan Condition: Stable Disposition: HOME Prescriptions: Ondansetron ODT TAB* [Zofran 4 MG Odt TAB*] 4 mg PO Q8H PRN 4 Days #14 tab.odt PRN Reason: Nausea Oxycodone HCl 5 mg PO Q6H 3 Days #12 tablet MDD 4 tabs Sulfamethox/Trimethoprim DS* [Bactrim DS 800/160 TAB*] 1 tab PO BID 10 Days #20 tab Patient Education Materials: Urinary Tract Infection in Women (ED), Flank Pain (ED), Ureteral Stent Placement (DC) Referrals: No Primary Care Phys,NOPCP [Primary Care Provider] - Additional Instructions: Follow-up with your urologist Dr. Cook at [place] tomorrow morning. Take pain medication as directed. - Billing Disposition and Condition Condition: STABLE Disposition: Home
[2019-01-25] MEDS ORDERED: Sulfamethox/Trimethoprim DS 800/160* TAB PO ONE (22:17)
[2019-01-25 23:01] VITALS: BP 118/78
== END 2019-01-25 22:59 | disposition home or self-care (01) ==
LOC: ED 16:19
DX: R11.2 Nausea with vomiting, unspecified (principal); R10.31 Right lower quadrant pain; N39.0 Urinary tract infection, site not specified; Z88.6 Allergy status to analgesic agent; Z88.1 Allergy status to other antibiotic agents; Z88.5 Allergy status to narcotic agent; Z88.8 Allergy status to other drugs, medicaments and biological substances; Z87.891 Personal history of nicotine dependence; Z96.0 Presence of urogenital implants
CPT/HCPCS: 36415; 74018; 80053; 81003; 81015; 83605; 83690; 85025; 86140; 87086; 96374; 96375; 99282; A9270-GY; J2270; J2405

== ENCOUNTER 2019-03-28 07:55 | Emergency (ER) | payer BC ==
[2019-03-28 08:14] VITALS: BP 123/83
--- NOTE | 2019-03-28 08:50 | UC ---
Abdominal Pain Female HPI - HPI Summary HPI Summary: 33 yo female with the onset of loose (not watery stools) about 3 days ago yesterday developed nausea.vomiting and dry heaves no UTI symptoms no abd pain no recent travel or camping no recent antibiotics - History of Current Complaint Chief Complaint: UCGeneralIllness Stated Complaint: VOMITING DIARRHEA Time Seen by Provider: 03/28/19 08:18 Hx Obtained From: Patient Hx Last Menstrual Period: on depo Onset/Duration: Gradual Onset, Lasting Days Timing: Constant Severity Initially: Mild Severity Currently: Moderate Pain Intensity: 0 Pain Scale Used: 0-10 Numeric Location: Other - has some mild diffuse abd pain prior to stooling and vomiting Radiates: No Character: Cramping Alleviating Factor(s): NPO Associated Signs and Symptoms: Positive: Negative, Decreased Appetite, Nausea, Vomiting Allergies/Adverse Reactions: Allergies Allergy/AdvReac Type Severity Reaction Status Date / Time dihydroergotamine Allergy Severe See Comment Verified 03/28/19 08:04 hydromorphone [From Dilaudid] Allergy Severe See Comment Verified 03/28/19 08:04 shellfish derived Allergy Severe Anaphylatic Verified 03/28/19 08:04 Shock tramadol Allergy Severe Hallucinati Verified 03/28/19 08:04 ons neomycin Allergy Intermediate Swelling Verified 03/28/19 08:04 NSAIDS (Non-Steroidal AdvReac Severe GI Upset Verified 03/28/19 08:04 Anti-Inflamma molds Allergy Severe Anaphylatic Uncoded 03/28/19 08:04 Shock Home Medications: Home Medications Metoclopramide TAB* [Reglan TAB*] 10 mg PO PRN 03/28/19 [History] PMH/Surg Hx/FS Hx/Imm Hx Previously Healthy: Yes GI/ History: Other - pyelo Other History Of: Negative For: HIV, Hepatitis B, Hepatitis C, Anticoagulant Therapy - Surgical History Surgical History: Yes Surgery Procedure, Year, and Place: UPPER PELVIC GRAFT [address] [place] [address]. SCAR TISSUE REMOVED- AGE 25. LAPAROSCOPIC PYLOPLASTY 05/16/2018 [facility]. LAPAROSCOPIC PYLOPLASTY 07/04 [facility]. utetal buckle graft - Family History Known Family History: Positive: Hypertension, Diabetes - Social History Alcohol Use: Rare Alcohol Amount: 2 DRINKS/MONTH Substance Use Type: Marijuana Substance Use Comment - Amount & Last Used: rarely Smoking Status (MU): Never Smoked Tobacco Amount Used/How Often: 1/2 CIGARETTE 2 X YR SOCIALLY Have You Smoked in the Last Year: No - Immunization History Most Recent Tetanus Shot: UTD Review of Systems All Other Systems Reviewed And Are Negative: Yes Constitutional: Positive: Negative Skin: Positive: Negative Eyes: Positive: Negative ENT: Positive: Negative Respiratory: Positive: Negative Cardiovascular: Positive: Negative Gastrointestinal: Positive: Vomiting, Diarrhea, Nausea Genitourinary: Positive: Negative Motor: Positive: Negative Neurovascular: Positive: Negative Musculoskeletal: Positive: Negative Neurological: Positive: Negative Psychological: Positive: Negative Physical Exam Triage Information Reviewed: Yes Appearance: Well-Appearing, No Pain Distress, Well-Nourished Vital Signs: Initial Vital Signs Temp 98.4 F 03/28/19 08:07 Pulse 86 03/28/19 08:07 Resp 18 03/28/19 08:07 BP 123/83 03/28/19 08:07 Pulse Ox 98 03/28/19 08:07 Vital Signs Reviewed: Yes Eyes: Positive: Conjunctiva Clear ENT: Positive: Hearing grossly normal. Negative: Nasal congestion, Nasal drainage, Trismus, Muffled voice, Hoarse voice Neck: Positive: Supple, Nontender, No Lymphadenopathy Respiratory: Positive: Lungs clear, Normal breath sounds, No respiratory distress Cardiovascular: Positive: RRR, No Murmur Abdomen Description: Positive: Nontender, No Organomegaly, Soft. Negative: CVA Tenderness (R), CVA Tenderness (L) Bowel Sounds: Positive: Present, Hyperactive Musculoskeletal: Positive: ROM Intact, No Edema Neurological: Positive: Alert Psychological Exam: Normal Skin Exam: Normal Abd Pain Female Course/Dx - Differential Dx/Diagnosis Provider Diagnosis: Gastroenteritis Discharge ED - Sign-Out/Discharge Documenting (check all that apply): Patient Departure All imaging exams completed and their final reports reviewed: No Studies - Discharge Plan Condition: Stable Disposition: HOME Patient Education Materials: Gastroenteritis (ED) Forms: *Work Release Referrals: No Primary Care Phys,NOPCP [Primary Care Provider] - Additional Instructions: rest clear liquids slowly advance diet as tolerate to ER for new or worsening symptoms recheck tomorrow AM if not better Try phenergan INSTEAD of reglan Don't take both meds together If you find that the reglan worked better you can stop the phenergan and resume the reglan - Billing Disposition and Condition Condition: STABLE Disposition: Home
== END 2019-03-28 09:08 | disposition home or self-care (01) ==
LOC: UCEAST 07:55
DX: K52.9 Noninfective gastroenteritis and colitis, unspecified (principal)
CPT/HCPCS: 99212; G0463

== ENCOUNTER 2019-05-05 13:43 | Emergency (ER) | payer BC ==
[2019-05-05] MEDS ORDERED: NS 0.9% 1000 ML** 1,000 ML IV ONE (14:10)
[2019-05-05] MEDS ORDERED: Morphine 4 MG/ML VIAL (1 ml) 4 MG/ML VIAL IV ONE (14:10)
[2019-05-05] MEDS ORDERED: Ondansetron INJ* 2 MG/ML VIAL IV ONE (14:10)
--- NOTE | 2019-05-05 14:19 | ED ---
Abdominal Pain/Female - HPI Summary HPI Summary: Pt. is a 33 y.o female who presents to the ER for upper abd. pain for about 5 days. Pt. notes she has a hx of chronic obstructive right ureter causing hydro. Pt. states she had a new stent placed by her urologist in [place] on Tuesday. Pt. states prior to stent she has been having RUQ pain. After stent pain became worse. She notes vomiting and diarrhea. Pt. states pain does not feel secondary to stent. Pt. notes she has been having frequent vomiting and diarrhea. Notes she finished an antibx last week for UTI. Pt. denies fever, cp, sob, dysuria, hematuria. Sxs are moderate in severity. No current modifying factors. - History of Current Complaint Chief Complaint: EDAbdPain Stated Complaint: ABDOMINAL PAIN PER PT Time Seen by Provider: 05/05/19 13:57 Hx Obtained From: Patient Hx Last Menstrual Period: on depo Pain Intensity: 9 Allergies/Adverse Reactions: Allergies Allergy/AdvReac Type Severity Reaction Status Date / Time dihydroergotamine Allergy Severe See Comment Verified 05/05/19 13:48 hydromorphone [From Dilaudid] Allergy Severe See Comment Verified 05/05/19 13:48 shellfish derived Allergy Severe Anaphylatic Verified 05/05/19 13:48 Shock tramadol Allergy Severe Hallucinati Verified 05/05/19 13:48 ons neomycin Allergy Intermediate Swelling Verified 05/05/19 13:48 NSAIDS (Non-Steroidal AdvReac Severe GI Upset Verified 05/05/19 13:48 Anti-Inflamma molds Allergy Severe Anaphylatic Uncoded 03/28/19 08:04 Shock PMH/Surg Hx/FS Hx/Imm Hx Previously Healthy: Yes Endocrine/Hematology History: Reports: Other Endocrine/Hematological Disorders - low K+, low Mg, enlarged right kidney Denies: Hx Anticoagulant Therapy, Hx Bone Marrow Disease, Hx Diabetes, Hx Sickle Cell Disease, Hx Thyroid Disease, Hx Anemia Cardiovascular History: Denies: Hx Congestive Heart Failure, Hx Deep Vein Thrombosis, Hx Hypertension , Hx Myocardial Infarction, Hx Pacemaker/ICD Respiratory History: Reports: Hx Asthma - asthmatic bronchitis, Hx Seasonal Allergies - year round - takes cetirizine Denies: Hx Chronic Obstructive Pulmonary Disease (COPD), Hx Lung Cancer, Hx Pneumonia, Hx Pulmonary Embolism GI History: Reports: Hx Gastroesophageal Reflux Disease, Other GI Disorders - HX OF CHRONIC GASTRITIS Denies: Hx Gall Bladder Disease, Hx Gastrointestinal Bleed, Hx Ulcer, Hx Urosepsis History: Reports: Hx Kidney Infection, Hx Kidney Stones, Hx Renal Disease - ? RENAL INSUFF? h/o GI bleed - NO NSAIDS, Other Problems/Disorders - HYDRONEPHROSIS Musculoskeletal History: Reports: Hx Tendonitis - HX OF- RIGHT HIP Sensory History: Reports: Hx Contacts or Glasses - GLASSES Denies: Hx Cataracts, Hx Glaucoma, Hx Hearing Aid Opthamlomology History: Reports: Hx Contacts or Glasses - GLASSES Denies: Hx Cataracts, Hx Glaucoma Neurological History: Reports: Hx Migraine - OCCASIONALLY, Other Neuro Impairments/Disorders - MENIERE'S DISEASE Denies: Hx Dementia, Hx Seizures, Hx Transient Ischemic Attacks (TIA) Psychiatric History: Reports: Hx Depression - TAKES RX Denies: Hx Anxiety, Hx Schizophrenia, Hx Bipolar Disorder - Cancer History Hx Chemotherapy: No - Surgical History Surgery Procedure, Year, and Place: UPPER PELVIC GRAFT [address] [place] [address]. SCAR TISSUE REMOVED- AGE 25. LAPAROSCOPIC PYLOPLASTY 05/16/2018 [facility]. LAPAROSCOPIC PYLOPLASTY 07/04 [facility]. utetal buckle graft Hx Anesthesia Reactions: No - Immunization History Date of Tetanus Vaccine: 03/2011 Date of Influenza Vaccine: 2016 Infectious Disease History: No Infectious Disease History: Reports: History Other Infectious Disease - Herpes Denies: Hx Hepatitis, Hx Human Immunodeficiency Virus (HIV), Traveled Outside the in Last 30 Days - Family History Known Family History: Positive: Hypertension, Diabetes, Non-Contributory - Social History Occupation: Employed Full-time Lives: With Family Alcohol Use: Rare Alcohol Amount: 2 DRINKS/MONTH Hx Substance Use: No Substance Use Type: Reports: Marijuana Substance Use Comment - Amount & Last Used: rarely Hx Tobacco Use: No Smoking Status (MU): Never Smoked Tobacco Amount Used/How Often: 1/2 CIGARETTE 2 X YR SOCIALLY Have You Smoked in the Last Year: No Review of Systems Constitutional: Negative Negative: Fever Cardiovascular: Negative Negative: Chest Pain Respiratory: Negative Negative: Shortness Of Breath, Cough Positive: Abdominal Pain, Vomiting, Diarrhea, Nausea Genitourinary: Negative Neurological: Negative All Other Systems Reviewed And Are Negative: Yes Physical Exam Triage Information Reviewed: Yes Vital Signs On Initial Exam: Initial Vitals Temp Pulse Resp BP Pulse Ox 98.1 F 122 18 121/101 98 05/05/19 13:44 05/05/19 13:44 05/05/19 13:44 05/05/19 13:44 05/05/19 13:44 Vital Signs Reviewed: Yes Appearance: Positive: Pain Distress - Pt. sitting up in bed holding right side. Appears in pain but nontoxic. Skin: Positive: Warm, Dry Head/Face: Positive: Normal Head/Face Inspection Eyes: Positive: Normal, EOMI Neck: Positive: Supple Respiratory/Lung Sounds: Positive: Clear to Auscultation, Breath Sounds Present Cardiovascular: Positive: Normal, RRR Abdomen Description: Positive: Other: - Abd. is soft with diffuse upper abd. pain. Minimal CVA tenderness. Neurological: Positive: Normal, CN Intact II-III Psychiatric: Positive: Affect/Mood Appropriate Procedures - Sedation Patient Received Moderate/Deep Sedation with Procedure: No Diagnostics - Vital Signs Vital Signs Temp Pulse Resp BP Pulse Ox 05/05/19 13:44 98.1 F 122 18 121/101 98 - Laboratory Result Diagrams: 05/05/19 14:23 05/05/19 14:23 Lab Statement: Any lab studies that have been ordered have been reviewed, and results considered in the medical decision making process. Abdominal Pain Fem Course/Dx - Course Course Of Treatment: Pt. presenting with RUQ pain. Appears fairly uncomfortable but nontoxic. Pt. given IV fluids, zofran and morphine. Will obtain labs and GB u/s/. GB U/S per radiology: IMPRESSION: 1. NORMAL EXAMINATION OF THE GALLBLADDER. 2. THERE IS MILD PROMINENCE OF THE COMMON BILE DUCT. 3. CHRONIC SEVERE RIGHT HYDRONEPHROSIS UNCHANGED FROM THE PRIOR CT STUDY. THERE IS A. URETERAL STENT IN PLACE. CBC unremarkable. Mild elevation in cr 1.18, GFR 63. U /A shows protein, blood, trace WBCs, and no bacteria, at pt.'s baseline compared to prior u/a s. Pt. examined by Dr. Cobb. Her pain is now located to RLQ and is very tender to palpation. Dr. Cobb recommends CT to evaluate appendix. CT negative for acute findings per radiology. Pt. does not she has been having ongoing diarrhea. She does not she finished an antibx last week for uti. Stool cultures ordered but pt. unable to provide sample. On rexam pt. resting comfortably. Will dc home to f.u with her urologist and pcp. TO return to er if sxs change or worsen. Pt. understands and agrees with plan. - Diagnoses Differential Diagnosis: Positive: Appendicitis, Bowel Obstruction, Constipation , Gall Bladder Disease, Hepatitis, Pancreatitis, Renal Colic, Urinary Tract Infection Provider Diagnoses: Vomiting and diarrhea, Abdominal pain Discharge ED - Sign-Out/Discharge Documenting (check all that apply): Patient Departure - Discharge Plan Condition: Improved Disposition: HOME Prescriptions: Ondansetron TAB* [Zofran 4 MG Tab*] 4 mg PO Q6H PRN #12 tab PRN Reason: Nausea Patient Education Materials: Gastroenteritis (ED), Acute Abdominal Pain (ED) Referrals: [facility] [Outside] Additional Instructions: Please schedule a follow up appointment with your kidney doctor and the [facility] Increase fluids Zofran as directed Will call if stool cultures are positive Return to ER if symptoms change or worsen - Billing Disposition and Condition Condition: IMPROVED Disposition: Home - Attestation Statements Provider Attestation: I was available for consult. This patient was seen by the [facility]. The patient was not presented to, seen by, or examined by me. Liam Cobb MD
[2019-05-05 14:45] LABS: ABS Basophils 0.1 10^3/ul (0-0.2); ABS Eosinophils 0.2 10^3/ul (0-0.6); ABS Lymphocytes 1.7 10^3/ul (1.0-4.8); ABS Monocytes 0.9 10^3/ul (0-0.8); ABS Neutrophils 4.6 10^3/ul (1.5-7.7); Hematocrit 38 % (35-47); Lymphocyte % 22.8 %; Mean Corpuscular HGB Conc 34 g/dL (31-36); Mean Corpuscular Hemoglobin 31 pg (27-31); Mean Corpuscular Volume 92 fL (80-97); Mean Platelet Volume 8.5 fL (7.4-10.4); Platelet Count 259 10^3/uL (150-450); Red Blood Count 4.17 10^6 /uL (3.70-4.87); Red Cell Distribution Width 15 % (10-15); White Blood Count 7.5 10^3/uL (3.5-10.8)
[2019-05-05 14:55] LABS: HCG Pregnancy < 0.60 mIU/mL
[2019-05-05 15:09] LABS: ALT 9 U/L (7-52); AST 15 U/L (13-39); Albumin 4.5 g/dL (3.2-5.2); Albumin/Globulin Ratio 1.5 (1-3); Alkaline Phosphatase 64 U/L (34-104); Anion Gap 10 mmol/L (2-11); Blood Urea Nitrogen 13 mg/dL (6-24); C Reactive Protein 5.44 mg/L (<8.01); CO2 Carbon Dioxide 24 mmol/L (22-32); Calcium 9.6 mg/dL (8.6-10.3); Chloride 106 mmol/L (101-111); EGFR African American 63.4 (>60); EGFR Non-African American 52.4 (>60); Globulin 3.1 g/dL (2-4); Glucose 82 mg/dL (70-100); Potassium 3.5 mmol/L (3.5-5.0); Sodium 140 mmol/L (135-145); Total Protein 7.6 g/dL (6.4-8.9)
[2019-05-05 15:37] LABS: Urine Appearance Clear; Urine Bacteria Absent (Absent); Urine Bilirubin Negative (Negative); Urine Blood 2+ (Negative); Urine Color Straw; Urine Glucose Negative (Negative); Urine Ketones Negative (Negative); Urine Nitrite Negative (Negative); Urine Protein 2+(100 mg/dL) (Negative); Urine Red Blood Cell 2+(6-10/hpf) (Absent); Urine Specific Gravity 1.008 (1.010-1.030); Urine Squamous Epithelial Cell Present (Absent); Urine Urobilinogen Negative (Negative); Urine White Blood Cell Trace(0-5/hpf) (Absent)
[2019-05-05] MEDS ORDERED: Iodixanol* (CONTRAST) 320 MG/ML 100 ML SDV IV ONE (16:35)
[2019-05-05 17:33] VITALS: BP 103/82
== END 2019-05-05 17:32 | disposition home or self-care (01) ==
LOC: ED 13:43
DX: R11.10 Vomiting, unspecified (principal); R19.7 Diarrhea, unspecified; R10.9 Unspecified abdominal pain
CPT/HCPCS: 36415; 74177; 76705; 80053; 81003; 81015; 83605; 83690; 84702; 85025; 86140; 87086; 96361; 96374; 96375; 99283; J2270; J2405; Q9967

== ENCOUNTER 2019-05-21 18:05 | Emergency (ER) | payer BC ==
[2019-05-21 19:58] LABS: Urine Appearance Turbid; Urine Bacteria Absent (Absent); Urine Bilirubin Negative (Negative); Urine Blood 2+ (Negative); Urine Color Yellow; Urine Glucose Negative (Negative); Urine Ketones Trace (Negative); Urine Nitrite Negative (Negative); Urine Protein 2+(100 mg/dL) (Negative); Urine Red Blood Cell 3+(>10/hpf) (Absent); Urine Specific Gravity 1.013 (1.010-1.030); Urine Squamous Epithelial Cell Present (Absent); Urine Urobilinogen Negative (Negative); Urine White Blood Cell 3+(>20/hpf) (Absent)
[2019-05-21 22:11] LABS: ABS Eosinophils 0.1 10^3/ul (0-0.6); ABS Lymphocytes 2.1 10^3/ul (1.0-4.8); ABS Monocytes 0.9 10^3/ul (0-0.8); ABS Neutrophils 6.8 10^3/ul (1.5-7.7); Eosinophil % 0.8 %; Hematocrit 35 % (35-47); Hemoglobin 11.7 g/dL (12.0-16.0); Lymphocyte % 21.4 %; Mean Corpuscular HGB Conc 34 g/dL (31-36); Mean Corpuscular Hemoglobin 31 pg (27-31); Mean Corpuscular Volume 92 fL (80-97); Mean Platelet Volume 8.3 fL (7.4-10.4); Nucleated Red Blood Cells % 0.1; Platelet Count 240 10^3/uL (150-450); Red Blood Count 3.76 10^6 /uL (3.70-4.87); Red Cell Distribution Width 14 % (10-15); White Blood Count 9.9 10^3/uL (3.5-10.8)
[2019-05-21 22:20] LABS: Activated Partial Thrombo Time 32.5 seconds (26.0-38.0); INR 1.03 (0.82-1.09)
[2019-05-21 22:30] LABS: Albumin 4.3 g/dL (3.2-5.2); Albumin/Globulin Ratio 1.7 (1-3); BUN/Creatinine Ratio 16.9 (8-20); Calcium 9.4 mg/dL (8.6-10.3); EGFR African American 103.8 (>60); EGFR Non-African American 85.8 (>60); Globulin 2.5 g/dL (2-4); Potassium 3.1 mmol/L (3.5-5.0); Total Bilirubin 0.7 mg/dL (0.2-1.0); Total Protein 6.8 g/dL (6.4-8.9)
[2019-05-21] MEDS ORDERED: Ondansetron ODT TAB* 4 MG SL PRN (22:54)
[2019-05-21] MEDS ORDERED: Cephalexin CAP* 500 MG PO ONE (22:55)
--- NOTE | 2019-05-21 22:59 | ED ---
GI/ HPI - HPI Summary HPI Summary: The patient is a 33 y/o F presenting to [facility] with a chief complaint of UTI symptoms for the last three days. She reports that she gets frequent UTIs secondary to the renal diseases she is diagnosed with, and the symptoms she is experiencing now, which include right flank pain, dysuria, nausea, and vomiting multiple times (everything Katalina eaten today), are typical for her UTIs. She also notes that she has been to warm to touch but doesn't have a measured fever. Currently, her pain is rated 6/10 in severity. Uses depo shot. PMHx: ureteral stent, colon polyps, Menieres disease, gastritis, D&C. 4 kidney repairs. Nonsmoker, rare EtOH, marijuana use. Medications reviewed. Allergies noted. - History of Current Complaint Chief Complaint: EDUrogenitalProblems Time Seen by Provider: 05/21/19 22:45 Stated Complaint: POSS UTI PER PT Hx Obtained From: Patient Hx Last Menstrual Period: on depo Onset/Duration: Started Days Ago - three, Still Present Timing: Lasting Days Severity: Mild Current Severity: Moderate Pain Intensity: 6 Location of Pain: Flank - right Pain Characteristics: Sharp Associated Signs and Symptoms: Positive: Nausea, Vomiting, Fever - warm sensation, Dysuria, UTI Symptoms Additional Signs & Symptoms: Positive: Depo provera Aggravating Factor(s): Voiding Alleviating Factor(s): Nothing - Allergy/Home Medications Allergies/Adverse Reactions: Allergies Allergy/AdvReac Type Severity Reaction Status Date / Time dihydroergotamine Allergy Severe See Comment Verified 05/21/19 18:11 hydromorphone [From Dilaudid] Allergy Severe See Comment Verified 05/21/19 18:11 shellfish derived Allergy Severe Anaphylatic Verified 05/21/19 18:11 Shock tramadol Allergy Severe Hallucinati Verified 05/21/19 18:11 ons neomycin Allergy Intermediate Swelling Verified 05/21/19 18:11 NSAIDS (Non-Steroidal AdvReac Severe GI Upset Verified 05/21/19 18:11 Anti-Inflamma molds Allergy Severe Anaphylatic Uncoded 03/28/19 08:04 Shock PMH/Surg Hx/FS Hx/Imm Hx Endocrine/Hematology History: Reports: Other Endocrine/Hematological Disorders - low K+, low Mg, enlarged right kidney Denies: Hx Anticoagulant Therapy, Hx Bone Marrow Disease, Hx Diabetes, Hx Sickle Cell Disease, Hx Thyroid Disease, Hx Anemia Cardiovascular History: Denies: Hx Congestive Heart Failure, Hx Deep Vein Thrombosis, Hx Hypertension , Hx Myocardial Infarction, Hx Pacemaker/ICD Respiratory History: Reports: Hx Asthma - asthmatic bronchitis, Hx Seasonal Allergies - year round - takes cetirizine Denies: Hx Chronic Obstructive Pulmonary Disease (COPD), Hx Lung Cancer, Hx Pneumonia, Hx Pulmonary Embolism GI History: Reports: Hx Gastroesophageal Reflux Disease, Other GI Disorders - HX OF CHRONIC GASTRITIS Denies: Hx Gall Bladder Disease, Hx Gastrointestinal Bleed, Hx Ulcer, Hx Urosepsis History: Reports: Hx Kidney Infection, Hx Kidney Stones, Hx Renal Disease - ? RENAL INSUFF? h/o GI bleed - NO NSAIDS, Other Problems/Disorders - HYDRONEPHROSIS Musculoskeletal History: Reports: Hx Tendonitis - HX OF- RIGHT HIP Sensory History: Reports: Hx Contacts or Glasses - GLASSES Denies: Hx Cataracts, Hx Glaucoma, Hx Hearing Aid Opthamlomology History: Reports: Hx Contacts or Glasses - GLASSES Denies: Hx Cataracts, Hx Glaucoma Neurological History: Reports: Hx Migraine - OCCASIONALLY, Other Neuro Impairments/Disorders - MENIERE'S DISEASE Denies: Hx Dementia, Hx Seizures, Hx Transient Ischemic Attacks (TIA) Psychiatric History: Reports: Hx Depression - TAKES RX Denies: Hx Anxiety, Hx Schizophrenia, Hx Bipolar Disorder - Cancer History Hx Chemotherapy: No - Surgical History Surgical History: Yes Surgery Procedure, Year, and Place: UPPER PELVIC GRAFT 1989 [facility]. SCAR TISSUE REMOVED- AGE 25. LAPAROSCOPIC PYLOPLASTY 05/16/2018 [facility]. LAPAROSCOPIC PYLOPLASTY 07/04 [facility]. utetal buckle graft Hx Anesthesia Reactions: No - Immunization History Date of Tetanus Vaccine: 03/2011 Date of Influenza Vaccine: 2016 Infectious Disease History: No Infectious Disease History: Reports: History Other Infectious Disease - Herpes Denies: Hx Hepatitis, Hx Human Immunodeficiency Virus (HIV), Traveled Outside the [place] in Last 30 Days - Family History Known Family History: Positive: Hypertension, Diabetes - Social History Alcohol Use: Rare Alcohol Amount: 2 DRINKS/MONTH Hx Substance Use: No Substance Use Type: Reports: Marijuana Substance Use Comment - Amount & Last Used: rarely Hx Tobacco Use: No Smoking Status (MU): Never Smoked Tobacco Amount Used/How Often: 1/2 CIGARETTE 2 X YR SOCIALLY Have You Smoked in the Last Year: No Review of Systems - ROS Summary Review of Systems Summary: Home Medications Medication Instructions Recorded Confirmed Type Albuterol HFA INHALER* [Ventolin 2 puff INH Q4H PRN 09/06/17 05/21/19 History HFA Inhaler*] Sertraline* [Zoloft*] 50 mg PO QAM 09/06/17 05/21/19 History Triamterene/HCTZ 37.5-25 MG* 1 cap PO BID 11/02/17 05/21/19 History [Dyazide CAP*] Cetirizine* [ZyrTEC 10 MG TAB*] 10 mg PO QPM 06/06/18 05/21/19 History Acetaminophen [Tylenol Extra 1,000 mg PO Q6HR PRN 10/27/18 05/21/19 History Strength] medroxyPROGESTERone ACETATE* 150 mg IM Q3M 10/27/18 05/21/19 History [DEPO-Provera] Cephalexin CAP* [Keflex CAP*] 500 mg PO TID #30 cap 05/21/19 Rx Fluconazole 150 MG TAB* [Diflucan 150 mg PO ONCE #1 tablet 05/21/19 Rx 150 MG TAB*] Ondansetron ODT TAB* [Zofran 4 MG 4 mg SL Q6H PRN #12 tab 05/21/19 Rx Odt TAB*] Positive: Fever - warm sensation Positive: Vomiting, Nausea Positive: dysuria, flank pain - right All Other Systems Reviewed And Are Negative: Yes Physical Exam - Summary Physical Exam Summary: General: Well-developed, Well-nourished female. No acute distress. HEENT: Normocephalic, Atraumatic. Eyes: Conjuctiva normal, PERRL. Ears: TMs within normal limits. Nares: (-) discharge, (-) erythema. Oropharynx: Clear, mucous membranes moist, (-) exudates. Neck: Soft, FROM, (-) lymphadenopathy, (-) thyromegaly, (-) JVD. Cardiovascular: Normal sinus rhythm, (-) murmur. Lungs: Clear to auscultation bilaterally (-) wheezes, (-) rales, (-) rhonchi. Abdomen: Soft, non-tender, non-distended, (-) organomegaly, normal bowel sounds. Back: (+) right CVA tenderness Extremities: No edema. Skin: Warm, dry, (-) rash. Neuro: Alert and oriented x3, no focal deficits. Psychiatric: Mood normal, affect normal. Triage Information Reviewed: Yes Vital Signs On Initial Exam: Initial Vitals Temp Pulse Resp BP Pulse Ox 99.0 F 101 18 134/96 99 05/21/19 18:07 05/21/19 18:07 05/21/19 18:07 05/21/19 18:07 05/21/19 18:07 Vital Signs Reviewed: Yes Procedures - Sedation Patient Received Moderate/Deep Sedation with Procedure: No Diagnostics - Vital Signs Vital Signs Temp Pulse Resp BP Pulse Ox 05/21/19 22:03 81 127/95 98 05/21/19 22:00 87 99 05/21/19 21:59 83 99 05/21/19 19:37 98.4 F 98 16 135/109 98 05/21/19 18:07 99.0 F 101 18 134/96 99 - Laboratory Lab Results: Lab Results 05/21/19 05/21/19 05/21/19 Range/Units 19:37 22:03 22:03 WBC 9.9 (3.5-10.8) 10^3/uL RBC 3.76 (3.70-4.87) 10^6 /uL Hgb 11.7 L (12.0-16.0) g/dL Hct 35 (35-47) % MCV 92 (80-97) fL MCH 31 (27-31) pg MCHC 34 (31-36) g/dL RDW 14 (10-15) % Plt Count 240 (150-450) 10^3/uL MPV 8.3 (7.4-10.4) fL Neut % (Auto) 68.3 % Lymph % (Auto) 21.4 % Henderson % (Auto) 9.0 % Eos % (Auto) 0.8 % Baso % (Auto) 0.5 % Absolute Neuts (auto) 6.8 (1.5-7.7) 10^3/ul Absolute Lymphs (auto) 2.1 (1.0-4.8) 10^3/ul Absolute Monos (auto) 0.9 H (0-0.8) 10^3/ul Absolute Eos (auto) 0.1 (0-0.6) 10^3/ul Absolute Basos (auto) 0.0 (0-0.2) 10^3/ul Absolute Nucleated RBC 0.0 10^3/ul Nucleated RBC % 0.1 INR (Anticoag Therapy) 1.03 (0.82-1.09) APTT 32.5 (26.0-38.0) seconds Sodium (135-145) mmol/L Potassium (3.5-5.0) mmol/L Chloride (101-111) mmol/L Carbon Dioxide (22-32) mmol/L Anion Gap (2-11) mmol/L BUN (6-24) mg/dL Creatinine (0.51-0.95) mg/dL Est GFR ( Amer) (>60) Est GFR (Non-Af Amer) (>60) BUN/Creatinine Ratio (8-20) Glucose (70-100) mg/dL Lactic Acid (0.5-2.0) mmol/L Calcium (8.6-10.3) mg/dL Total Bilirubin (0.2-1.0) mg/dL AST (13-39) U/L ALT (7-52) U/L Alkaline Phosphatase (34-104) U/L Troponin I (<0.04) ng/mL Total Protein (6.4-8.9) g/dL Albumin (3.2-5.2) g/dL Globulin (2-4) g/dL Albumin/Globulin Ratio (1-3) Urine Color Yellow Urine Appearance Turbid Urine pH 6.0 (5-9) Ur Specific [place] 1.013 (1.010-1.030) Urine Protein 2+(100 mg/dl) A (Negative) Urine Ketones Trace A (Negative) Urine Blood 2+ A (Negative) Urine Nitrate Negative (Negative) Urine Bilirubin Negative (Negative) Urine Urobilinogen Negative (Negative) Ur Leukocyte Esterase 3+ A (Negative) Urine WBC (Auto) 3+(>20/hpf) A (Absent) Urine RBC (Auto) 3+(>10/hpf) A (Absent) Ur Squamous Epith Cells Present A (Absent) Urine Bacteria Absent (Absent) Urine Glucose Negative (Negative) 05/21/19 05/21/19 Range/Units 22:03 22:03 WBC (3.5-10.8) 10^3/uL RBC (3.70-4.87) 10^6 /uL Hgb (12.0-16.0) g/dL Hct (35-47) % MCV (80-97) fL MCH (27-31) pg MCHC (31-36) g/dL RDW (10-15) % Plt Count (150-450) 10^3/uL MPV (7.4-10.4) fL Neut % (Auto) % Lymph % (Auto) % Henderson % (Auto) % Eos % (Auto) % Baso % (Auto) % Absolute Neuts (auto) (1.5-7.7) 10^3/ul Absolute Lymphs (auto) (1.0-4.8) 10^3/ul Absolute Monos (auto) (0-0.8) 10^3/ul Absolute Eos (auto) (0-0.6) 10^3/ul Absolute Basos (auto) (0-0.2) 10^3/ul Absolute Nucleated RBC 10^3/ul Nucleated RBC % INR (Anticoag Therapy) (0.82-1.09) APTT (26.0-38.0) seconds Sodium 139 (135-145) mmol/L Potassium 3.1 L (3.5-5.0) mmol/L Chloride 106 (101-111) mmol/L Carbon Dioxide 25 (22-32) mmol/L Anion Gap 8 (2-11) mmol/L BUN 13 (6-24) mg/dL Creatinine 0.77 (0.51-0.95) mg/dL Est GFR ( Amer) 103.8 (>60) Est GFR (Non-Af Amer) 85.8 (>60) BUN/Creatinine Ratio 16.9 (8-20) Glucose 85 (70-100) mg/dL Lactic Acid 0.6 (0.5-2.0) mmol/L Calcium 9.4 (8.6-10.3) mg/dL Total Bilirubin 0.70 (0.2-1.0) mg/dL AST 14 (13-39) U/L ALT 10 (7-52) U/L Alkaline Phosphatase 65 (34-104) U/L Troponin I 0.00 (<0.04) ng/mL Total Protein 6.8 (6.4-8.9) g/dL Albumin 4.3 (3.2-5.2) g/dL Globulin 2.5 (2-4) g/dL Albumin/Globulin Ratio 1.7 (1-3) Urine Color Urine Appearance Urine pH (5-9) Ur Specific [place] (1.010-1.030) Urine Protein (Negative) Urine Ketones (Negative) Urine Blood (Negative) Urine Nitrate (Negative) Urine Bilirubin (Negative) Urine Urobilinogen (Negative) Ur Leukocyte Esterase (Negative) Urine WBC (Auto) (Absent) Urine RBC (Auto) (Absent) Ur Squamous Epith Cells (Absent) Urine Bacteria (Absent) Urine Glucose (Negative) Result Diagrams: 05/21/19 22:03 05/21/19 22:03 Lab Statement: Any lab studies that have been ordered have been reviewed, and results considered in the medical decision making process. Re-Evaluation - Re-Evaluation First Eval Re-Evaluation Time: 23:00 Change: Improved Comment: I have discussed results with the patient. Discussed symptoms that warrant immediate return to ED. GIGU Course/Dx - Course Course Of Treatment: 33-year-old female with chronic UTIs from kidney disease. She states she's had multiple surgeries for reconstruction of her kidney. She is currently planned for a nephrectomy. Patient declines any IV fluids or IV antibiotics. Requests by mouth tablets and Zofran. Patient tolerated first dose in the emergency room. Discharged home on Keflex and Zofran. Diflucan. Follow up with PCP. Follow up sooner for any worsening symptoms. - Diagnoses Provider Diagnoses: UTI (urinary tract infection) Discharge ED - Sign-Out/Discharge Documenting (check all that apply): Patient Departure - Patient will be discharged home. - Discharge Plan Condition: Stable Disposition: HOME Prescriptions: Cephalexin CAP* [Keflex CAP*] 500 mg PO TID #30 cap Fluconazole 150 MG TAB* [Diflucan 150 MG TAB*] 150 mg PO ONCE #1 tablet Ondansetron ODT TAB* [Zofran 4 MG Odt TAB*] 4 mg SL Q6H PRN #12 tab PRN Reason: Nausea/Vomiting Patient Education Materials: Urinary Tract Infection in Women (DC) Referrals: [facility] [Outside] - 3 Days Care [facility] [Outside] - 3 Days Additional Instructions: Please follow up with your primary care physician within three days. Please return to ED for any new or worsening symptoms. - Billing Disposition and Condition Condition: STABLE Disposition: Home - Attestation Statements Document Initiated by Gailibe: Yes Documenting Scribe: Kaya Zuluaga Provider For Whom Royer is Documenting (Include Credential): Dr. Yokasta Lazar MD Scribe Attestation: Kaya Garnica scribed for Dr. Yokasta Lazar MD on 05/22/19 at 0523. Scribe Documentation Reviewed: Yes Provider Attestation: The documentation as recorded by the Kaya jimenez accurately reflects the service I personally performed and the decisions made by me, Dr. Yokasta Lazar MD Status of Scribe Document: Viewed
[2019-05-21] MEDS ORDERED: Ondansetron ODT TAB* 4 MG ONE (23:00)
[2019-05-21 23:10] VITALS: BP 116/82
--- NOTE | 2019-05-24 06:20 | ED ---
Imaging and Labs Follow Up Follow Up Type: Labs/Cultures Labs/Culture Result: Urine culture preliminary shows 75 200,000 Escherichia coli. Awaiting culture and sensitivity. Patient was treated with Keflex and although we are awaiting sensitivity report and is assumed that this antibiotic is adequate to treat the strain of bacteria. Patient Communication/Plan: Patient treated appropriately. Nothing further at this time. Provider Diagnoses: UTI (urinary tract infection)
== END 2019-05-21 23:05 | disposition home or self-care (01) ==
LOC: ED 18:05
DX: N39.0 Urinary tract infection, site not specified (principal); Z87.440 Personal history of urinary (tract) infections; N28.9 Disorder of kidney and ureter, unspecified; R11.2 Nausea with vomiting, unspecified; R50.9 Fever, unspecified; F32.9 Major depressive disorder, single episode, unspecified; Z88.8 Allergy status to other drugs, medicaments and biological substances; Z88.6 Allergy status to analgesic agent; Z88.3 Allergy status to other anti-infective agents; Z88.5 Allergy status to narcotic agent; Z91.013 Allergy to seafood; Z72.0 Tobacco use
CPT/HCPCS: 36415; 80053; 81003; 81015; 83605; 84484; 85025; 85610; 85730; 87040; 87077; 87086; 87186; 99282; A9270-GY

== ENCOUNTER 2019-09-11 18:12 | Emergency (ER) | payer BC ==
[2019-09-11 18:56] LABS: Influenza B Molecular POSITIVE (Negative)
[2019-09-11 21:10] LABS: ABS Lymphocytes 1.2 10^3/ul (1.0-4.8); ABS Monocytes 0.9 10^3/ul (0-0.8); Eosinophil % 0.8 %; Hematocrit 38 % (35-47); Hemoglobin 13.2 g/dL (12.0-16.0); Lymphocyte % 23.4 %; Mean Corpuscular HGB Conc 35 g/dL (31-36); Mean Corpuscular Hemoglobin 32 pg (27-31); Mean Corpuscular Volume 92 fL (80-97); Mean Platelet Volume 8.6 fL (7.4-10.4); Nucleated Red Blood Cells % 0.1; Platelet Count 176 10^3/uL (150-450); Red Blood Count 4.06 10^6 /uL (3.70-4.87); Red Cell Distribution Width 15 % (10-15); White Blood Count 5.3 10^3/uL (3.5-10.8)
[2019-09-11 21:26] LABS: ALT 11 U/L (7-52); Albumin 4.6 g/dL (3.2-5.2); Albumin/Globulin Ratio 1.4 (1-3); Alkaline Phosphatase 72 U/L (34-104); BUN/Creatinine Ratio 11.3 (8-20); Blood Urea Nitrogen 18 mg/dL (6-24); C Reactive Protein 19.11 mg/L (<8.01); CO2 Carbon Dioxide 29 mmol/L (22-32); Calcium 9.4 mg/dL (8.6-10.3); Chloride 98 mmol/L (101-111); EGFR African American 44.6 (>60); EGFR Non-African American 36.9 (>60); Globulin 3.4 g/dL (2-4); Glucose 92 mg/dL (70-100); Sodium 136 mmol/L (135-145)
[2019-09-11 21:32] LABS: HCG Pregnancy < 0.60 mIU/mL
[2019-09-11 21:58] LABS: Anion Gap 9 mmol/L (2-11)
[2019-09-11 22:41] LABS: Urine Appearance Clear; Urine Bilirubin Negative (Negative); Urine Blood Negative (Negative); Urine Color Straw; Urine Glucose Negative (Negative); Urine Ketones Negative (Negative); Urine Nitrite Negative (Negative); Urine Protein Negative (Negative); Urine Specific Gravity 1.011 (1.010-1.030); Urine Urobilinogen Negative (Negative)
[2019-09-11 23:10] LABS: Potassium Redraw 3.9 mmol/L (3.5-5.0)
[2019-09-11] MEDS ORDERED: NS 0.9% 1000 ML** 1,000 ML IV ONE (23:20)
--- NOTE | 2019-09-11 23:41 | ED ---
Influenza-Like Illness - HPI Summary HPI Summary: Pt is a 33 y/o F presenting to the ED with a chief complaint of a flu-like illness. Starting 09/09/19, she experienced sore throat, coughing until she vomited, and feeling feverish. Today, she experienced R-sided flank pain. This is where she had her kidney removed a couple months ago for chronic kidney issues. Patient also has some diffuse abdominal pain. She has been feeling increasingly worse throughout the day, and her PCP's office advised her to come in. Symptoms initially started mid-day. She states she slept all of Tuesday. Was feeling a little better this morning and tried to go to work. However her symptoms have worsened through the day. - History of Current Complaint Chief Complaint: EDFluSymptoms Time Seen by Provider: 09/11/19 23:19 Hx Obtained From: Patient Onset/Duration: Gradual Onset, Lasting Days, Still Present Associated Signs & Symptoms: Fever, Cough, Sore Throat, Vomiting Related Hx: Possible Flu/Infectious Exposure - Allergy/Home Medications Allergies/Adverse Reactions: Allergies Allergy/AdvReac Type Severity Reaction Status Date / Time dihydroergotamine Allergy Severe See Comment Verified 08/10/19 13:22 hydromorphone [From Dilaudid] Allergy Severe See Comment Verified 08/10/19 13:22 shellfish derived Allergy Severe Anaphylatic Verified 08/10/19 13:22 Shock tramadol Allergy Severe Hallucinati Verified 08/10/19 13:22 ons neomycin Allergy Intermediate Swelling Verified 08/10/19 13:22 clams Allergy Anaphylatic Verified 08/10/19 13:22 Shock crab Allergy Anaphylatic Verified 08/10/19 13:22 Shock povidone-iodine Allergy Rash Verified 08/10/19 13:22 [From Betadine] soap [From Betadine] Allergy Rash Verified 08/10/19 13:22 NSAIDS (Non-Steroidal AdvReac Severe GI Upset Verified 08/10/19 13:22 Anti-Inflamma molds Allergy Severe Anaphylatic Uncoded 08/10/19 13:22 Shock Home Medications: Home Medications Sertraline* [Zoloft*] 50 mg PO QAM 09/06/17 [History Confirmed 08/10/19] Triamterene/HCTZ 37.5-25 MG* [Dyazide CAP*] 1 cap PO BID 11/02/17 [History Confirmed 08/10/19] Acetaminophen [Tylenol Extra Strength] 1,000 mg PO Q6HR PRN 10/27/18 [History Confirmed 08/10/19] medroxyPROGESTERone ACETATE* [DEPO-Provera*] 150 mg IM Q3M 10/27/18 [History Confirmed 08/10/19] Gabapentin CAP(*) [Neurontin 100 mg CAP(*)] 100 mg PO TID 08/10/19 [History Confirmed 08/10/19] ValACYclovir (*) [Valtrex 500 mg (*)] 500 mg PO DAILY 08/10/19 [History Confirmed 08/10/19] Zolpidem TAB* [Ambien TAB*] 5 mg PO BEDTIME PRN 08/10/19 [History Confirmed ] PMH/Surg Hx/FS Hx/Imm Hx Previously Healthy: Yes Endocrine/Hematology History: Reports: Other Endocrine/Hematological Disorders - low K+, low Mg, enlarged right kidney Denies: Hx Anticoagulant Therapy, Hx Bone Marrow Disease, Hx Diabetes, Hx Sickle Cell Disease, Hx Thyroid Disease, Hx Anemia Cardiovascular History: Denies: Hx Congestive Heart Failure, Hx Deep Vein Thrombosis, Hx Hypertension , Hx Myocardial Infarction, Hx Pacemaker/ICD Respiratory History: Reports: Hx Asthma - asthmatic bronchitis, Hx Seasonal Allergies - year round - takes cetirizine Denies: Hx Chronic Obstructive Pulmonary Disease (COPD), Hx Lung Cancer, Hx Pneumonia, Hx Pulmonary Embolism GI History: Reports: Hx Gastroesophageal Reflux Disease, Other GI Disorders - HX OF CHRONIC GASTRITIS Denies: Hx Gall Bladder Disease, Hx Gastrointestinal Bleed, Hx Ulcer, Hx Urosepsis History: Reports: Hx Kidney Infection, Hx Kidney Stones, Hx Renal Disease - ? RENAL INSUFF? h/o GI bleed - NO NSAIDS, Other Problems/Disorders - HYDRONEPHROSIS Musculoskeletal History: Reports: Hx Tendonitis - HX OF- RIGHT HIP Sensory History: Reports: Hx Contacts or Glasses - GLASSES Denies: Hx Cataracts, Hx Glaucoma, Hx Hearing Aid Opthamlomology History: Reports: Hx Contacts or Glasses - GLASSES Denies: Hx Cataracts, Hx Glaucoma Neurological History: Reports: Hx Migraine - OCCASIONALLY, Other Neuro Impairments/Disorders - MENIERE'S DISEASE Denies: Hx Dementia, Hx Seizures, Hx Transient Ischemic Attacks (TIA) Psychiatric History: Reports: Hx Depression - TAKES RX Denies: Hx Anxiety, Hx Schizophrenia, Hx Bipolar Disorder - Cancer History Hx Chemotherapy: No Hx Radiation Therapy: No - Surgical History Surgery Procedure, Year, and Place: UPPER PELVIC GRAFT 1989 [facility]. SCAR TISSUE REMOVED- AGE 25. LAPAROSCOPIC PYLOPLASTY 05/16/[facility]. LAPAROSCOPIC PYLOPLASTY 07/04 [facility]. utetal buckle graft Hx Anesthesia Reactions: No - Immunization History Date of Tetanus Vaccine: 03/2011 Date of Influenza Vaccine: 2016 Infectious Disease History: No Infectious Disease History: Reports: History Other Infectious Disease - Herpes Denies: Hx Hepatitis, Hx Human Immunodeficiency Virus (HIV), Traveled Outside the [place] in Last 30 Days - Family History Known Family History: Positive: Hypertension, Diabetes - Social History Alcohol Use: Rare Alcohol Amount: 2 DRINKS/MONTH Hx Substance Use: No Substance Use Type: Reports: Marijuana Substance Use Comment - Amount & Last Used: rarely Hx Tobacco Use: No Smoking Status (MU): Never Smoked Tobacco Amount Used/How Often: 1/2 CIGARETTE 2 X YR SOCIALLY Have You Smoked in the Last Year: No Review of Systems - ROS Summary Review of Systems Summary: Home Medications Medication Instructions Recorded Confirmed Type Sertraline* [Zoloft*] 50 mg PO QAM 09/06/17 08/10/19 History Triamterene/HCTZ 37.5-25 MG* 1 cap PO BID 11/02/17 08/10/19 History [Dyazide CAP*] Acetaminophen [Tylenol Extra 1,000 mg PO Q6HR PRN 10/27/18 08/10/19 History Strength] medroxyPROGESTERone ACETATE* 150 mg IM Q3M 10/27/18 08/10/19 History [DEPO-Provera*] Gabapentin CAP(*) [Neurontin 100 100 mg PO TID 08/10/19 08/10/19 History mg CAP(*)] ValACYclovir (*) [Valtrex 500 mg 500 mg PO DAILY 08/10/19 08/10/19 History (*)] Zolpidem TAB* [Ambien TAB*] 5 mg PO BEDTIME PRN 08/10/19 08/10/19 History Positive: Fever Positive: Sore Throat Positive: Cough Positive: Abdominal Pain, Vomiting, Nausea Positive: flank pain All Other Systems Reviewed And Are Negative: Yes Physical Exam - Summary Physical Exam Summary: General: Well-developed, Well-nourished female. Mildly ill-appearing. No acute distress. HEENT: Normocephalic, Atraumatic. Eyes: Conjuctiva normal, PERRL. Oropharynx: Clear, erythematous without exudates. Neck: Soft, FROM, (-) lymphadenopathy, (-) thyromegaly, (-) JVD. Cardiovascular: Normal sinus rhythm, (-) murmur. Lungs: Clear to auscultation bilaterally (-) wheezes, (-) rales, (-) rhonchi. Abdomen: Soft, non-tender, non-distended, (-) organomegaly, normal bowel sounds. Back: (-) CVA tenderness Extremities: No edema. Skin: Warm, dry, (-) rash. Neuro: Alert and oriented x3, moves all extremities equally. No ataxia. No gait disturbance. No sensory deficit. Normal strength, normal sensation. Psychiatric: Mood normal, affect normal. Triage Information Reviewed: Yes Vital Signs On Initial Exam: Initial Vitals Temp Pulse Resp BP Pulse Ox 99.0 F 123 18 143/94 97 09/11/19 18:14 09/11/19 18:14 09/11/19 18:14 09/11/19 18:14 09/11/19 18:14 Vital Signs Reviewed: Yes Procedures - Sedation Patient Received Moderate/Deep Sedation with Procedure: No Diagnostics - Vital Signs Vital Signs Temp Pulse Resp BP Pulse Ox 09/11/19 22:43 100 F 109 18 143/91 100 09/11/19 20:14 99.2 F 111 18 138/85 99 09/11/19 18:14 99.0 F 123 18 143/94 97 - Laboratory Lab Results: Lab Results 09/11/19 09/11/19 09/11/19 Range/Units 18:18 21:01 21:01 WBC 5.3 (3.5-10.8) 10^3/uL RBC 4.06 (3.70-4.87) 10^6 /uL Hgb 13.2 (12.0-16.0) g/dL Hct 38 (35-47) % MCV 92 (80-97) fL MCH 32 H (27-31) pg MCHC 35 (31-36) g/dL RDW 15 (10-15) % Plt Count 176 (150-450) 10^3/uL MPV 8.6 (7.4-10.4) fL Neut % (Auto) 57.0 % Lymph % (Auto) 23.4 % [place] % (Auto) 18.0 % Eos % (Auto) 0.8 % Baso % (Auto) 0.8 % Absolute Neuts (auto) 3.0 (1.5-7.7) 10^3/ul Absolute Lymphs (auto) 1.2 (1.0-4.8) 10^3/ul Absolute Monos (auto) 0.9 H (0-0.8) 10^3/ul Absolute Eos (auto) 0.0 (0-0.6) 10^3/ul Absolute Basos (auto) 0.0 (0-0.2) 10^3/ul Absolute Nucleated RBC 0.0 10^3/ul Nucleated RBC % 0.1 Sodium 136 (135-145) mmol/L Potassium TNP Chloride 98 L (101-111) mmol/L Carbon Dioxide 29 (22-32) mmol/L Anion Gap 9 (2-11) mmol/L BUN 18 (6-24) mg/dL Creatinine 1.60 H (0.51-0.95) mg/dL Est GFR ( Amer) 44.6 (>60) Est GFR (Non-Af Amer) 36.9 (>60) BUN/Creatinine Ratio 11.3 (8-20) Glucose 92 (70-100) mg/dL Lactic Acid (0.5-2.0) mmol/L Calcium 9.4 (8.6-10.3) mg/dL Total Bilirubin 0.30 (0.2-1.0) mg/dL AST TNP ALT 11 (7-52) U/L Alkaline Phosphatase 72 (34-104) U/L C-Reactive Protein 19.11 H (<8.01) mg/L Total Protein 8.0 (6.4-8.9) g/dL Albumin 4.6 (3.2-5.2) g/dL Globulin 3.4 (2-4) g/dL Albumin/Globulin Ratio 1.4 (1-3) Lipase 42 (11.0-82.0) U/L Beta HCG, Quant < 0.60 mIU/mL Urine Color Urine Appearance Urine pH (5-9) Ur Specific [place] (1.010-1.030) Urine Protein (Negative) Urine Ketones (Negative) Urine Blood (Negative) Urine Nitrate (Negative) Urine Bilirubin (Negative) Urine Urobilinogen (Negative) Ur Leukocyte Esterase (Negative) Urine Glucose (Negative) Influenza A (Rapid) Not Reportable Influenza B (Rapid) Positive H (Negative) 09/11/19 09/11/19 09/11/19 Range/Units 21:01 22:30 22:39 WBC (3.5-10.8) 10^3/uL RBC (3.70-4.87) 10^6 /uL Hgb (12.0-16.0) g/dL Hct (35-47) % MCV (80-97) fL MCH (27-31) pg MCHC (31-36) g/dL RDW (10-15) % Plt Count (150-450) 10^3/uL MPV (7.4-10.4) fL Neut % (Auto) % Lymph % (Auto) % [place] % (Auto) % Eos % (Auto) % Baso % (Auto) % Absolute Neuts (auto) (1.5-7.7) 10^3/ul Absolute Lymphs (auto) (1.0-4.8) 10^3/ul Absolute Monos (auto) (0-0.8) 10^3/ul Absolute Eos (auto) (0-0.6) 10^3/ul Absolute Basos (auto) (0-0.2) 10^3/ul Absolute Nucleated RBC 10^3/ul Nucleated RBC % Sodium (135-145) mmol/L Potassium 3.9 Chloride (101-111) mmol/L Carbon Dioxide (22-32) mmol/L Anion Gap (2-11) mmol/L BUN (6-24) mg/dL Creatinine (0.51-0.95) mg/dL Est GFR ( Amer) (>60) Est GFR (Non-Af Amer) (>60) BUN/Creatinine Ratio (8-20) Glucose (70-100) mg/dL Lactic Acid 0.8 (0.5-2.0) mmol/L Calcium (8.6-10.3) mg/dL Total Bilirubin (0.2-1.0) mg/dL AST 18 ALT (7-52) U/L Alkaline Phosphatase (34-104) U/L C-Reactive Protein (<8.01) mg/L Total Protein (6.4-8.9) g/dL Albumin (3.2-5.2) g/dL Globulin (2-4) g/dL Albumin/Globulin Ratio (1-3) Lipase (11.0-82.0) U/L Beta HCG, Quant mIU/mL Urine Color Straw Urine Appearance Clear Urine pH 6.0 (5-9) Ur Specific [place] 1.011 (1.010-1.030) Urine Protein Negative (Negative) Urine Ketones Negative (Negative) Urine Blood Negative (Negative) Urine Nitrate Negative (Negative) Urine Bilirubin Negative (Negative) Urine Urobilinogen Negative (Negative) Ur Leukocyte Esterase Negative (Negative) Urine Glucose Negative (Negative) Influenza A (Rapid) Influenza B (Rapid) (Negative) Result Diagrams: 09/11/19 21:01 09/11/19 22:39 Lab Statement: Any lab studies that have been ordered have been reviewed, and results considered in the medical decision making process. Flu Symptom Course/Dx - Course Course Of Treatment: 33-year-old female presents with headache since . Coughing vomiting. Severe fatigue and malaise. Also right flank pain. She is concerned because she had her kidney removed on the right couple months ago for chronic issues. Also some left abdominal pain. No diarrhea. No urinary complaints. On physical exam patient is mildly ill-appearing no other focal findings. She is positive for flu B. Given IV fluids and Zofran. Declined Tamiflu because she is out of the 48 hour window and due to her concerns regarding having a single kidney. Patient will be off work the rest of the week. Back to work on Tuesday. Advised plenty of fluids and rest. Tylenol as needed. Follow-up with PCP. Follow sooner for any worsening symptoms. - Diagnoses Provider Diagnoses: Influenza B Discharge ED - Sign-Out/Discharge Documenting (check all that apply): Patient Departure - Discharge Plan Condition: Stable Disposition: HOME Patient Education Materials: Influenza (ED) Forms: *Work Release Referrals: Caleb Reynoso NP [Primary Care Provider] - Additional Instructions: Follow up with your primary care provider within the next 1-3 days. Return to the emergency department with any new or worsening symptoms. - Billing Disposition and Condition Condition: STABLE Disposition: Home - Attestation Statements Document Initiated by Scribe: Yes Documenting Scribe: Janis Doss Provider For Whom Royer is Documenting (Include Credential): Yokasta Lazar MD. Scribe Attestation: Janis Garnica, scribed for Yokasta Lazar MD. on 09/12/19 at 0556. Scribe Documentation Reviewed: Yes Provider Attestation: The documentation as recorded by the [email or web address] cotter accurately reflects the service I personally performed and the decisions made by , Yokasta Lazar MD. Status of Scribe Document: Viewed
[2019-09-11] MEDS ORDERED: Ondansetron INJ* 2 MG/ML VIAL IV ONE (23:46)
[2019-09-12 01:52] VITALS: BP 120/69
== END 2019-09-12 02:15 | disposition home or self-care (01) ==
LOC: ED 18:12
DX: J10.1 Influenza due to other identified influenza virus with other respiratory manifestations (principal); R10.84 Generalized abdominal pain; K21.9 Gastro-esophageal reflux disease without esophagitis; Z87.442 Personal history of urinary calculi; F32.9 Major depressive disorder, single episode, unspecified; R11.2 Nausea with vomiting, unspecified
CPT/HCPCS: 36415; 80053; 81003; 83605; 83690; 84702; 85025; 86140; 99283; J2405